=== PATIENT | male | born 1965 | race Caucasian/White ===

== ENCOUNTER 2016-05-20 02:05 | Emergency (ER) | payer MEDICAID ==
[~2016-05-20] VITALS: Ht 185.4 cm; Wt 68.0 kg
[~2016-05-20 02:05] MED LIST: ATIVAN1 MG PO; CLINDAMYCIN150 M1 PO; FOLATE1 MG PO; LACTINEX1 TAB.CHEW PO; VITAMIN B1100 MG/ML PO
[2016-05-20 02:25] VITALS: BP 135/71
--- NOTE | 2016-05-20 02:30 | NUR ---
PATIENT TO OF 1
--- NOTE | 2016-05-20 02:34 | NUR ---
PATIENT MOVED TO BED 7
--- NOTE | 2016-05-20 02:39 | NUR ---
PATIENT BEING EVALUATED ER MD DR. MAGALLANES
--- NOTE | 2016-05-20 02:46 | NUR ---
50Y/M PATIENT PRESENTS TO ED WITH REQUEST FOR MEDS REFILLS. DENIES N/V/D; SKIN IS PINK/WARM/DRY; AAOX4 WITH EVEN AND STEADY GAIT; LUNGS CLEAR BL; HR EVEN AND REGULAR; PT DENIES ANY FEVER, CP, SOB, OR COUGH AT THIS TIME; PATIENT STATES PAIN OF 0/10 AT THIS TIME; VSS; PATIENT POSITIONED FOR COMFORT; HOB ELEVATED; BEDRAILS UP X2; BED DOWN. ER MD MADE AWARE OF PT STATUS.
--- NOTE | 2016-05-20 02:55 | NUR ---
Patient discharged with v/s stable. Written and verbal after care instructions given and explained. Patient alert, oriented and verbalized understanding of instructions. Ambulatory with steady gait. All questions addressed prior to discharge. ID band removed. Patient advised to follow up with PMD. Rx of TYLENOL 325 MG given. Patient educated on indication of medication including possible reaction and side effects. Opportunity to ask questions provided and answered.
[2016-05-20 02:58] VITALS: BP 130/75
== END 2016-05-20 02:55 | disposition home or self-care (01) ==
LOC: MED 02:05
DX: Z76.0 Encounter for issue of repeat prescription (principal); R00.0 Tachycardia, unspecified; R03.0 Elevated blood-pressure reading, without diagnosis of hypertension

== ENCOUNTER 2016-05-30 17:50 | Emergency (ER) | payer MEDICAID ==
[~2016-05-30] VITALS: Ht 182.9 cm; Wt 68.0 kg
[~2016-05-30 17:50] MED LIST changes: -ATIVAN1 MG PO; +CLIN150C99 PO; -CLINDAMYCIN150 M1 PO; -FOLATE1 MG PO; +FOLI1TAB19 PO; +LAC PO; -LACTINEX1 TAB.CHEW PO; +LORA-476 PO; -VITAMIN B1100 MG/ML PO; +VITB1I PO
--- NOTE | 2016-05-30 17:50 | NUR ---
1746--Patient was BIBA at this time and taken to bed 02 via gurney per EMS.
--- NOTE | 2016-05-30 17:51 | NUR ---
1747--Dr. Khalil evaluating patient at bedside.
[2016-05-30 17:52] VITALS: BP 106/68
[2016-05-30] MEDS ORDERED: NACL 0.9% 1,000 ML IV SCH (17:52)
[2016-05-30] MEDS ORDERED: KETOROLAC 30 MG/ML VIAL IVP ONE (18:00)
--- NOTE | 2016-05-30 18:00 | NUR ---
LAB AT BEDSIDE.
--- NOTE | 2016-05-30 18:00 | NUR ---
PATIENT IS A50 YO MALE BIB EMS FROM FIELD FOR ABDOMINAL PAIN FOR ONE MONTH STATES HE HAD APPENDECTOMY, GALL BLADDER AND HERNIA SURGERY ALL AT THE SAME TIME.
[2016-05-30 18:08] LABS: BASOPHILS # (AUTO) 0.2 K/uL (0.00-0.22); BASOPHILS % (AUTO) 2.3 % (0.0-2.0); EOSINOPHILS # (AUTO) 0.2 K/uL (0-0.4); EOSINOPHILS % (AUTO) 2.2 % (0.0-4.0); HEMATOCRIT 40.6 % (36-52); HEMOGLOBIN 13.5 g/dL (12.0-18.0); LYMPHOCYTES % (AUTO) 41.3 % (20.5-51.1); MEAN CORPUSCULAR HEMOGLOBIN 28 pg (27-31); MEAN CORPUSCULAR HGB CONC 33 g/dL (33-37); MEAN CORPUSCULAR VOLUME 84 fL (80-94); MONOCYTES # (AUTO) 0.7 K/uL (0.8-1.0); MONOCYTES % (AUTO) 9.7 % (1.7-9.3); NEUTROPHILS # (AUTO) 3.3 K/uL (1.8-7.7); NEUTROPHILS % (AUTO) 44.5 % (42.2-75.2); PLATELET COUNT (AUTO) 296 K/uL (140-450); RED BLOOD CELL COUNT(AUTO) 4.85 MIL/uL (4.20-6.10); RED CELL DISTRIBUTION WIDTH 13.1 % (11.6-13.7); WHITE BLOOD COUNT (AUTO) 7.4 K/uL (4.8-10.8)
--- NOTE | 2016-05-30 18:18 | NUR ---
Patient taken to CT via annette mcallister.
--- NOTE | 2016-05-30 18:18 | NUR ---
Karyna adams in [facility] - 05/30/16 at 1831 by ALEXIS Patient taken to bed 02 via annette garcia tech.
[2016-05-30 18:22] LABS: ANION GAP 17.4 (8-16); CALCIUM 8.6 mg/dL (8.5-10.1); CARBON DIOXIDE 24.2 mmol/L (21-32); POTASSIUM 3.6 mmol/L (3.5-5.1)
[2016-05-30 18:27] LABS: ALBUMIN 3.9 g/dL (3.4-5.0); TOTAL BILIRUBIN 0.6 mg/dL (0.0-1.0)
--- NOTE | 2016-05-30 18:28 | NUR ---
Patient back from CT via [facility].
--- NOTE | 2016-05-30 18:29 | NUR ---
PT BACK FROM RADIOLOGY VIA [facility].
[2016-05-30 19:10] VITALS: BP 121/76
[2016-05-30 19:12] LABS: APPEARANCE,URINE CLEAR (CLEAR); BILIRUBIN,URINE NEGATIVE (NEGATIVE); BLOOD, URINE NEGATIVE (NEGATIVE); COLOR,URINE YELLOW (YELLOW); LEUKOCYTE ESTERASE ,URINE NEGATIVE (NEGATIVE); NITRITE, URINE NEGATIVE (NEGATIVE); PROTEIN,URINE TRACE (NEGATIVE); UGLUCOSE NEGATIVE (NEGATIVE); UROBILINOGEN,URINE 0.2 EU/dL (0.2 - 1)
[2016-05-30 19:16] LABS: BACTERIA,URINE RARE /HPF (None Seen); MUCUS,URINE 3+ /LPF (None Seen); RBC,URINE 0-3 /HPF (0-5); SQUAMOUS EPITHELIAL CELL,UR None Seen /LPF (0-3 (FEW)); URINE AMORPHOUS URATE 1+ /HPF (None Seen); WBC,URINE 0-3 /HPF (0-5)
[2016-05-30 19:21] LABS: AMPHETAMINE, URINE POS. ng/ml (NEG <=1000); BARBITURATE, URINE NEG. ng/ml (NEG <=200); BENZODIAZEPINE, URINE NEG. ng/mL (NEG <=200); CANNABINOID, URINE NEG. ng/mL (NEG <=50); COCAINE, URINE NEG. ng/mL (NEG <=300); OPIATE, URINE NEG. ng/mL (NEG <=2000); PHENCYCLIDINE SCREEN,URINE NEG. ng/mL (NEG <=25)
== END 2016-05-30 19:11 | disposition home or self-care (01) ==
LOC: MED 17:50
DX: K80.20 Calculus of gallbladder without cholecystitis without obstruction (principal); F15.10 Other stimulant abuse, uncomplicated; F17.210 Nicotine dependence, cigarettes, uncomplicated; Z71.6 Tobacco abuse counseling; Z90.49 Acquired absence of other specified parts of digestive tract; Z90.89 Acquired absence of other organs
CPT/HCPCS: 36415; 74176; 80053; 80305; 81001; 83690; 85025; 96361; 96374; 99285; J1885; J7030

== ENCOUNTER 2016-08-16 00:20 | Emergency (ER) | payer MEDICAID, OTHER ==
[~2016-08-16] VITALS: Ht 182.9 cm; Wt 68.0 kg
[~2016-08-16 00:20] MED LIST changes: +ATIVAN1 MG PO; -CLIN150C99 PO; +CLINDAMYCIN150 M1 PO; +FOLATE1 MG PO; -FOLI1TAB19 PO; -LAC PO; +LACTINEX1 TAB.CHEW PO; -LORA-476 PO; +VITAMIN B1100 MG/ML PO; -VITB1I PO
--- NOTE | 2016-08-16 00:22 | NUR ---
PT MARIO WAGGONERS. TAKEN TO BED 4
--- NOTE | 2016-08-16 00:25 | NUR ---
Dr. Ragsdale evaluating patient at bedside.
[2016-08-16 00:30] VITALS: BP 135/95
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
[2016-08-16] MEDS ORDERED: NACL 0.9% 2,500 ML IV ONE (00:31)
[2016-08-16] MEDS ORDERED: ACETAMINOPHEN EXTRA STRENGTH 500 MG TAB PO ONE (00:35)
--- NOTE | 2016-08-16 01:07 | NUR ---
X-Ray at bedside.
--- NOTE | 2016-08-16 01:17 | NUR ---
URINAL IN PLACE, PT TRYING TO URINATE
--- NOTE | 2016-08-16 01:29 | NUR ---
RESULT OF URINE DIPSTICK RELAYED TO DR. FOSTER
[2016-08-16] MEDS ORDERED: AZITHROMYCIN 500 MG in DEXTROSE 5% 250 ML IV ONE (02:25)
[2016-08-16] MEDS ORDERED: KETOROLAC 30 MG/ML VIAL IVP ONE (02:25)
[2016-08-16] MEDS ORDERED: AZITHROMYCIN 500 MG INJ VIAL IV ONE (02:42)
[2016-08-16] MEDS ORDERED: cefTRIAXone 1,000 MG VIAL ONE (02:43)
[2016-08-16 06:10] VITALS: BP 114/76
--- NOTE | 2016-08-16 06:10 | NUR ---
Patient discharged with v/s stable. Written and verbal after care instructions given and explained. Patient verbalized understanding. Ambulatory with steady gait. All questions addressed prior to discharge. Advised to follow up with PMD.
== END 2016-08-16 06:10 | disposition home or self-care (01) ==
LOC: MED 00:20
DX: J18.9 Pneumonia, unspecified organism (principal); Z90.49 Acquired absence of other specified parts of digestive tract; F12.90 Cannabis use, unspecified, uncomplicated; F19.90 Other psychoactive substance use, unspecified, uncomplicated
CPT/HCPCS: 36415; 71010; 80053; 81001; 83605; 83690; 85025; 85610; 93005; 96361; 96365; 96367; 96375; 99285; J0456; J0696; J1885; J7030; J7060; Q0092

== ENCOUNTER 2016-08-26 13:38 | Emergency (ER) | payer OTHER ==
[~2016-08-26] VITALS: Ht 177.8 cm; Wt 68.0 kg
[~2016-08-26 13:38] MED LIST changes: -ATIVAN1 MG PO; +CLIN150C99 PO; -CLINDAMYCIN150 M1 PO; -FOLATE1 MG PO; +FOLI1TAB19 PO; +LAC PO; -LACTINEX1 TAB.CHEW PO; +LORA-476 PO; -VITAMIN B1100 MG/ML PO; +VITB1I PO
[2016-08-26] MEDS ORDERED: NACL 0.9% 1,000 ML IV ONE (13:45)
--- NOTE | 2016-08-26 13:51 | NUR ---
Pt taken to CT on EMS [place].
--- NOTE | 2016-08-26 14:01 | NUR ---
Pt back from CT and waiting in hallway for ER bed.
[2016-08-26 14:31] VITALS: BP 122/78
--- NOTE | 2016-08-26 14:38 | NUR ---
PT PLACED IN BED 5 BY EMS.
[2016-08-26 14:42] LABS: ANION GAP 12.4 (8-16); CALCIUM 8.3 mg/dL (8.5-10.1); CARBON DIOXIDE 26.2 mmol/L (21-32); CHLORIDE 104 mmol/L (98-107); CREATININE 0.8 mg/dL (0.6-1.3); GFR ARICAN-AMERICAN 131 mL/min (>90); GFR NON ARICAN-AMERICAN 108 mL/min (>90); GLUCOSE 116 mg/dL (74-106); POTASSIUM 3.6 mmol/L (3.5-5.1); SODIUM SERUM 139 mmol/L (136-145); UREA NITROGEN, BLOOD 17 mg/dL (7-18)
[2016-08-26 14:47] LABS: BASOPHILS # (AUTO) 0.2 K/uL (0.00-0.22); EOSINOPHILS # (AUTO) 0.3 K/uL (0-0.4); EOSINOPHILS % (AUTO) 5.1 % (0.0-4.0); HEMATOCRIT 39.8 % (36-52); HEMOGLOBIN 13.1 g/dL (12.0-18.0); LYMPHOCYTES # (AUTO) 2.3 K/uL (2.0-11.5); LYMPHOCYTES % (AUTO) 39.8 % (20.5-51.1); MEAN CORPUSCULAR HEMOGLOBIN 28 pg (27-31); MEAN CORPUSCULAR HGB CONC 33 g/dL (33-37); MEAN CORPUSCULAR VOLUME 84 fL (80-94); MONOCYTES # (AUTO) 0.6 K/uL (0.8-1.0); MONOCYTES % (AUTO) 10.5 % (1.7-9.3); NEUTROPHILS # (AUTO) 2.5 K/uL (1.8-7.7); PLATELET COUNT (AUTO) 297 K/uL (140-450); RED BLOOD CELL COUNT(AUTO) 4.74 MIL/uL (4.20-6.10); RED CELL DISTRIBUTION WIDTH 12.9 % (11.6-13.7); WHITE BLOOD COUNT (AUTO) 5.9 K/uL (4.8-10.8)
[2016-08-26 14:57] LABS: ALANINE AMINOTRANSFERASE 77 U/L (12-78); ALBUMIN 3.1 g/dL (3.4-5.0); ALKALINE PHOSPHATASE 110 U/L (46-116); ASPARTATE AMINOTRANSFERASE 50 U/L (15-37); TOTAL BILIRUBIN 0.2 mg/dL (0.0-1.0); TOTAL PROTEIN, SERUM 8.2 g/dL (6.4-8.2)
[2016-08-26 14:59] LABS: ACETAMINOPHEN < 0.5 ug/ml (10-30); ALCOHOL, BLOOD < 3 mg/dL (<3); SALICYLATE < 2.8 mg/dL (2.8-20.0)
--- NOTE | 2016-08-26 15:20 | NUR ---
PATIENT PRESENTS TO ED WITH AMS , SOMNOLENT . DENIES N/V/D; SKIN IS PINK/WARM/DRY; ORIENTED TO NAME PLACE TIME LUNGS CLEAR BL; HR EVEN AND REGULAR; PT DENIES ANY FEVER, CP, SOB, OR COUGH AT THIS TIME; PATIENT STATES PAIN OF 0/10 AT THIS TIME; VSS; PATIENT POSITIONED FOR COMFORT; HOB ELEVATED; BEDRAILS UP X2; BED DOWN. ER MD MADE AWARE OF PT STATUS.
--- NOTE | 2016-08-26 16:11 | NUR ---
PT SITTING UP EATING TUNA SANDWICH AND APPLE JUICE----DENIES CHESTER, NO EMESIS
[2016-08-26 16:26] VITALS: BP 125/82
== END 2016-08-26 16:27 | disposition home or self-care (01) ==
LOC: MED 13:38
DX: R41.82 Altered mental status, unspecified (principal); E86.0 Dehydration
CPT/HCPCS: 36415; 70450; 80053; 85025; 93005; 96360; 99285; G0480; G0482; J7030

== ENCOUNTER 2016-08-29 12:38 | Emergency (ER) | payer OTHER ==
[~2016-08-29] VITALS: Ht 188 cm; Wt 63.0 kg
--- NOTE | 2016-08-29 12:38 | NUR ---
Patient was BIBA and taken to bed 06 via gurney per EMS.
[2016-08-29 12:46] VITALS: BP 138/92
--- NOTE | 2016-08-29 12:46 | NUR ---
50/M MARIO FOUND SLEEPING ON THE GROUND [facility] DENTIST OFFICE.PER EMS PT C/O HAVE HEADACHE X 2 DAYS; DENIES N/V/D.BS FIELD 171.PATIENT SEEN HERE YESTERDAY.WITH WEAKNESS. PER PATIENT NOT TAKING MEDS. SKIN IS PINK/WARM/DRY; AAOX4 WITH EVEN AND STEADY GAIT; LUNGS CLEAR BL; HR EVEN AND REGULAR; PT DENIES ANY FEVER, CP, SOB, OR COUGH AT THIS TIME; PATIENT STATES PAIN OF 0/10 AT THIS TIME; VSS; PATIENT POSITIONED FOR COMFORT; HOB ELEVATED; BEDRAILS UP X2; BED DOWN. ER MD MADE AWARE OF PT STATUS.
--- NOTE | 2016-08-29 12:47 | NUR ---
Dr. Khalil evaluating patient at bedside.
[2016-08-29] MEDS ORDERED: NACL 0.9% 1,000 ML IV ONE (12:55)
[2016-08-29] MEDS ORDERED: MULTIVITAMIN 1 TAB PO ONE (12:55)
[2016-08-29] MEDS ORDERED: FOLIC ACID 1 MG TAB PO ONE (12:55)
[2016-08-29] MEDS ORDERED: THIAMINE 100 MG TAB PO ONE (12:55)
[2016-08-29 13:18] LABS: BASOPHILS # (AUTO) 0.2 K/uL (0.00-0.22); BASOPHILS % (AUTO) 3.4 % (0.0-2.0); EOSINOPHILS # (AUTO) 0.1 K/uL (0-0.4); EOSINOPHILS % (AUTO) 1.8 % (0.0-4.0); HEMATOCRIT 43.3 % (36-52); LYMPHOCYTES # (AUTO) 2.5 K/uL (2.0-11.5); LYMPHOCYTES % (AUTO) 43.4 % (20.5-51.1); MEAN CORPUSCULAR HEMOGLOBIN 27 pg (27-31); MEAN CORPUSCULAR HGB CONC 32 g/dL (33-37); MEAN CORPUSCULAR VOLUME 84 fL (80-94); MONOCYTES # (AUTO) 0.2 K/uL (0.8-1.0); MONOCYTES % (AUTO) 3.8 % (1.7-9.3); NEUTROPHILS # (AUTO) 2.8 K/uL (1.8-7.7); NEUTROPHILS % (AUTO) 47.6 % (42.2-75.2); PLATELET COUNT (AUTO) 311 K/uL (140-450); RED BLOOD CELL COUNT(AUTO) 5.14 MIL/uL (4.20-6.10); RED CELL DISTRIBUTION WIDTH 13.2 % (11.6-13.7); WHITE BLOOD COUNT (AUTO) 5.8 K/uL (4.8-10.8)
[2016-08-29 13:30] LABS: ANION GAP 11.9 (8-16); CALCIUM 9.1 mg/dL (8.5-10.1); CARBON DIOXIDE 29.8 mmol/L (21-32); CREATININE 0.8 mg/dL (0.6-1.3); POTASSIUM 3.7 mmol/L (3.5-5.1)
--- NOTE | 2016-08-29 13:30 | NUR ---
PT'S AAO X4 Patient appears to be resting comfortably in bed. Vital Signs within normal limits. Respirations even and unlabored.WILL CONTINUE TO MONITOR .
[2016-08-29 13:36] LABS: ALBUMIN 3.3 g/dL (3.4-5.0); MAGNESIUM 1.9 mg/dL (1.8-2.4); PHOSPHORUS 3.7 mg/dL (2.5-4.9); TOTAL BILIRUBIN 0.2 mg/dL (0.0-1.0)
[2016-08-29 14:10] LABS: THYROID STIMULATING HORMONE 0.72 uIU/mL (0.34-3.76)
[2016-08-29 14:21] LABS: TOTAL PROTEIN, SERUM 8.8 g/dL (6.4-8.2)
[2016-08-29 14:32] VITALS: BP 122/80
--- NOTE | 2016-08-29 14:32 | NUR ---
Karyna adams in ED - 08/29/16 at 1437 by [facility] Patient discharged with v/s stable. Written and verbal after care instructions given and explained. Patient verbalized understanding. Ambulatory with steady gait. All questions addressed prior to discharge. Advised to follow up with PMD.
--- NOTE | 2016-08-29 14:32 | NUR ---
Patient given written and verbal discharge instructions and verbalizes understanding. Given copies of tests performed during visit. Patient is awake, alert and oriented. Ambulatory with steady gait. Refuses offer of half-way placement. Given list of available shelters in surrounding areas.
[2016-08-29 14:45] LABS: APPEARANCE,URINE CLEAR (CLEAR); BILIRUBIN,URINE NEGATIVE (NEGATIVE); BLOOD, URINE NEGATIVE (NEGATIVE); COLOR,URINE YELLOW (YELLOW); LEUKOCYTE ESTERASE ,URINE NEGATIVE (NEGATIVE); NITRITE, URINE NEGATIVE (NEGATIVE); PROTEIN,URINE NEGATIVE (NEGATIVE); UGLUCOSE NEGATIVE (NEGATIVE); UROBILINOGEN,URINE 0.2 EU/dL (0.2 - 1)
[2016-08-29 14:58] LABS: AMPHETAMINE, URINE POS. ng/ml (NEG <=1000); BARBITURATE, URINE NEG. ng/ml (NEG <=200); BENZODIAZEPINE, URINE NEG. ng/mL (NEG <=200); CANNABINOID, URINE POS. ng/mL (NEG <=50); COCAINE, URINE NEG. ng/mL (NEG <=300); OPIATE, URINE NEG. ng/mL (NEG <=2000); PHENCYCLIDINE SCREEN,URINE NEG. ng/mL (NEG <=25)
== END 2016-08-29 14:32 | disposition home or self-care (01) ==
LOC: MED 12:38
DX: R53.1 Weakness (principal); R51 Headache; F20.9 Schizophrenia, unspecified; F31.9 Bipolar disorder, unspecified
CPT/HCPCS: 36415; 70450; 80053; 80305; 81003; 82948; 83735; 84100; 84443; 85025; 93005; 96360; 99285; J7030

== ENCOUNTER 2016-09-18 04:35 | Emergency (ER) | payer OTHER ==
[~2016-09-18] VITALS: Ht 190.5 cm; Wt 68.0 kg
--- NOTE | 2016-09-18 04:36 | NUR ---
MARIO ALS TO ER BED 5
[2016-09-18 04:42] VITALS: BP 120/70
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
[2016-09-18] MEDS ORDERED: LORazepam 2 MG/ML VIAL IM ONE (05:40)
[2016-09-18 06:08] VITALS: BP 127/73
--- NOTE | 2016-09-18 06:09 | NUR ---
Patient discharged with v/s stable. Written and verbal after care instructions given and explained. Patient alert, oriented and verbalized understanding of instructions. Ambulatory with steady gait. All questions addressed prior to discharge. ID band removed. Patient advised to follow up with PMD. NO Rx WERE given. Patient educated on indication of medication including possible reaction and side effects. Opportunity to ask questions provided and answered.
== END 2016-09-18 06:08 | disposition home or self-care (01) ==
LOC: MED 04:35
DX: R53.1 Weakness (principal); R51 Headache
CPT/HCPCS: 96372; 99283; J2060

== ENCOUNTER 2016-09-26 02:00 | Emergency (ER) | payer OTHER ==
[~2016-09-26] VITALS: Ht 185.4 cm; Wt 63.5 kg
[2016-09-26 02:10] VITALS: BP 136/103
--- NOTE | 2016-09-26 02:15 | NUR ---
TO ER BED 6
--- NOTE | 2016-09-26 02:20 | NUR ---
PATIENT PRESENTS TO ED WITH C/O FOOT PAIN . PT DENIES N/V/D; SKIN IS PINK/WARM/DRY; AAOX4 WITH EVEN AND STEADY GAIT; LUNGS CLEAR BL; HR EVEN AND REGULAR; PT DENIES ANY FEVER, CP, SOB, OR COUGH AT THIS TIME; PATIENT STATES PAIN OF 0/10 AT THIS TIME; VSS; PATIENT POSITIONED FOR COMFORT; HOB ELEVATED; BEDRAILS UP X2; BED DOWN. ER MD MADE AWARE OF PT STATUS.
--- NOTE | 2016-09-26 03:44 | NUR ---
Patient given written and verbal discharge instructions and verbalizes understanding. Patient is awake, alert and oriented. Ambulatory with steady gait. Refuses offer of fpc placement. Given list of available shelters in surrounding areas. Pt signed Homeless waiver copy.
[2016-09-26 03:45] VITALS: BP 121/80
== END 2016-09-26 03:45 | disposition home or self-care (01) ==
LOC: MED 02:00
DX: L84 Corns and callosities (principal); R03.0 Elevated blood-pressure reading, without diagnosis of hypertension; F19.90 Other psychoactive substance use, unspecified, uncomplicated
CPT/HCPCS: 99283

== ENCOUNTER 2016-10-13 14:52 | Emergency (ER) | payer OTHER ==
[~2016-10-13] VITALS: Ht 182.9 cm; Wt 64.0 kg
[2016-10-13 15:00] VITALS: BP 110/69
--- NOTE | 2016-10-13 15:25 | NUR ---
Patient ambulated to bed 4. RN evaluating patient at bedside.
--- NOTE | 2016-10-13 15:26 | NUR ---
50M BIB SELF C/O BL FEET PAIN X 6 MONTHS FROM " WALKING TOO MUCH" . PT STATES " HEARING VOICES, TALKING TO SELF"; PT STATES NO SUICIDAL IDEATION OR IDEAS OF HURTING SELF OR OTHERS AT THIS TIME. HX: HEP C, HTN, TB (1994). DENIES N/V/D; SKIN IS PINK/WARM/DRY; AAOX4 WITH EVEN AND STEADY GAIT; LUNGS CLEAR BL; HR EVEN AND REGULAR; PT DENIES ANY FEVER, CP, SOB, OR COUGH AT THIS TIME; PATIENT STATES PAIN OF 6/10 AT THIS TIME; VSS; PATIENT POSITIONED FOR COMFORT; HOB ELEVATED; BEDRAILS UP X2; BED DOWN. ER MD MADE AWARE OF PT STATUS.
--- NOTE | 2016-10-13 15:50 | NUR ---
ER MD DR CARO EVALUATING PT AT BEDSIDE.
[2016-10-13] MEDS ORDERED: MULTIVITAMIN-12 10 ML, THIAMINE 100 MG, MAGNESIUM SULFATE 50% 2,000 MG, FOLIC ACID 5 MG... IV ONE ×5 (15:57)
--- NOTE | 2016-10-13 16:16 | NUR ---
CALLED PHARMACY FOR BANANA BAG
[2016-10-13 16:22] LABS: HEMATOCRIT 43.6 % (36-52); HEMOGLOBIN 14.4 g/dL (12.0-18.0); MEAN CORPUSCULAR HEMOGLOBIN 27 pg (27-31); MEAN CORPUSCULAR HGB CONC 33 g/dL (33-37); MEAN CORPUSCULAR VOLUME 83 fL (80-94); PLATELET COUNT (AUTO) 257 K/uL (140-450); RED BLOOD CELL COUNT(AUTO) 5.25 MIL/uL (4.20-6.10); RED CELL DISTRIBUTION WIDTH 12.7 % (11.6-13.7); WHITE BLOOD COUNT (AUTO) 10.3 K/uL (4.8-10.8)
[2016-10-13 16:51] LABS: BAND % (MANUAL) 2 % (0-8); LYMPHOCYTES % (MANUAL) 44 % (20-46); MONOCYTES % (MANUAL) 8 % (5-12); NEUTROPHILS % (MANUAL) 46 (43-65); PLATELET ESTIMATE ADEQUATE
[2016-10-13 16:55] LABS: ANION GAP 12.1 (8-16); CALCIUM 9.3 mg/dL (8.5-10.1); CARBON DIOXIDE 26.6 mmol/L (21-32); CHLORIDE 102 mmol/L (98-107); CREATININE 1.1 mg/dL (0.7-1.3); GFR ARICAN-AMERICAN 90 mL/min (>90); GFR NON ARICAN-AMERICAN 75 mL/min (>90); GLUCOSE 82 mg/dL (74-106); POTASSIUM 4.7 mmol/L (3.5-5.1); SODIUM SERUM 136 mmol/L (136-145); UREA NITROGEN, BLOOD 24 mg/dL (7-18)
[2016-10-13 17:02] LABS: ALANINE AMINOTRANSFERASE 113 U/L (16-63); ALBUMIN 4.1 g/dL (3.4-5.0); ALCOHOL, BLOOD < 3 mg/dL (<3); ALKALINE PHOSPHATASE 137 U/L (46-116); ASPARTATE AMINOTRANSFERASE 68 U/L (15-37); TOTAL BILIRUBIN 0.7 mg/dL (0.0-1.0); TOTAL PROTEIN, SERUM 9.2 g/dL (6.4-8.2)
--- NOTE | 2016-10-13 17:13 | NUR ---
Karyna adams in ED - 10/13/16 at 1714 by MED1 ROSEANN CARO EVALUATING PT AT BEDSIDE.
--- NOTE | 2016-10-13 17:13 | NUR ---
ER MD DR CARO REEVALUATING PT AT BEDSIDE.
[2016-10-13 18:55] LABS: AMPHETAMINE, URINE POS. ng/ml (NEG <=1000); BARBITURATE, URINE NEG. ng/ml (NEG <=200); BENZODIAZEPINE, URINE NEG. ng/mL (NEG <=200); CANNABINOID, URINE NEG. ng/mL (NEG <=50); COCAINE, URINE NEG. ng/mL (NEG <=300); OPIATE, URINE NEG. ng/mL (NEG <=2000); PHENCYCLIDINE SCREEN,URINE NEG. ng/mL (NEG <=25)
--- NOTE | 2016-10-13 19:10 | NUR ---
GOT REPORT FROM STEFANIE SOTELO. PT. RESTING IN BED, NO S/SX OF DISTRESS.
--- NOTE | 2016-10-13 19:10 | NUR ---
Pt report given to STEFANIE PRUETT. Transfer of care at this time.
--- NOTE | 2016-10-13 19:40 | NUR ---
Patient discharged with v/s stable. Written and verbal after care instructions given and explained. Patient alert, oriented and verbalized understanding of instructions. Ambulatory with steady gait. All questions addressed prior to discharge. ID band removed. Patient advised to follow up with PMD. Rx of NORCO 5/325 MG given. Patient educated on indication of medication including possible reaction and side effects. Opportunity to ask questions provided and answered.
[2016-10-13 19:41] VITALS: BP 108/81
== END 2016-10-13 19:40 | disposition home or self-care (01) ==
LOC: MED 14:52
DX: M72.2 Plantar fascial fibromatosis (principal); F15.10 Other stimulant abuse, uncomplicated; I10 Essential (primary) hypertension
CPT/HCPCS: 36415; 80053; 80305; 85025; 96365; 96366; 99285; A9153; G0482; J3411; J3475; J3490; J7030

== ENCOUNTER 2016-10-25 01:15 | Emergency (ER) | payer OTHER ==
[~2016-10-25] VITALS: Ht 182.9 cm; Wt 68.0 kg
[2016-10-25 01:25] VITALS: BP 122/86
[2016-10-25 06:43] VITALS: BP 122/72
== END 2016-10-25 06:48 | disposition home or self-care (01) ==
LOC: MED 01:15
DX: R42 Dizziness and giddiness (principal); F19.90 Other psychoactive substance use, unspecified, uncomplicated; I10 Essential (primary) hypertension
CPT/HCPCS: 99283

== ENCOUNTER 2016-11-03 23:50 | Emergency (ER) | payer SELFPAY ==
--- NOTE | 2016-11-04 00:15 | NUR ---
PATIENT LEFT WITHOUT BEING SEEN BY DR. Hill. NO FURTHER CARE PROVIDED FOR PATIENT.
== END 2016-11-04 00:15 | disposition left against medical advice (07) ==
LOC: MED 23:50
DX: M79.673 Pain in unspecified foot (principal); Z53.21 Procedure and treatment not carried out due to patient leaving prior to being seen by health care provider

== ENCOUNTER 2016-11-04 16:17 | Inpatient (IN) | payer OTHER ==
[~2016-11-04] VITALS: Ht 182.9 cm; Wt 64.0 kg
[2016-11-04 16:33] VITALS: BP 114/73
[2016-11-04 17:37] LABS: BASOPHILS # (AUTO) 0.4 K/uL (0.00-0.22); BASOPHILS % (AUTO) 4.8 % (0.0-2.0); HEMATOCRIT 43.3 % (36-52); LYMPHOCYTES # (AUTO) 3.1 K/uL (2.0-11.5); MEAN CORPUSCULAR HEMOGLOBIN 27 pg (27-31); MEAN CORPUSCULAR HGB CONC 32 g/dL (33-37); MEAN CORPUSCULAR VOLUME 83 fL (80-94); MONOCYTES # (AUTO) 0.5 K/uL (0.8-1.0); NEUTROPHILS # (AUTO) 5.2 K/uL (1.8-7.7); PLATELET COUNT (AUTO) 297 K/uL (140-450); RED BLOOD CELL COUNT(AUTO) 5.22 MIL/uL (4.20-6.10); RED CELL DISTRIBUTION WIDTH 13.2 % (11.6-13.7); WHITE BLOOD COUNT (AUTO) 9.2 K/uL (4.8-10.8)
[2016-11-04 17:47] LABS: APPEARANCE,URINE CLEAR (CLEAR); BILIRUBIN,URINE 1+ (NEGATIVE); BLOOD, URINE 2+ (NEGATIVE); COLOR,URINE YELLOW (YELLOW); LEUKOCYTE ESTERASE ,URINE NEGATIVE (NEGATIVE); NITRITE, URINE NEGATIVE (NEGATIVE); UGLUCOSE NEGATIVE (NEGATIVE)
[2016-11-04 17:58] LABS: CARBON DIOXIDE 21.1 mmol/L (21-32); CREATININE 1.7 mg/dL (0.7-1.3); POTASSIUM 4.1 mmol/L (3.5-5.1)
[2016-11-04 18:02] LABS: RBC,URINE >100 /HPF (0-5)
[2016-11-04 18:03] LABS: ALBUMIN 4.3 g/dL (3.4-5.0); TOTAL BILIRUBIN 0.8 mg/dL (0.0-1.0)
[2016-11-04 18:03] LABS: WBC,URINE 0-5 (RARE) /HPF (0-5)
[2016-11-04] MEDS ORDERED: NACL 0.9% 1,000 ML IV ONE (18:10)
[2016-11-04] MEDS ORDERED: ACETAMINOPHEN 325 MG TAB PO PRN (18:40)
[2016-11-04] MEDS ORDERED: MORPHINE SULFATE 2 MG/ML SYR IVP PRN (18:40)
[2016-11-04] MEDS ORDERED: MORPHINE SULFATE 4 MG/ML SYR IVP PRN (18:40)
[2016-11-04] MEDS ORDERED: ONDANSETRON 4 MG/2 ML VIAL IVP PRN (18:40)
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
[2016-11-04] MEDS: IPRATROPIUM 0.02% 0.5 MG/2.5 ML NEBU IH SCH (19:34)
[2016-11-04] MEDS: ALBUTEROL 0.083% 2.5 MG/3 ML NEBU IH SCH (19:35)
--- NOTE | 2016-11-04 19:38 | NUR ---
Respiratory Therapist at bedside for respiratory intervention.
--- NOTE | 2016-11-04 19:47 | NUR ---
Note bryan in EDM - 11/04/16 at 2010 by MEDLeslieJJ Patient noted to have existing wounds upon arrival to ER. Photos taken of wound and placed in chart. Wound covered with dressing. Physician informed.
--- NOTE | 2016-11-04 19:50 | NUR ---
Patient will be admitted to care of DR PIMENTEL . Admited to TELE 123B. Will go to room 123B. Belongings list completed. Report to SARAH WATTS .
[2016-11-04 20:00] VITALS: BP 126/83
--- NOTE | 2016-11-04 20:00 | NUR ---
ADMITTED THIS 50 YEAR OLD MALE FROM ER PER SANDOVAL WITH CC OF CHEST PAIN AND SYNCOPE, AMBULATED TO BED WITH STEADY GAIT, ASSESSMENT DONE, VITAL SIGNS STABLE, WITH NON-RADIATING CHEST PAIN 4/10, WILL MEDICATE PRN, ORIENTED TO ROOM AND CALL LIGHT, SAFETY MEASURES IN PLACE, CALL LIGHT WITHIN REACH.
[2016-11-04] MEDS: NACL 0.9% 1,000 ML IV SCH (21:05)
--- NOTE | 2016-11-04 21:10 | NUR ---
SANDWICH PROVIDED, TOLERATED WELL, MEDICATED PRN WITH MORPHINE IVP FOR CHEST PAIN, ALL NEEDS ATTENDED.
--- NOTE | 2016-11-04 22:30 | NUR ---
ROUNDED ON PT, PT MUMBLES AND TALKS WHILE EYES IS CLOSED, EASILY AROUSABLE, PT SAID THAT HE TENDS TO TALK WHILE SLEEPING AND SAID JUST TO WAKE HIM UP TO STOP IT, BED ALARM ON, MONITORED CLOSELY.
[2016-11-05] VITALS: BP 100/72
[2016-11-05] MEDS: IPRATROPIUM 0.02% 0.5 MG/2.5 ML NEBU IH SCH ×3 (01:21→12:52)
[2016-11-05] MEDS: ALBUTEROL 0.083% 2.5 MG/3 ML NEBU IH SCH ×3 (01:21→12:52)
[2016-11-05 01:58] LABS: CREATINE KINASE MB 16.4 ng/mL (0-3.6)
--- NOTE | 2016-11-05 02:10 | NUR ---
PT VOIDING FREELY USING URINAL, PUDDING AND JUICE PROVIDED PER REQUEST, MONITORED CLOSELY.
[2016-11-05 04:00] VITALS: BP 101/65
--- NOTE | 2016-11-05 04:00 | NUR ---
PT SLEEPING, NO SIGNS OF DISTRESS, VITAL SIGNS STABLE, MONITORED CLOSELY.
[2016-11-05] MEDS: NACL 0.9% 1,000 ML IV SCH ×2 (04:40→08:22)
[2016-11-05 06:07] LABS: HEMATOCRIT 37.6 % (36-52); HEMOGLOBIN 12.4 g/dL (12.0-18.0); MEAN CORPUSCULAR HEMOGLOBIN 28 pg (27-31); MEAN CORPUSCULAR HGB CONC 33 g/dL (33-37); MEAN CORPUSCULAR VOLUME 85 fL (80-94); PLATELET COUNT (AUTO) 226 K/uL (140-450); RED BLOOD CELL COUNT(AUTO) 4.45 MIL/uL (4.20-6.10); RED CELL DISTRIBUTION WIDTH 13.6 % (11.6-13.7); WHITE BLOOD COUNT (AUTO) 7.8 K/uL (4.8-10.8)
[2016-11-05 06:44] LABS: ALBUMIN 3.1 g/dL (3.4-5.0); CARBON DIOXIDE 23.7 mmol/L (21-32); CREATININE 0.9 mg/dL (0.7-1.3); POTASSIUM 3.7 mmol/L (3.5-5.1); TOTAL BILIRUBIN 0.7 mg/dL (0.0-1.0)
[2016-11-05 07:21] LABS: LYMPHOCYTES % (MANUAL) 50 % (20-46)
[2016-11-05 07:22] LABS: EOSINOPHILS % (MANUAL) 2 % (0-4); MONOCYTES % (MANUAL) 14 % (5-12)
--- NOTE | 2016-11-05 07:30 | NUR ---
RECEIVED PT AAOX4. NO SOB NOTED. NO C/O PAIN AT THIS TIME. IV TO RT AC PATENT AND INTACT. CHEST CLEAR. ABDOMEN SOFT, BOWEL SOUNDS PRESENT. NO EDEMA NOTED. INSTRUCTED PT TO CALL FOR ASSISTANCE, CALL LIGHT WITHIN REACH, PT VERBALIZED UNDERSTANDING.
--- NOTE | 2016-11-05 07:30 | NUR ---
PT SLEEPING, NO SIGNS OF DISTRESS REPORT GIVEN TO RN MANUELITO FOR CONTINUITY OF CARE.
[2016-11-05 08:00] VITALS: BP 108/66
--- NOTE | 2016-11-05 08:06 | NUR ---
PATIENT HAS BEEN SCREENED AND CATEGORIZED HIGH NUTRITION RISK. PATIENT WILL BE SEEN WITHIN 1-2 DAYS OF ADMISSION. 11/05/16-11/06/[address]
[2016-11-05] MEDS ORDERED: ASPIRIN 81 MG TAB.CHEW PO SCH (09:00)
[2016-11-05] MEDS ORDERED: ENOXAPARIN 40 MG/0.4 ML SYR SUBQ SCH (09:00)
[2016-11-05] MEDS ORDERED: HYDROcodone/APAP 5/325 MG 1 TAB TAB PO PRN (09:20)
[2016-11-05 09:50] LABS: CREATINE KINASE MB 12.7 ng/mL (0-3.6)
--- NOTE | 2016-11-05 11:45 | NUR ---
URINE SPECIMEN COLLECTED AND SENT TO LAB.
[2016-11-05 12:00] VITALS: BP 96/66
[2016-11-05 12:12] LABS: APPEARANCE,URINE CLEAR (CLEAR); BILIRUBIN,URINE NEGATIVE (NEGATIVE); BLOOD, URINE NEGATIVE (NEGATIVE); COLOR,URINE YELLOW (YELLOW); LEUKOCYTE ESTERASE ,URINE NEGATIVE (NEGATIVE); NITRITE, URINE NEGATIVE (NEGATIVE); UGLUCOSE NEGATIVE (NEGATIVE)
--- NOTE | 2016-11-05 12:52 | NUR ---
PT REFUSED BREATHING TX NO SIGNS OF DISTRESS NOTED AND IF HE NEEDS TX HE WILL CALL
--- NOTE | 2016-11-05 14:27 | NUR ---
CM NOTE FAXED INITIAL REVIEW TO [facility] [phone] SUSANNA [phone]
--- NOTE | 2016-11-05 15:17 | NUR ---
11/05/16 RD INITIAL ASSESSMENT COMPLETED PLEASE REFER TO NUTRITION ASSESSMENT UNDER CARE ACTIVITY FOR ESTIMATED NUTRITIONAL NEEDS. 1. CONTINUE CARDIAC DIET 2. CONSIDER HEALTH SHAKE X 1 DAILY 3. REFER TO CROP SPECIALIST NEEDED 4. RD TO FOLLOW UP WITHIN 3-5 DAYS; MODERATE RISK THOMAS DOWD RD
[2016-11-05 16:00] VITALS: BP 103/68
--- NOTE | 2016-11-05 17:30 | NUR ---
Elva PAYAN CAME TO SEE PT. DISCHARGE ORDER GIVEN.
--- NOTE | 2016-11-05 18:00 | NUR ---
PT CONSUMED 100% OF DINNER SERVED, FOOD TOLERATED WELL. DISCHARGE INSTRUCTIONS GIVEN TO PT WHICH VERBALIZED FULL UNDERSTANDING OF THE INSTRUCTIONS AND THE NEED TO FOLLOW UP WITH PCP WITHIN 7 DAYS. T-SHIRT, PANTS AND BUS PASS PROVIDED. ARM BANDS AND IV REMOVED, CANNULA TIP INTACT.
--- NOTE | 2016-11-05 18:25 | NUR ---
PT WHEELED OUT TO THE FRONT LOBBY IN STABLE CONDITION. AAOX4. NO SOB NOTED. NO COMPLAINTS MADE. PT STATED HE WILL GO TO HIS DAD'S HOUSE BY BUS.
== END 2016-11-05 18:25 | disposition home or self-care (01) | DRG 469 ==
LOC: MED 16:17 → MTU 18:44
PROVIDERS: ADMIT Hospitalist; ATTEND Hospitalist
DX: N17.9 Acute kidney failure, unspecified (principal); M62.82 Rhabdomyolysis; F33.9 Major depressive disorder, recurrent, unspecified; F20.9 Schizophrenia, unspecified; B17.10 Acute hepatitis C without hepatic coma; R07.9 Chest pain, unspecified; E86.0 Dehydration; B19.20 Unspecified viral hepatitis C without hepatic coma; F10.10 Alcohol abuse, uncomplicated; F17.210 Nicotine dependence, cigarettes, uncomplicated; F15.90 Other stimulant use, unspecified, uncomplicated; Z59.0 Homelessness
CPT/HCPCS: 36415; 71010; 80053; 81001; 81003; 82550; 82553; 84484; 85025; 87081; 93005; 94640; 96360; 99285; J1650; J2270; J7030; J7613; J7644

== ENCOUNTER 2016-11-08 01:40 | Emergency (ER) | payer OTHER ==
[~2016-11-08] VITALS: Ht 182.9 cm; Wt 72.6 kg
[2016-11-08 01:43] VITALS: BP 132/90
--- NOTE | 2016-11-08 02:44 | NUR ---
TO ER BED 4
--- NOTE | 2016-11-08 02:45 | NUR ---
PATIENT PRESENTS TO ED WITH C/O DOG BITE TO RT CALF . PT DENIES N/V/D; SKIN IS PINK/WARM/DRY; AAOX4 WITH EVEN AND STEADY GAIT; LUNGS CLEAR BL; HR EVEN AND REGULAR; PT DENIES ANY FEVER, CP, SOB, OR COUGH AT THIS TIME; PATIENT STATES PAIN OF 0/10 AT THIS TIME; VSS; PATIENT POSITIONED FOR COMFORT; HOB ELEVATED; BEDRAILS UP X2; BED DOWN. ER MD MADE AWARE OF PT STATUS.
[2016-11-08 03:20] VITALS: BP 132/90
== END 2016-11-08 03:20 | disposition home or self-care (01) ==
LOC: MED 01:40
DX: S81.851A Open bite, right lower leg, initial encounter (principal); R03.0 Elevated blood-pressure reading, without diagnosis of hypertension; W54.0XXA Bitten by dog, initial encounter; Y93.89 Activity, other specified; Y92.89 Other specified places as the place of occurrence of the external cause; Y99.8 Other external cause status
CPT/HCPCS: 90471; 90715; 99283

== ENCOUNTER 2016-11-28 04:23 | Emergency (ER) | payer OTHER ==
[~2016-11-28] VITALS: Ht 182.9 cm; Wt 68.0 kg
[2016-11-28 04:34] VITALS: BP 120/62
--- NOTE | 2016-11-28 04:39 | NUR ---
50Y M BIB SELF FOR FOLLOW UP VISIT S/P DOG BITE X 3 WEEKS AGO PER PT; PT DOESNT RECALL WHAT LEG HE GOT THE DOG BITE AT THE MOMENT. PT DENIES ANY N/V/D, CP, SOB AT THE MOMENT. PT BREATHING IS UNLABORED AND CLEAR BILAT. PT AMBULATED TO CHAIR WITH STEADY GAIT. ER MD DR BOUDREAUX MADE AWARE
--- NOTE | 2016-11-28 04:39 | NUR ---
PT TAKEN TO OF
--- NOTE | 2016-11-28 04:41 | NUR ---
Dr. Caceres evaluating patient at bedside.
[2016-11-28 04:48] VITALS: BP 117/69
== END 2016-11-28 04:47 | disposition home or self-care (01) ==
LOC: MED 04:23
DX: S81.851D Open bite, right lower leg, subsequent encounter (principal); W54.0XXD Bitten by dog, subsequent encounter
CPT/HCPCS: 99281

== ENCOUNTER 2016-12-19 01:54 | Emergency (ER) | payer OTHER ==
[~2016-12-19] VITALS: Ht 185.4 cm; Wt 62.1 kg
[~2016-12-19 01:54] MED LIST changes: +ATIVAN1 MG PO; -CLIN150C99 PO; +CLINDAMYCIN150 M1 PO; +FOLATE1 MG PO; -FOLI1TAB19 PO; -LAC PO; +LACTINEX1 TAB.CHEW PO; -LORA-476 PO; +VITAMIN B1100 MG/ML PO; -VITB1I PO
[2016-12-19 02:10] VITALS: BP 99/73
[2016-12-19 02:16] VITALS: BP 113/65
--- NOTE | 2016-12-19 02:26 | NUR ---
PATIENT PRESENTS TO ED WITH C/O VISUAL HALLUCINATIONS. PT ADMITS TO METHAMPHETAMINE USE AND ETOH USE. PT DENIES N/V/D; SKIN IS PINK/WARM/DRY; AAOX4 WITH EVEN AND STEADY GAIT; LUNGS CLEAR BL; HR EVEN AND REGULAR; PT DENIES ANY FEVER, CP, SOB, OR COUGH AT THIS TIME; PATIENT STATES PAIN OF 0/10 AT THIS TIME; VSS; PATIENT POSITIONED FOR COMFORT; HOB ELEVATED; BEDRAILS UP X2; BED DOWN. ER MD MADE AWARE OF PT STATUS.
[2016-12-19] MEDS ORDERED: ASPIRIN 81 MG TAB.CHEW PO ONE (03:00)
[2016-12-19] MEDS ORDERED: NACL 0.9% 1,000 ML IV ONE (03:00)
--- NOTE | 2016-12-19 03:55 | NUR ---
Patient appears to be resting comfortably in bed. Vital Signs within normal limits. Respirations even and unlabored.
== END 2016-12-19 04:30 | disposition home or self-care (01) ==
LOC: MED 01:54
DX: R07.89 Other chest pain (principal); R44.3 Hallucinations, unspecified; F17.210 Nicotine dependence, cigarettes, uncomplicated
CPT/HCPCS: 36415; 71010; 80053; 84484; 85025; 85379; 85610; 85730; 93005; 96360; 99285; J7030; Q0092

== ENCOUNTER 2017-01-26 23:45 | Emergency (ER) | payer OTHER ==
[~2017-01-26] VITALS: Ht 185.4 cm; Wt 68.9 kg
[2017-01-26 23:53] VITALS: BP 146/98
--- NOTE | 2017-01-27 01:23 | NUR ---
PT TAKEN TO BED 8
--- NOTE | 2017-01-27 01:30 | NUR ---
Patient being evaluated by at bedside.
--- NOTE | 2017-01-27 01:49 | NUR ---
51 Y/O M W/C/O L SHOULDER PAIN X 2 YRS ON AND OFF. MED HX TUBERCULOSIS, HEP C , SCHIZOPHRENIA. AAO X4, AMBULATORY WITH STAEDY GAIT. C/O LT. SHOULDER PAIN 07/24. NO TRAUMA NOR INJURY. VSS, ER MADE AWARE OF PT. STATUS.
[2017-01-27] MEDS ORDERED: IBUPROFEN 600 MG TAB PO ONE (02:40)
[2017-01-27 02:56] VITALS: BP 140/92
--- NOTE | 2017-01-27 02:57 | NUR ---
Patient discharged with v/s stable. Written and verbal after care instructions given and explained. Patient alert, oriented and verbalized understanding of instructions. Ambulatory with steady gait. All questions addressed prior to discharge. ID band removed. Patient advised to follow up with PMD. Rx of IBUPROFEN 600MG TID/PRN given. Patient educated on indication of medication including possible reaction and side effects. Opportunity to ask questions provided and answered.
--- NOTE | 2017-01-27 02:58 | NUR ---
HOMELESS PATIENT WAIVER FORM SIGN BY PT
== END 2017-01-27 02:57 | disposition home or self-care (01) ==
LOC: MED 23:45
DX: M25.511 Pain in right shoulder (principal)
CPT/HCPCS: 99283

== ENCOUNTER 2017-02-28 17:25 | Emergency (ER) | payer OTHER ==
[~2017-02-28] VITALS: Ht 182.9 cm; Wt 70.9 kg
[2017-02-28 17:33] VITALS: BP 150/98
--- NOTE | 2017-02-28 17:37 | NUR ---
PT AMBULATED TO ER BED 10. ERMD NOTIFIED OF PATIENT STATUS.
--- NOTE | 2017-02-28 17:39 | NUR ---
51/M PRESENT TO ER C/O POSSIBLE BUG BITE ON LEFT FOOT x 2 WEEKS. HX: HTN MEDS: NONE; DENIES N/V/D; SKIN IS PINK/WARM/DRY; AAOX4 WITH EVEN AND STEADY GAIT; LUNGS CLEAR BL; HR EVEN AND REGULAR; PT DENIES ANY FEVER, CP, SOB, OR COUGH AT THIS TIME; PATIENT STATES PAIN OF 4/10 AT THIS TIME; VSS; PATIENT POSITIONED FOR COMFORT; HOB ELEVATED; BEDRAILS UP X2; BED DOWN. ER MD MADE AWARE OF PT STATUS.
--- NOTE | 2017-02-28 17:43 | NUR ---
DR MAYFIELD EVALUATING AAO PT AT BEDSIDE
--- NOTE | 2017-02-28 17:57 | NUR ---
Patient discharged with v/s stable. Written and verbal after care instructions given and explained. Patient verbalized understanding. Ambulatory with steady gait. All questions addressed prior to discharge. Advised to follow up with PMD. Addendum: 02/28/17 at 1758 by SHEREE PT PROVIDED SNACK
[2017-02-28 17:58] VITALS: BP 150/98
== END 2017-02-28 17:57 | disposition home or self-care (01) ==
LOC: MED 17:25
DX: M79.671 Pain in right foot (principal); F15.90 Other stimulant use, unspecified, uncomplicated; Z72.89 Other problems related to lifestyle; I10 Essential (primary) hypertension
CPT/HCPCS: 99281

== ENCOUNTER 2017-03-10 02:13 | Emergency (ER) | payer OTHER ==
[~2017-03-10] VITALS: Ht 185.4 cm; Wt 68.0 kg
--- NOTE | 2017-03-10 02:15 | NUR ---
PATIENT AMBULATED TO ER OF1.
[2017-03-10 02:19] VITALS: BP 127/81
[2017-03-10 02:23] VITALS: BP 127/81
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
--- NOTE | 2017-03-10 02:35 | NUR ---
Patient discharged with v/s stable. Written and verbal after care instructions given and explained. Patient alert, oriented and verbalized understanding of instructions. Ambulatory with steady gait. All questions addressed prior to discharge. ID band removed. Patient advised to follow up with PMD. Rx of Seroquel given. Patient educated on indication of medication including possible reaction and side effects. Opportunity to ask questions provided and answered.
== END 2017-03-10 02:35 | disposition home or self-care (01) ==
LOC: MED 02:13
DX: Z76.0 Encounter for issue of repeat prescription (principal); G47.00 Insomnia, unspecified; I10 Essential (primary) hypertension; F17.210 Nicotine dependence, cigarettes, uncomplicated
CPT/HCPCS: 99283

== ENCOUNTER 2017-03-11 11:15 | Emergency (ER) | payer SELFPAY ==
--- NOTE | 2017-03-11 11:28 | NUR ---
PT REQUESTING RX SEROQUEL REPRINT---WAS SEEN 03/10/[address] MAGALLANES--- WILL ASK IF CAN REPRINT RX OR WANT TO RE-EVALUATE
--- NOTE | 2017-03-11 11:37 | NUR ---
PT WAS TOLD HE WILL NOT RECEIVE ANOTHER PRESCRIPTION FOR SEROQUEL---WAS INSTRUCTED TO SEE HIS THERAPIST TODAY--- PER I ASKED PT IF THERE IS ANY OTHER REASON HE WANTED TO BE SEEN BY ER PHYSICIAN? PT STATED," HE WANTED ANOTHER TOOTH BRUSH BECAUSE HE DID NOT WANT TO WALK WERE HE LEFT HIS"! PT PUT SOCKS AND SHOES BACK OUT AND AMBULATED OUT OF THE ER WITH STEADY GAIT. NOTIFIED
== END 2017-03-11 11:37 | disposition left against medical advice (07) ==
LOC: MED 11:15
DX: Z53.21 Procedure and treatment not carried out due to patient leaving prior to being seen by health care provider (principal)

== ENCOUNTER 2017-04-20 23:54 | Emergency (ER) | payer SELFPAY ==
[~2017-04-20] VITALS: Ht 185.4 cm; Wt 67.6 kg
[2017-04-21 00:10] VITALS: BP 128/80
--- NOTE | 2017-04-21 00:34 | NUR ---
AMBULATED TO ER CHAIR 4
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
[2017-04-21] MEDS ORDERED: IBUPROFEN 800 MG TAB PO ONE (01:00)
[2017-04-21 01:21] VITALS: BP 133/79
--- NOTE | 2017-04-21 01:21 | NUR ---
Patient discharged with v/s stable. Written and verbal after care instructions given and explained. Patient alert, oriented and verbalized understanding of instructions. Ambulatory with steady gait. All questions addressed prior to discharge. ID band removed. Patient advised to follow up with PMD. Rx of MOTRIN 800MG given. Patient educated on indication of medication including possible reaction and side effects. Opportunity to ask questions provided and answered.
== END 2017-04-21 01:22 | disposition home or self-care (01) ==
LOC: MED 23:54
DX: M25.512 Pain in left shoulder (principal); I10 Essential (primary) hypertension
CPT/HCPCS: 99283

== ENCOUNTER 2017-04-24 13:27 | Emergency (ER) | payer SELFPAY ==
[~2017-04-24] VITALS: Ht 182.9 cm; Wt 68.0 kg
[2017-04-24 13:35] VITALS: BP 138/89
--- NOTE | 2017-04-24 13:38 | NUR ---
pt biba taken to er bed 10
--- NOTE | 2017-04-24 13:49 | NUR ---
PT WAS B/B AMBULANCE BEHIND MD OFFICE FOR ALOC. PT WAS LETHARGIC, BUT REPONSE TO VERBAL COMMAND, VS WAS STABLE. DENIES CHESTER AND DIZZINESS. BREATHING EVEN, LUNG SOUND CLEAR, ABDOMEN ROUND AND SOFT, SKIN DIRTY BUT INTACT, WARM AND DRY. NO KO. NO FEVER AND CHILLS.
[2017-04-24] MEDS ORDERED: NACL 0.9% 1,000 ML IV ONE ×2 (14:05→15:55)
[2017-04-24 14:29] LABS: EOSINOPHILS # (AUTO) 0.1 K/uL (0-0.4); EOSINOPHILS % (AUTO) 2.3 % (0.0-4.0); LYMPHOCYTES # (AUTO) 0.8 K/uL (2.0-11.5); MONOCYTES # (AUTO) 0.2 K/uL (0.8-1.0); NEUTROPHILS # (AUTO) 4.3 K/uL (1.8-7.7)
[2017-04-24 14:35] LABS: ANION GAP 13.3 (8-16); CARBON DIOXIDE 24.4 mmol/L (21-32); CHLORIDE 108 mmol/L (98-107); CREATININE 0.8 mg/dL (0.7-1.3); GFR ARICAN-AMERICAN 130 mL/min (>90); GLUCOSE 98 mg/dL (74-106); POTASSIUM 3.7 mmol/L (3.5-5.1); SODIUM SERUM 142 mmol/L (136-145); UREA NITROGEN, BLOOD 8 mg/dL (7-18)
[2017-04-24 14:41] LABS: ALBUMIN 3.5 g/dL (3.4-5.0); ASPARTATE AMINOTRANSFERASE 43 U/L (15-37); BASOPHILS # (AUTO) 0.2 K/uL (0.00-0.22); BASOPHILS % (AUTO) 3.9 % (0.0-2.0); HEMATOCRIT 44.7 % (36-52); HEMOGLOBIN 14.7 g/dL (12.0-18.0); LYMPHOCYTES % (AUTO) 13.7 % (20.5-51.1); MEAN CORPUSCULAR HEMOGLOBIN 28 pg (27-31); MEAN CORPUSCULAR HGB CONC 33 g/dL (33-37); MEAN CORPUSCULAR VOLUME 84 fL (80-94); MONOCYTES % (AUTO) 3.8 % (1.7-9.3); NEUTROPHILS % (AUTO) 76.3 % (42.2-75.2); PLATELET COUNT (AUTO) 290 K/uL (140-450); RED BLOOD CELL COUNT(AUTO) 5.32 MIL/uL (4.20-6.10); RED CELL DISTRIBUTION WIDTH 12.7 % (11.6-13.7); TOTAL BILIRUBIN 0.4 mg/dL (0.0-1.0); WHITE BLOOD COUNT (AUTO) 5.6 K/uL (4.8-10.8)
[2017-04-24 14:42] LABS: ACETAMINOPHEN < 0.5 ug/ml (10-30); SALICYLATE < 2.8 mg/dL (2.8-20.0)
--- NOTE | 2017-04-24 15:07 | NUR ---
CALLED PT UP, GAVE URINAL, PT URINATED, URINE SAMPLE COLLECTED AND SENT TO LAB.
[2017-04-24 15:18] LABS: APPEARANCE,URINE CLEAR (CLEAR); BILIRUBIN,URINE NEGATIVE (NEGATIVE); BLOOD, URINE NEGATIVE (NEGATIVE); COLOR,URINE YELLOW (YELLOW); LEUKOCYTE ESTERASE ,URINE NEGATIVE (NEGATIVE); NITRITE, URINE NEGATIVE (NEGATIVE); PH,URINE 5.5 (5.0-9.0); UGLUCOSE NEGATIVE (NEGATIVE)
[2017-04-24 15:26] LABS: BARBITURATE, URINE NEG. ng/ml (NEG <=200); BENZODIAZEPINE, URINE NEG. ng/mL (NEG <=200); CANNABINOID, URINE POS. ng/mL (NEG <=50); COCAINE, URINE NEG. ng/mL (NEG <=300); PHENCYCLIDINE SCREEN,URINE NEG. ng/mL (NEG <=25)
[2017-04-24 15:35] LABS: OPIATE, URINE NEG. ng/mL (NEG <=2000)
--- NOTE | 2017-04-24 17:06 | NUR ---
All tests done, reviewed by Dr. Lynch, pt was d/c'd home. dc'd SL, called pt up, pt reluctant to leave. watchguard was called. Pt got up. Pt refused sign d/c paper. Pt walked out ED in steady gait with security tech escorted.
[2017-04-24 17:09] VITALS: BP 124/75
== END 2017-04-24 17:06 | disposition home or self-care (01) ==
LOC: MED 13:27
DX: E86.0 Dehydration (principal); F19.90 Other psychoactive substance use, unspecified, uncomplicated; I10 Essential (primary) hypertension
CPT/HCPCS: 36415; 71045; 80053; 80305; 81003; 82550; 84484; 85025; 93005; 96360; 96361; 99285; G0480; G0482; J7030; Q0092

== ENCOUNTER 2017-05-22 02:32 | Emergency (ER) | payer MEDICAID ==
[~2017-05-22] VITALS: Ht 185.4 cm; Wt 71.2 kg
[2017-05-22 02:37] VITALS: BP 146/91
--- NOTE | 2017-05-22 02:45 | NUR ---
PT.AMBULATED TO ER BED 12
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
--- NOTE | 2017-05-22 02:59 | NUR ---
Patient being evaluated by physician at bedside.
[2017-05-22] MEDS ORDERED: IBUPROFEN 800 MG TAB PO ONE (03:00)
[2017-05-22 03:55] VITALS: BP 140/88
--- NOTE | 2017-05-22 03:55 | NUR ---
Patient discharged with v/s stable. Written and verbal after care instructions given and explained. Patient alert, oriented and verbalized understanding of instructions. Ambulatory with steady gait. All questions addressed prior to discharge. ID band removed. Patient advised to follow up with PMD. Rx of MOTRIN 800MG AND ORAJEL given. Patient educated on indication of medication including possible reaction and side effects. Opportunity to ask questions provided and answered.
== END 2017-05-22 03:55 | disposition home or self-care (01) ==
LOC: MED 02:32
DX: S00.512A Abrasion of oral cavity, initial encounter (principal); M25.512 Pain in left shoulder; G89.29 Other chronic pain; R03.0 Elevated blood-pressure reading, without diagnosis of hypertension; I10 Essential (primary) hypertension; X58.XXXA Exposure to other specified factors, initial encounter; Y93.89 Activity, other specified; Y92.89 Other specified places as the place of occurrence of the external cause; Y99.8 Other external cause status
CPT/HCPCS: 99283

== ENCOUNTER 2017-06-09 05:05 | Emergency (ER) | payer SELFPAY ==
[~2017-06-09] VITALS: Ht 182.9 cm; Wt 72.6 kg
--- NOTE | 2017-06-09 05:08 | NUR ---
PT MARIO WAGGONERS. TAKEN TO BED 4
--- NOTE | 2017-06-09 05:10 | NUR ---
PATIENT PRESENTS TO ED WITH FOOT AND NECK PAIN. PT STATES THAT A BUG BIT HIS FOOT. DENIES N/V/D; SKIN IS PINK/WARM/DRY; AAOX4 WITH EVEN AND STEADY GAIT; LUNGS CLEAR BL; HR EVEN AND REGULAR; PT DENIES ANY FEVER, CP, SOB, OR COUGH AT THIS TIME; PATIENT STATES PAIN OF 6/10 AT THIS TIME; VSS; PATIENT POSITIONED FOR COMFORT; HOB ELEVATED; BEDRAILS UP X2; BED DOWN. ER MD MADE AWARE OF PT STATUS.
[2017-06-09 05:12] VITALS: BP 144/98
[2017-06-09] MEDS ORDERED: KETOROLAC 60 MG/2 ML VIAL IM ONE (05:15)
[2017-06-09 06:00] VITALS: BP 139/83
== END 2017-06-09 06:00 | disposition home or self-care (01) ==
LOC: MED 05:05
DX: M54.2 Cervicalgia (principal); M79.671 Pain in right foot; M79.1 Myalgia; F19.90 Other psychoactive substance use, unspecified, uncomplicated; I10 Essential (primary) hypertension
CPT/HCPCS: 96372; 99283; J1885

== ENCOUNTER 2017-06-22 00:11 | Emergency (ER) | payer SELFPAY ==
[~2017-06-22] VITALS: Ht 182.9 cm; Wt 73.3 kg
[2017-06-22 00:29] VITALS: BP 133/78
--- NOTE | 2017-06-22 00:33 | NUR ---
Karyna adams in [facility] - 06/22/17 at 0033 by FLOWER PT TAKEN TO CHAIR [place]
--- NOTE | 2017-06-22 00:33 | NUR ---
PT AMB TO ER CHAIR E
--- NOTE | 2017-06-22 00:35 | NUR ---
51/M CAME IN W C/O 06/24 BILATERAL FOOT PAIN. DENIES TRAUMA/INJURY, +PMSC TO BLE. PMH: HTN, BIPOLAR, SCHIZOPHRENIA.
--- NOTE | 2017-06-22 00:43 | NUR ---
Dr. Caceres evaluating patient.
[2017-06-22] MEDS ORDERED: IBUPROFEN 800 MG TAB PO ONE (00:45)
[2017-06-22 01:21] VITALS: BP 128/76
== END 2017-06-22 01:21 | disposition home or self-care (01) ==
LOC: MED 00:11
DX: M79.672 Pain in left foot (principal); M79.671 Pain in right foot; I10 Essential (primary) hypertension
CPT/HCPCS: 99283

== ENCOUNTER 2017-06-29 04:00 | Emergency (ER) | payer SELFPAY ==
[~2017-06-29] VITALS: Ht 182.9 cm; Wt 72.6 kg
[2017-06-29 04:04] VITALS: BP 143/86
[2017-06-29] MEDS: KETOROLAC 60 MG/2 ML VIAL IM ONE (05:15)
[2017-06-29 06:45] VITALS: BP 132/75
== END 2017-06-29 06:45 | disposition home or self-care (01) ==
LOC: MED 04:00
DX: M54.2 Cervicalgia (principal); M25.512 Pain in left shoulder; I10 Essential (primary) hypertension; Z90.49 Acquired absence of other specified parts of digestive tract; F17.200 Nicotine dependence, unspecified, uncomplicated
CPT/HCPCS: 99283; J1885

== ENCOUNTER 2017-08-07 00:59 | Emergency (ER) | payer MEDICAID ==
[~2017-08-07] VITALS: Ht 182.9 cm; Wt 72.6 kg
[2017-08-07 01:07] VITALS: BP 115/73
[2017-08-07 01:28] VITALS: BP 120/70
== END 2017-08-07 01:28 | disposition home or self-care (01) ==
LOC: MED 00:59
DX: J02.9 Acute pharyngitis, unspecified (principal); I10 Essential (primary) hypertension
CPT/HCPCS: 99283

== ENCOUNTER 2018-03-10 22:49 | Emergency (ER) | payer MEDICAID, OTHER ==
[~2018-03-10] VITALS: Ht 170.2 cm; Wt 74.8 kg
[2018-03-10 22:49] VITALS: BP 139/85
[2018-03-10 23:17] LABS: BASOPHILS # (AUTO) 0.1 K/uL (0.00-0.22); BASOPHILS % (AUTO) 1.2 % (0.0-2.0); EOSINOPHILS # (AUTO) 0.1 K/uL (0-0.4); EOSINOPHILS % (AUTO) 1.8 % (0.0-4.0); HEMOGLOBIN 13.1 g/dL (12.0-18.0); LYMPHOCYTES # (AUTO) 2.7 K/uL (2.0-11.5); LYMPHOCYTES % (AUTO) 33.6 % (20.5-51.1); MEAN CORPUSCULAR HEMOGLOBIN 28 pg (27-31); MEAN CORPUSCULAR HGB CONC 33 g/dL (33-37); MEAN CORPUSCULAR VOLUME 84.5 fL (80-94); MONOCYTES # (AUTO) 0.7 K/uL (0.8-1.0); MONOCYTES % (AUTO) 8.2 % (1.7-9.3); NEUTROPHILS # (AUTO) 4.4 K/uL (1.8-7.7); NEUTROPHILS % (AUTO) 55.2 % (42.2-75.2); PLATELET COUNT (AUTO) 281 K/uL (140-450); RED BLOOD CELL COUNT(AUTO) 4.73 MIL/uL (4.20-6.10); RED CELL DISTRIBUTION WIDTH 13.8 % (11.6-13.7)
[2018-03-10 23:27] LABS: ANION GAP 12.2 (8-16); CARBON DIOXIDE 26.3 mmol/L (21-32); CHLORIDE 100 mmol/L (98-107); CREATININE 0.8 mg/dL (0.7-1.3); GFR ARICAN-AMERICAN 130 mL/min (>90); GLUCOSE 90 mg/dL (74-106); POTASSIUM 3.5 mmol/L (3.5-5.1); SODIUM SERUM 135 mmol/L (136-145); UREA NITROGEN, BLOOD 15 mg/dL (7-18)
[2018-03-10 23:33] LABS: ACETAMINOPHEN < 0.5 ug/ml (10-30); ALBUMIN 3.2 g/dL (3.4-5.0); ASPARTATE AMINOTRANSFERASE 98 U/L (15-37); SALICYLATE < 2.8 mg/dL (2.8-20.0); TOTAL BILIRUBIN 0.4 mg/dL (0.0-1.0)
[2018-03-11 00:29] LABS: BARBITURATE, URINE NEG. ng/ml (NEG <=200); BENZODIAZEPINE, URINE NEG. ng/mL (NEG <=200); CANNABINOID, URINE NEG. ng/mL (NEG <=50); COCAINE, URINE NEG. ng/mL (NEG <=300); OPIATE, URINE NEG. ng/mL (NEG <=2000); PHENCYCLIDINE SCREEN,URINE NEG. ng/mL (NEG <=25)
[2018-03-11 00:47] VITALS: BP 136/90
== END 2018-03-11 00:47 | disposition home or self-care (01) ==
LOC: MED 22:49
DX: F15.10 Other stimulant abuse, uncomplicated (principal); I10 Essential (primary) hypertension; F20.9 Schizophrenia, unspecified; F31.9 Bipolar disorder, unspecified; Z59.0 Homelessness
CPT/HCPCS: 36415; 51701; 80053; 80305; 85025; 93005; 99284; G0480; G0482

== ENCOUNTER 2018-04-22 15:22 | Emergency (ER) | payer OTHER ==
[~2018-04-22] VITALS: Ht 182.9 cm; Wt 72.6 kg
[2018-04-22 15:35] VITALS: BP 118/86
--- NOTE | 2018-04-22 15:36 | NUR ---
PT AMBULATED TO BED 3
--- NOTE | 2018-04-22 15:42 | NUR ---
52/M BIB SELF C/O L FOOT KARYNA X 2 WEEKS, -SWELLING, DENIES TX/INJURY. PT REPORTED HAS HX OF HTN. MED : NONE. DENIES N/V/D; SKIN IS PINK/WARM/DRY; AAOX4 WITH EVEN AND STEADY GAIT; LUNGS CLEAR BL; HR EVEN AND REGULAR; PT DENIES ANY FEVER, CP, SOB, OR COUGH AT THIS TIME; PATIENT STATES PAIN OF 1/10 AT THIS TIME, PATIENT POSITIONED FOR COMFORT; HOB ELEVATED; BEDRAILS UP X2; BED DOWN. ER MD MADE AWARE OF PT STATUS. PT STATED HE LIVES WITH HIS FRIEND AT HIS FRIEND HOME.
[2018-04-22] MEDS ORDERED: KETOROLAC 60 MG/2 ML VIAL IM ONE (15:55)
[2018-04-22 16:29] VITALS: BP 107/72
--- NOTE | 2018-04-22 16:29 | NUR ---
Patient discharged with v/s stable. Written and verbal after care instructions given and explained. Patient alert, oriented and verbalized understanding of instructions. Ambulatory with steady gait. All questions addressed prior to discharge. ID band removed. Patient advised to follow up with PMD. Rx of ACETAMINOPHEN 500MG AND CURAD MEDIPLAST 40% PAD given. Patient educated on indication of medication including possible reaction and side effects. Opportunity to ask questions provided and answered.
== END 2018-04-22 16:29 | disposition home or self-care (01) ==
LOC: MED 15:22
DX: L84 Corns and callosities (principal); I10 Essential (primary) hypertension
CPT/HCPCS: 96372; 99283; J1885

== ENCOUNTER 2018-04-25 15:57 | Emergency (ER) | payer OTHER ==
[~2018-04-25] VITALS: Ht 185.4 cm; Wt 72.6 kg
[2018-04-25 16:05] VITALS: BP 126/72
--- NOTE | 2018-04-25 16:11 | NUR ---
52/ M BIB EMS, C/O OF LEFT FOOT PAIN. PAIN IS 4/10 CONSTANT PRESSURE/ SHARP, AGGRAVATED BY AMBULATION. WAS SEEN HERE SEVERAL TIMES FOR SAME PROBLEM. NEVER GOT HIS MEDS FILLED. LEFT FOOT IS EDEMATOUS, RED, WARM TO TOUCH, CAP REFILL <4 SECS, +PEDAL PULSES. TENDER TO TOUCH, HAS WHAT APPEARS TO BE A BLISTER ON 2ND TOE, DRAINAGE CLEAR, CALLUS ON BALL OF THE FOOT. PATIENT REPORTS PICKING AT WOUND. AWAKE AND ALERT, CLEAR SPEECH, UNABLE TO AMBULATE. BREATHING EVEN AND UNLABORED, DENIES ABDOMINAL DISCOMFORT, N/V/D, FEVERS, SOB, OR CP. PATIENT IS HOMELESS, SAFETY PRECAUTIONS IN PLACE, AWAITING MD EVALUATION, WILL CONTINUE TO MONITOR.
[2018-04-25] MEDS ORDERED: KETOROLAC 60 MG/2 ML VIAL IM ONE (16:30)
[2018-04-25] MEDS ORDERED: SULFAMETH/TRIMETH DS 800/160MG 1 TAB PO ONE (16:30)
[2018-04-25] MEDS ORDERED: CLINDAMYCIN 150 MG CAP PO ONE (16:30)
[2018-04-25 16:59] VITALS: BP 130/81
--- NOTE | 2018-04-25 16:59 | NUR ---
Patient given written and verbal discharge instructions and verbalizes understanding. Given copies of tests performed during visit. Patient is awake, alert and oriented. Ambulatory with steady gait. Refuses offer of penitentiary placement. Given list of available shelters in surrounding areas. GAVE FOOD & CLOTHES, SHOES AT THIS TIME. Patient advised to follow up with PMD. Rx of BACTRIM&MOTRIN given. Patient educated on indication of medication including possible reaction and side effects. Opportunity to ask questions provided and answered.
--- NOTE | 2018-04-25 16:59 | NUR ---
Note shellieone in EDM - 04/25/[address] [facility] Patient discharged with v/s stable. Written and verbal after care instructions given and explained. Patient alert, oriented and verbalized understanding of instructions. Ambulatory with steady gait. All questions addressed prior to discharge. ID band removed. Patient advised to follow up with PMD. Rx of BACTRIM&MOTRIN given. Patient educated on indication of medication including possible reaction and side effects. Opportunity to ask questions provided and answered.
== END 2018-04-25 16:59 | disposition home or self-care (01) ==
LOC: MED 15:57
DX: L03.116 Cellulitis of left lower limb (principal); I10 Essential (primary) hypertension
CPT/HCPCS: 96372; 99283; J1885

== ENCOUNTER 2018-05-09 22:45 | Emergency (ER) | payer OTHER ==
[~2018-05-09] VITALS: Ht 185.4 cm; Wt 74.8 kg
[2018-05-09 22:48] VITALS: BP 157/96
--- NOTE | 2018-05-09 22:50 | NUR ---
PT TAKEN TO BED 8
--- NOTE | 2018-05-09 23:00 | NUR ---
52/M PRESENTS TO ED, C/O L FOOT PAIN. PT STATED THAT HE HAD A CALLUS THAT DEVELOPED INTO A WOUND. 3CM X 5CM SUPERFICIAL ULCER NOTED ON PLANTAR ASPECT OF L FOOT. PT AOX4, GCS 15, RR EVEN AND UNLABORED.
--- NOTE | 2018-05-09 23:01 | NUR ---
PT IS HOMELESS. PT STATED THAT HE STAYS IN THE LOCAL ARE, REFUSED TRANSPORT OR OTHER NEEDS AT THIS TIME.
[2018-05-09] MEDS ORDERED: BACITRACIN OINT 500 UNITS/GM PKT TP ONE (23:15)
[2018-05-09 23:50] VITALS: BP 144/85
--- NOTE | 2018-05-09 23:50 | NUR ---
Patient discharged with v/s stable. Written and verbal after care instructions given and explained. Patient alert, oriented and verbalized understanding of instructions. Ambulatory with steady gait. All questions addressed prior to discharge. ID band removed. Patient advised to follow up with PMD. Rx of Bactracin given. Patient educated on indication of medication including possible reaction and side effects. Opportunity to ask questions provided and answered. Refuses offer of jail placement. Given list of available shelters in surrounding areas.
== END 2018-05-09 23:50 | disposition home or self-care (01) ==
LOC: MED 22:45
DX: L97.429 Non-pressure chronic ulcer of left heel and midfoot with unspecified severity (principal); I10 Essential (primary) hypertension; Z59.0 Homelessness
CPT/HCPCS: 99283

== ENCOUNTER 2018-05-10 21:48 | Emergency (ER) | payer OTHER ==
[~2018-05-10] VITALS: Ht 185.4 cm; Wt 72.6 kg
[2018-05-10 22:29] VITALS: BP 146/96
--- NOTE | 2018-05-10 23:18 | NUR ---
PT AMBULATED TO BED 6
--- NOTE | 2018-05-10 23:21 | NUR ---
Dr. Ragsdale evaluating patient at bedside.
--- NOTE | 2018-05-10 23:27 | NUR ---
PT BIB SELF FOR L FOOT PAIN. PT REPORTS NON RATIADING SHARP PAIN AT 8/10 ON BOTTOM OF L FOOT AND TOES. PT HAS WOUND ON BOTTOM OF L FOOT NEAR TOES. NO DRAINAGE PRESENT, MEASURES [id number], WOUND BED HAS ESCHAR PRESENT, PERIWOUND HAS ERYTHEMA PRESENT, NO EDEMA PRESENT AROUND WOUND. VSS. ER MD TO SEE PT. MEDHX: DENIES RX: DENIES
--- NOTE | 2018-05-11 00:43 | NUR ---
X-Ray at bedside.
--- NOTE | 2018-05-11 01:51 | NUR ---
PT RESTING IN BED WITH EYES CLOSED. PT REPORTS PAIN AT 6/10 AT THIS TIME. VSS. WILL CONTINUE TO MONITOR.
--- NOTE | 2018-05-11 02:07 | NUR ---
PT SOAKING FEET IN WARM WATER IN PREPARATION FOR WOUND CARE.
[2018-05-11] MEDS ORDERED: BACITRACIN OINT 500 UNITS/GM PKT TP ONE ×2 (02:18→02:50)
--- NOTE | 2018-05-11 02:24 | NUR ---
PT PROVIDED FOOD. PT STILL SOAKING FEET, COMPLAINING OF NECK PAIN AT 5/10 AT THIS TIME WHEN HE TURNS HIS NECK. VSS. WILL CONTINUE TO MONITOR.
--- NOTE | 2018-05-11 02:40 | NUR ---
PT FEET WRAPPED WITH ROLLER GAUZE AFTER BACITRACIN APPLIED. OPTIFOAM DRESSING PLACED UNDER L FOOT FOR ADDITIONAL PADDING, +CSM
[2018-05-11 02:47] VITALS: BP 142/90
--- NOTE | 2018-05-11 02:47 | NUR ---
Patient discharged with v/s stable. Written and verbal after care instructions given and explained. Patient alert, oriented and verbalized understanding of instructions. Ambulatory with steady gait. All questions addressed prior to discharge. ID band removed. Patient advised to follow up with PMD. Rx of KEFLEX given. Patient educated on indication of medication including possible reaction and side effects. Opportunity to ask questions provided and answered. PT GIVEN HOMELESS RESOURCE PACKET AND FOOD UPON DISCHARGE. PT DENIED BUS PASS STATEING THAT HE USES HIS BIKE. PT WEARING WEATHER APPROPRIATE CLOTHING. PT GIVEN RX CARDS TO ASSIST IN GETTING PRESCRIPTION.
== END 2018-05-11 02:47 | disposition home or self-care (01) ==
LOC: MED 21:48
DX: L97.529 Non-pressure chronic ulcer of other part of left foot with unspecified severity (principal); I10 Essential (primary) hypertension
CPT/HCPCS: 73630; 99283; Q0092

== ENCOUNTER 2018-05-16 00:13 | Emergency (ER) | payer OTHER ==
[~2018-05-16] VITALS: Ht 182.9 cm; Wt 72.6 kg
[2018-05-16 00:17] VITALS: BP 124/78
--- NOTE | 2018-05-16 00:20 | NUR ---
PT AMBULATED TO BED 11
--- NOTE | 2018-05-16 01:00 | NUR ---
PT BIB SELF STATED HE "NEEDS FOLLOW UP" FOR ONGOING L FOOT PAIN, UNABLE TO VERBALIZE PAIN SCLAE. PT WAS SEEN LAST WEEK FOR ULCER FROM A CALLUS ON PLANTAR ASPECT OF L FOOT. CMS INTACT, CALLUS IS PEELING OFF. NO SIGNS OF ERYTHEMA OR EDEMA. HOMELESS PACKET GIVEN, WAIVER SIGNED AND MEAL PROVIDED TO PATIENT.
[2018-05-16 01:37] VITALS: BP 124/78
== END 2018-05-16 01:38 | disposition home or self-care (01) ==
LOC: MED 00:13
DX: L84 Corns and callosities (principal); I10 Essential (primary) hypertension
CPT/HCPCS: 99281

== ENCOUNTER 2018-05-17 02:06 | Emergency (ER) | payer OTHER ==
[~2018-05-17] VITALS: Ht 185.4 cm; Wt 68.0 kg
[2018-05-17 02:06] VITALS: BP 130/97
--- NOTE | 2018-05-17 02:06 | NUR ---
PT BEDSIDE TRIAGED IN [facility]
--- NOTE | 2018-05-17 02:24 | NUR ---
PATIENT PRESENTS TO ED WITH RE-CHECK WOUND. PT STATES HE WANTS HIS RIGHT FOOT TO HAVE AN X-RAY AND LEFT FOOT TO BE WRAPPED. DENIES N/V/D; SKIN IS PINK/WARM/DRY; AAOX4 WITH EVEN AND STEADY GAIT; LUNGS CLEAR BL; HR EVEN AND REGULAR; PT DENIES ANY FEVER, CP, SOB, OR COUGH AT THIS TIME; PATIENT STATES PAIN OF 0/10 AT THIS TIME; VSS. ER MD MADE AWARE OF PT STATUS. PMH: HTN, TB, HEP-C RX: DENIES
[2018-05-17 02:36] VITALS: BP 129/90
== END 2018-05-17 02:36 | disposition home or self-care (01) ==
LOC: MED 02:06
DX: L84 Corns and callosities (principal); I10 Essential (primary) hypertension
CPT/HCPCS: 99281

== ENCOUNTER 2018-05-30 17:31 | Emergency (ER) | payer OTHER ==
[~2018-05-30] VITALS: Ht 185.4 cm; Wt 68.0 kg
--- NOTE | 2018-05-30 17:44 | NUR ---
PT AMBULATES TO BED 2
[2018-05-30 17:45] VITALS: BP 157/89
--- NOTE | 2018-05-30 17:55 | NUR ---
PT IS A 52 Y/O MALE WHO PRESENTS TO THE ED C/O BILATERAL FOOT PAIN. PT STATES THAT IT HURTS WHEN HE WALKS. PT IS CURRENTLY TAKING MOTRIN FOR PAIN. NOTED CALLOUS ON BOTTOM OF R FOOT. PT REPORTS 3/10 ACHING PAIN, NO OBVIOUS TRAUMA/DEFORMITY. PT DENIES CP, SOB, N/V/D. PT AWAKE AND ALERT, RR EVEN/UNLABORED. PT REPOSITIONED FOR COMFORT, BED IN LOWEST POSITION. ER MD DR. MAGALLANES NOTIFIED. WILL CONTINUE TO MONITOR.
--- NOTE | 2018-05-30 18:00 | NUR ---
Patient being evaluated by physician at bedside.
[2018-05-30 18:25] VITALS: BP 148/82
--- NOTE | 2018-05-30 18:25 | NUR ---
Patient given homeless resource packet, given food and water, patient wearing appropriate clothing at this time, also given hand check grader and wipes. Patient discharged with v/s stable. Written and verbal after care instructions given and explained. Patient verbalized understanding. Ambulatory with steady gait. All questions addressed prior to discharge. Advised to follow up with PMD.
== END 2018-05-30 18:25 | disposition home or self-care (01) ==
LOC: MED 17:31
DX: L84 Corns and callosities (principal); I10 Essential (primary) hypertension; F20.9 Schizophrenia, unspecified
CPT/HCPCS: 99283

== ENCOUNTER 2018-05-31 14:02 | Emergency (ER) | payer SELFPAY ==
--- NOTE | 2018-05-31 14:15 | NUR ---
patient called to be triaged no answer
== END 2018-05-31 14:22 | disposition left against medical advice (07) ==
LOC: MED 14:02
DX: Z53.21 Procedure and treatment not carried out due to patient leaving prior to being seen by health care provider (principal)

== ENCOUNTER 2018-06-14 03:22 | Emergency (ER) | payer OTHER ==
[~2018-06-14] VITALS: Ht 185.4 cm; Wt 72.6 kg
[2018-06-14 03:30] VITALS: BP 133/90
--- NOTE | 2018-06-14 03:30 | NUR ---
PT BIB SELF C/O BL FOOT PAIN. PT STATES 3/10 BL FOOT PAIN X3 WEEKS, DENIES FALL OR TRAUMA. DENIES N/V/D. PEDIAL PULSES WNL BL. SKIN WARM DRY AND INTACT. NON-PITTING EDEMA, NO REDNESS OR DEFORMITY NOTED. PT IN BED; BED IN LOWER LOCKED POSITION. ER AWARE. WILL CONTINUE TO MONITOR.
--- NOTE | 2018-06-14 03:30 | NUR ---
TO BED # 03 AMBULATORY , REPORT GIVEN TO MARJ WATTS
[2018-06-14] MEDS ORDERED: ACETAMINOPHEN EXTRA STRENGTH 500 MG TAB PO ONE (03:35)
--- NOTE | 2018-06-14 03:37 | NUR ---
Patient discharged by Dr. Weems, with v/s stable. Patient states he feels better and is okay to go home now. Written and verbal after care instructions given and explained. Patient alert, oriented and verbalized understanding of instructions. Ambulatory with steady gait. All questions addressed prior to discharge. ID band removed. Patient advised to follow up with PMD. Rx of Tylenol given. Patient educated on indication of medication including possible reaction and side effects. Opportunity to ask questions provided and answered.
[2018-06-14 04:10] VITALS: BP 132/89
== END 2018-06-14 03:37 | disposition home or self-care (01) ==
LOC: MED 03:22
DX: M79.672 Pain in left foot (principal); M79.671 Pain in right foot; I10 Essential (primary) hypertension
CPT/HCPCS: 99282

== ENCOUNTER 2018-07-14 10:21 | Emergency (ER) | payer OTHER ==
[~2018-07-14] VITALS: Ht 182.9 cm; Wt 72.6 kg
[2018-07-14 10:28] VITALS: BP 141/78
--- NOTE | 2018-07-14 10:31 | NUR ---
PT TO BED 8 WITH STEADY GAIT
--- NOTE | 2018-07-14 10:35 | NUR ---
PATIENT PRESENTS TO ED WITH C/O SCABS ON ABD/RT KNEE, PENILE AREA AND BUTTOX X 1 WEEK. PAIN 4/10. PT ADMITS TO METHAMPHETAMINE USE ON REGULAR BASIS. PT STATES HE IS GOING HOME TO HIS FAMILY. PT DENIES N/V/D; AAOX4 WITH EVEN AND STEADY GAIT; LUNGS CLEAR BL; PATIENT POSITIONED FOR COMFORT; HOB ELEVATED; BEDRAILS UP X2; BED DOWN. PENDING ER MD EVALUATION.
--- NOTE | 2018-07-14 11:07 | NUR ---
Patient discharged with v/s stable. Written and verbal after care instructions given and explained. Patient alert, oriented and verbalized understanding of instructions. Ambulatory with steady gait. All questions addressed prior to discharge. ID band removed. Patient advised to follow up with PMD. Rx of CEPHALEXIN given. Patient educated on indication of medication including possible reaction and side effects. Opportunity to ask questions provided and answered.
== END 2018-07-14 11:07 | disposition home or self-care (01) ==
LOC: MED 10:21
DX: L98.9 Disorder of the skin and subcutaneous tissue, unspecified (principal); N48.22 Cellulitis of corpus cavernosum and penis; R10.30 Lower abdominal pain, unspecified; I10 Essential (primary) hypertension; F17.200 Nicotine dependence, unspecified, uncomplicated; Z90.49 Acquired absence of other specified parts of digestive tract; Z59.0 Homelessness
CPT/HCPCS: 99283

== ENCOUNTER 2018-07-18 02:50 | Emergency (ER) | payer OTHER ==
[~2018-07-18] VITALS: Ht 190.5 cm; Wt 72.6 kg
[2018-07-18 02:55] VITALS: BP 135/90
--- NOTE | 2018-07-18 03:00 | NUR ---
PT TO ED WITH C/O BUG BITE TO L BUTTOCKS. REDNESS NOTED TO L BUTTOCKS. NO DRAINGE NOTED. PT UNAWARE OF WHAT BIT HIM. PT PLACED INTO BED, PENDING MD DENNIS.
[2018-07-18] MEDS ORDERED: KETOROLAC 60 MG/2 ML VIAL IM ONE (03:30)
[2018-07-18] MEDS ORDERED: CLINDAMYCIN 600 MG/4 ML VIAL IM ONE (03:30)
--- NOTE | 2018-07-18 04:09 | NUR ---
Patient discharged with v/s stable. Written and verbal after care instructions given and explained. Patient alert, oriented and verbalized understanding of instructions. Ambulatory with steady gait. All questions addressed prior to discharge. ID band removed. Patient advised to follow up with PMD. Rx of BACTRIM, MOTRIN given. Patient educated on indication of medication including possible reaction and side effects. Opportunity to ask questions provided and answered.
[2018-07-18 04:11] VITALS: BP 139/86
== END 2018-07-18 04:09 | disposition home or self-care (01) ==
LOC: MED 02:50
DX: S30.860A Insect bite (nonvenomous) of lower back and pelvis, initial encounter (principal); L08.9 Local infection of the skin and subcutaneous tissue, unspecified; I10 Essential (primary) hypertension; W57.XXXA Bitten or stung by nonvenomous insect and other nonvenomous arthropods, initial encounter; Y93.89 Activity, other specified; Y92.89 Other specified places as the place of occurrence of the external cause; Y99.8 Other external cause status
CPT/HCPCS: 96372; 99283; J1885; J3490

== ENCOUNTER 2018-08-01 03:13 | Emergency (ER) | payer OTHER ==
[~2018-08-01] VITALS: Ht 185.4 cm; Wt 72.6 kg
[2018-08-01 03:22] VITALS: BP 125/75
--- NOTE | 2018-08-01 03:24 | NUR ---
TO LOBBY A/W BED, AMBULATORY
[2018-08-01] MEDS ORDERED: fentaNYL 0.05 MG/ML VIAL IVP ONE (06:45)
--- NOTE | 2018-08-01 06:50 | NUR ---
BLOOD DRAWN AND SENT TO LAB
[2018-08-01 07:14] LABS: BASOPHILS # (AUTO) 0.1 K/uL (0.00-0.22); BASOPHILS % (AUTO) 0.8 % (0.0-2.0); EOSINOPHILS # (AUTO) 0.3 K/uL (0-0.4); EOSINOPHILS % (AUTO) 4.6 % (0.0-4.0); HEMATOCRIT 44.1 % (36-52); HEMOGLOBIN 14.6 g/dL (12.0-18.0); LYMPHOCYTES # (AUTO) 2.7 K/uL (2.0-11.5); LYMPHOCYTES % (AUTO) 40.6 % (20.5-51.1); MEAN CORPUSCULAR HEMOGLOBIN 28 pg (27-31); MEAN CORPUSCULAR HGB CONC 33 g/dL (33-37); MEAN CORPUSCULAR VOLUME 83.9 fL (80-94); MONOCYTES # (AUTO) 0.7 K/uL (0.8-1.0); MONOCYTES % (AUTO) 10.7 % (1.7-9.3); NEUTROPHILS # (AUTO) 2.9 K/uL (1.8-7.7); NEUTROPHILS % (AUTO) 43.3 % (42.2-75.2); PLATELET COUNT (AUTO) 229 K/uL (140-450); RED BLOOD CELL COUNT(AUTO) 5.26 MIL/uL (4.20-6.10); RED CELL DISTRIBUTION WIDTH 13.9 % (11.6-13.7); WHITE BLOOD COUNT (AUTO) 6.8 K/uL (4.8-10.8)
--- NOTE | 2018-08-01 07:15 | NUR ---
REPORT OBTAINED FROM ROTARY DRIER FEEDER NURSE, PT IS RESTING IN BED, AAOX4, NO S/S OF DISTRESS, VSS, STILL C/O NECK PAIN 12/24. TRIED TO INSERTED IV LINE, COULD NOT SUCCESSFUL. DR. RUEDA AND CHARGE NURSE MADE AWARE.
[2018-08-01 07:27] LABS: ANION GAP 12.2 (8-16); CARBON DIOXIDE 27.8 mmol/L (21-32); CREATININE 0.8 mg/dL (0.7-1.3)
[2018-08-01] MEDS ORDERED: IBUPROFEN 800 MG TAB PO ONE (09:05)
[2018-08-01 09:26] VITALS: BP 125/75
--- NOTE | 2018-08-01 09:26 | NUR ---
Patient discharged with v/s stable. Written and verbal after care instructions given and explained. Rx of MOTRIN given. Patient educated on indication of medication including possible reaction and side effects. Opportunity to ask questions provided and answered.ID band removed. Patient advised to follow up with PMD.
== END 2018-08-01 09:26 | disposition home or self-care (01) ==
LOC: MED 03:13
DX: M43.6 Torticollis (principal); I10 Essential (primary) hypertension
CPT/HCPCS: 36415; 80048; 85025; 99283

== ENCOUNTER 2018-08-29 01:10 | Emergency (ER) | payer OTHER ==
[~2018-08-29] VITALS: Ht 182.9 cm; Wt 67.1 kg
[2018-08-29 01:21] VITALS: BP 131/86
--- NOTE | 2018-08-29 01:23 | NUR ---
PT SENT TO LOBBY TO WAIT FOR AVAILABLE BED.
--- NOTE | 2018-08-29 02:21 | NUR ---
DR. NGUYEN BEDSIDE EVALUATING PT
--- NOTE | 2018-08-29 02:22 | NUR ---
52/M PRESENTS TO ED, C/O POSTERIOR NECK PAIN FROM "SLEEPING IN THE COLD WITH NO PILLOW", X2 DAYS. DENIES TRAUMA/INJURY. NO ABNORMALITY, BRUISING OR SWELLING ON SITE NOTED. AOX4, SKIN NORMAL WARM AND DRY, RR EVEN AND UNLABORED. HX HTN
[2018-08-29] MEDS ORDERED: IBUPROFEN 600 MG TAB PO ONE (02:30)
[2018-08-29 03:09] VITALS: BP 138/91
== END 2018-08-29 03:09 | disposition home or self-care (01) ==
LOC: MED 01:10
DX: M54.2 Cervicalgia (principal); J00 Acute nasopharyngitis [common cold]; I10 Essential (primary) hypertension
CPT/HCPCS: 99282

== ENCOUNTER 2018-09-24 09:11 | Emergency (ER) | payer OTHER ==
[~2018-09-24] VITALS: Ht 185.4 cm; Wt 68.0 kg
[2018-09-24 09:15] VITALS: BP 125/79
--- NOTE | 2018-09-24 09:16 | NUR ---
Patient ambulated to bed 4. RN evaluating patient at bedside.
--- NOTE | 2018-09-24 09:22 | NUR ---
C/O RT FOOT PAIN X 2 WEEKS, + CMS, DENIES RECENT INJURY. PT ADMITS TO SUBSTANCE ABUSE. PAIN 2/. PT A/OX 4, NORMAL LUNG SOUNDS, VSS. PT PLACED IN BED AND ER MD TO EVALUATE PT. MED HX: HEP C MEDS: Wellbutrin,Seroquel, Zoloft
[2018-09-24 11:30] VITALS: BP 121/75
== END 2018-09-24 11:25 | disposition home or self-care (01) ==
LOC: MED 09:11
DX: L84 Corns and callosities (principal); F20.9 Schizophrenia, unspecified; Z86.59 Personal history of other mental and behavioral disorders; Z86.19 Personal history of other infectious and parasitic diseases
CPT/HCPCS: 99283

== ENCOUNTER 2018-10-21 13:55 | Emergency (ER) | payer OTHER ==
[~2018-10-21] VITALS: Ht 185.4 cm; Wt 72.6 kg
[2018-10-21 13:59] VITALS: BP 132/99
--- NOTE | 2018-10-21 14:08 | NUR ---
PT AMB TO BED2.
--- NOTE | 2018-10-21 14:08 | NUR ---
BIB SELF. AAO X4 C/O RIGHT FOOT PAIN X 1 MONTH. PT DENIES TRAUMA/INJURY TO SITE. CALLOUSED NOTED TO RIGHT FOOT PLANTAR, NO REDNESS, NO SWELLING NOTED. PT AMBULATED WITH STEADY GAIT. HOB UP. BED SIDE RAILS UP X1. ON LOW BED POSITION, LOCKED. ER TO EVALUATE PT.
--- NOTE | 2018-10-21 14:48 | NUR ---
DR MEIER AT BEDSIDE
[2018-10-21 15:09] VITALS: BP 128/86
--- NOTE | 2018-10-21 15:09 | NUR ---
Patient discharged with v/s stable. Written and verbal after care instructions given and explained. Patient alert, oriented and verbalized understanding of instructions. Ambulatory with steady gait. All questions addressed prior to discharge. ID band removed. Patient advised to follow up with PMD. Rx of MOTRIN given. Patient educated on indication of medication including possible reaction and side effects. Opportunity to ask questions provided and answered. PT SIGNED HOMELESS WAIVER, AND GIVEN HYGIENE PACKET, SOCKS, MEAL, AND RESOURCE PACKET
== END 2018-10-21 15:09 | disposition home or self-care (01) ==
LOC: MERGE 13:55 → MED 13:55
DX: L84 Corns and callosities (principal); M54.2 Cervicalgia; G89.29 Other chronic pain; M54.5 Low back pain; F17.210 Nicotine dependence, cigarettes, uncomplicated; Z90.89 Acquired absence of other organs; Z98.890 Other specified postprocedural states
CPT/HCPCS: 99283

== ENCOUNTER 2018-10-24 02:07 | Emergency (ER) | payer OTHER ==
[~2018-10-24] VITALS: Ht 182.9 cm; Wt 72.6 kg
[2018-10-24 02:07] VITALS: BP 142/90
--- NOTE | 2018-10-24 02:07 | NUR ---
PT BIBA TAKEN TO BED #9
--- NOTE | 2018-10-24 02:10 | NUR ---
PATIENT PRESENTS TO ED WITH NO CC.PT STATES "I JUST WANT FOOD AND A PLACE TO SLEEP." DENIES N/V/D; SKIN IS PINK/WARM/DRY; AAOX4; LUNGS CLEAR BILATERALLY; HR EVEN AND REGULAR;PT DENIES ANY FEVER, CP, SOB, OR COUGH AT THIS TIME; PATIENT STATES PAIN OF 3/10 TO NECK; VSS; PATIENT POSITIONED FOR COMFORT; HOB LOWERED PER PT REQUEST; BEDRAILS UP X1; BED IN LOWEST POSITION. ER MD MADE AWARE OF PT STATUS.
--- NOTE | 2018-10-24 02:15 | NUR ---
FOOD AND DRINK PROVIDED TO PT.
--- NOTE | 2018-10-24 03:21 | NUR ---
PT ASLEEP. VISIBLE CHEST RISE AND FALL NOTED. WILL CONTINUE TO MONITOR.
[2018-10-24 04:25] VITALS: BP 139/86
--- NOTE | 2018-10-24 04:25 | NUR ---
PT ASLEEP. VISIBLE CHEST RISE AND FALL NOTED. VSS. WILL CONTINUE TO MONITOR.
--- NOTE | 2018-10-24 06:08 | NUR ---
PT PROVIDED WITH HOMELESS RESOURCES AND BUS PASS. ALL NEEDS MET AT THIS TIME.
== END 2018-10-24 06:10 | disposition home or self-care (01) ==
LOC: MED 02:07
DX: F41.9 Anxiety disorder, unspecified (principal); F43.9 Reaction to severe stress, unspecified; F12.10 Cannabis abuse, uncomplicated; Z59.0 Homelessness
CPT/HCPCS: 99283

== ENCOUNTER 2018-12-02 23:04 | Emergency (ER) | payer OTHER ==
[~2018-12-02] VITALS: Ht 185.4 cm; Wt 64.9 kg
[2018-12-02 23:09] VITALS: BP 113/74
[2018-12-03 02:00] VITALS: BP 130/83
== END 2018-12-03 02:00 | disposition home or self-care (01) ==
LOC: MED 23:04
DX: R10.84 Generalized abdominal pain (principal); R11.2 Nausea with vomiting, unspecified; R19.7 Diarrhea, unspecified; Z59.0 Homelessness
CPT/HCPCS: 99283

== ENCOUNTER 2018-12-03 16:21 | Emergency (ER) | payer OTHER ==
[~2018-12-03] VITALS: Ht 182.9 cm; Wt 63.5 kg
[2018-12-03 16:57] VITALS: BP 119/86
--- NOTE | 2018-12-03 17:05 | NUR ---
WAIT IN LOBBY
[2018-12-03 20:42] VITALS: BP 106/65
--- NOTE | 2018-12-03 23:30 | NUR ---
PT CALLED, NO ANSWER LWBS
--- NOTE | 2018-12-03 23:35 | NUR ---
PATIENT LEFT WITHOUT BEING SEEN BY DR. FOSTER. NO FURTHER CARE PROVIDED FOR PATIENT.
--- NOTE | 2018-12-04 00:15 | NUR ---
Karyna adams in [facility] - 12/04/18 at 0107 by [email or web address] PATIENT LEFT WITHOUT BEING SEEN BY DR. FOSTER. NO FURTHER CARE PROVIDED FOR PATIENT.
== END 2018-12-03 23:35 | disposition left against medical advice (07) ==
LOC: MED 16:21
DX: M79.671 Pain in right foot (principal); M79.672 Pain in left foot; R06.02 Shortness of breath; Z59.0 Homelessness; Z53.21 Procedure and treatment not carried out due to patient leaving prior to being seen by health care provider

== ENCOUNTER 2019-02-07 14:38 | Emergency (ER) | payer OTHER ==
[~2019-02-07] VITALS: Ht 185.4 cm; Wt 72.6 kg
[2019-02-07 14:47] VITALS: BP 113/87
--- NOTE | 2019-02-07 15:08 | NUR ---
53 Y/O M C/O PAIN IN BOTH FEET 06/24. PATIENT HAS CALUSES ON BOTH FEET. PATIENT HAS TRIED TO REMOVE THE CALUSES, WHICH HAVE CAUSED AN OPEN SORE AND PAIN.
[2019-02-07] MEDS ORDERED: NEOMYCIN/POLYMYXIN/BACITRACIN 0.9 GM/1 PKT TP ONE (15:15)
[2019-02-07 16:13] VITALS: BP 113/87
--- NOTE | 2019-02-07 16:13 | NUR ---
Patient discharged with v/s stable. Written and verbal after care instructions given and explained. Patient alert, oriented and verbalized understanding of instructions. Ambulatory with steady gait. All questions addressed prior to discharge. ID band removed. Patient advised to follow up with PMD. Rx of NEOSPORIN, MOTRIN given. Patient educated on indication of medication including possible reaction and side effects. Opportunity to ask questions provided and answered.
== END 2019-02-07 16:13 | disposition home or self-care (01) ==
LOC: MED 14:38
DX: M79.672 Pain in left foot (principal); M79.671 Pain in right foot; X58.XXXA Exposure to other specified factors, initial encounter; Y93.89 Activity, other specified; Y92.89 Other specified places as the place of occurrence of the external cause; Y99.8 Other external cause status
CPT/HCPCS: 99282

== ENCOUNTER 2019-03-21 15:59 | Emergency (ER) | payer OTHER ==
--- NOTE | 2019-03-21 16:43 | NUR ---
PT REQUESTED JUICES AND LEFT
== END 2019-03-21 16:46 | disposition left against medical advice (07) ==
LOC: MED 15:59
DX: M79.673 Pain in unspecified foot (principal); Z53.21 Procedure and treatment not carried out due to patient leaving prior to being seen by health care provider

== ENCOUNTER 2019-03-25 16:27 | Emergency (ER) | payer OTHER ==
[~2019-03-25] VITALS: Ht 182.9 cm; Wt 81.6 kg
--- NOTE | 2019-03-25 16:46 | NUR ---
TRIAGE COMPLETE. VSS. RETURNED TO LOBBY TO WAIT FOR BED IN ED.
--- NOTE | 2019-03-25 17:47 | NUR ---
53/M C/O RHINORRHEA AND NASAL CONGESTION X 1 WK. STATES DIFF BREATHING THROUGH NOSE 2/2 CONGESTION. HX- DENIES
--- NOTE | 2019-03-25 19:00 | NUR ---
REPORT TO THEE WATTS, TRANSFER OF CARE AT THIS TIME.
--- NOTE | 2019-03-25 20:10 | NUR ---
FLU SWAB OBTAINED. HANDED TO BUHR MILL OPERATOR.
--- NOTE | 2019-03-26 01:51 | NUR ---
PT AMBULATED TO BED 5.
--- NOTE | 2019-03-26 01:53 | NUR ---
PT C/O NASAL CONGESTION AND BILATERAL SORE FEET X 2 WEEKS. PT STATES HE IS HAVING A DIFFICULTY TIME AMBULATING.
--- NOTE | 2019-03-26 01:54 | NUR ---
DR MAGALLANES AT BEDSIDE EXAMINING PT.
--- NOTE | 2019-03-26 02:27 | NUR ---
PT RESTING WITH EYES CLOSED, VISIBLE RISE AND FALL OF THE CHEST. RR EVEN AND UNLABORED. BED LOCKED AND IN LOW POSITION. X 1 SIDE RAIL RAISED. WILL CONTINUE TO MONITOR.
--- NOTE | 2019-03-26 04:01 | NUR ---
VISIBLE RISE AND FALL OF THE CHEST. PT AROUSABLE TO NAME. X1 SIDE RAIL RAISED. VSS. WILL CONTINUE TO MONITOR.
--- NOTE | 2019-03-26 05:05 | NUR ---
Patient discharged with v/s stable. Written and verbal after care instructions given and explained. Patient alert, oriented and verbalized understanding of instructions. Ambulatory with steady gait. All questions addressed prior to discharge. ID band removed. Patient advised to follow up with PMD. Rx of FLONASE AND MOTRIN given. Patient educated on indication of medication including possible reaction and side effects. Opportunity to ask questions provided and answered.
== END 2019-03-26 05:05 | disposition home or self-care (01) ==
LOC: MED 16:27
DX: J30.2 Other seasonal allergic rhinitis (principal); M79.671 Pain in right foot; M79.672 Pain in left foot
CPT/HCPCS: 87804; 99283

== ENCOUNTER 2019-04-26 02:08 | Emergency (ER) | payer OTHER ==
[~2019-04-26] VITALS: Ht 185.4 cm; Wt 70.3 kg
[2019-04-26 02:20] VITALS: BP 146/99
--- NOTE | 2019-04-26 02:25 | NUR ---
PT BROUGHT TO ROOM 8
--- NOTE | 2019-04-26 02:30 | NUR ---
PT C/O TOE PAIN; CMS INTACT; TOE CONTRACTED; HAS SCAB WHITE AND GREEN IN COLOR. DENIES NUMBNESS/TINGLING OF THE FOOT AND TOES. PAIN IS 5/10 IN THE TOE AND WORSENED WHEN THE SHOE IS ON. VSS. DENIES MED HX.
[2019-04-26] MEDS ORDERED: KETOROLAC 60 MG/2 ML VIAL IM ONE (02:31)
--- NOTE | 2019-04-26 02:32 | NUR ---
DR LACKEY IN ROOM WITH PT
[2019-04-26] MEDS: KETOROLAC 60 MG/2 ML VIAL IM ONE (02:57)
--- NOTE | 2019-04-26 03:08 | NUR ---
Patient discharged with v/s stable. Written and verbal after care instructions given and explained. Patient alert, oriented and verbalized understanding of instructions. Ambulatory with steady gait. All questions addressed prior to discharge. ID band removed. Patient advised to follow up with PMD. Rx of Keflex, Motrin given. Patient educated on indication of medication including possible reaction and side effects. Opportunity to ask questions provided and answered. Patient discharged to street, discharged with homeless packet, declined retirement, provided with food, clothes, and bus pass.
[2019-04-26 03:12] VITALS: BP 146/99
== END 2019-04-26 03:05 | disposition home or self-care (01) ==
LOC: MED 02:08
DX: L03.031 Cellulitis of right toe (principal); F17.210 Nicotine dependence, cigarettes, uncomplicated; Z90.49 Acquired absence of other specified parts of digestive tract; Z98.890 Other specified postprocedural states
CPT/HCPCS: 96372; 99283; J1885

== ENCOUNTER 2019-05-02 18:53 | Emergency (ER) | payer OTHER ==
[~2019-05-02] VITALS: Ht 185.4 cm; Wt 70.3 kg
[2019-05-02 19:18] VITALS: BP 153/105
[2019-05-02 20:34] VITALS: BP 153/105
--- NOTE | 2019-05-02 20:34 | NUR ---
PT CALLED FROM LOBBY, NO RESPONSE, LWBS
--- NOTE | 2019-05-02 20:34 | NUR ---
PATIENT LEFT WITHOUT BEING SEEN BY DR. GERMAN. NO FURTHER CARE PROVIDED FOR PATIENT.
== END 2019-05-02 20:34 | disposition left against medical advice (07) ==
LOC: MED 18:53
DX: M79.671 Pain in right foot (principal); Z53.21 Procedure and treatment not carried out due to patient leaving prior to being seen by health care provider

== ENCOUNTER 2019-06-11 00:39 | Emergency (ER) | payer OTHER ==
[~2019-06-11] VITALS: Ht 185.4 cm; Wt 72.6 kg
[2019-06-11 00:58] VITALS: BP 137/96
[2019-06-11] MEDS ORDERED: ACETAMINOPHEN 325 MG TAB PO ONE (01:10)
[2019-06-11] MEDS ORDERED: IBUPROFEN 400 MG TAB PO ONE (01:10)
[2019-06-11 01:15] VITALS: BP 137/96
== END 2019-06-11 01:15 | disposition home or self-care (01) ==
LOC: MED 00:39
DX: L84 Corns and callosities (principal); R03.0 Elevated blood-pressure reading, without diagnosis of hypertension; Z90.89 Acquired absence of other organs
CPT/HCPCS: 99283

== ENCOUNTER 2019-06-12 05:27 | Emergency (ER) | payer OTHER ==
[~2019-06-12] VITALS: Ht 185.4 cm; Wt 72.6 kg
[2019-06-12 05:27] VITALS: BP 138/98
--- NOTE | 2019-06-12 05:27 | NUR ---
PT TAKEN TO CHAIR B.
--- NOTE | 2019-06-12 05:35 | NUR ---
PT ASSESSED BY DR. GERMAN. NO NURSING CARE PROVIDED FOR PT.
== END 2019-06-12 05:39 | disposition home or self-care (01) ==
LOC: MED 05:27
DX: M21.611 Bunion of right foot (principal)
CPT/HCPCS: 81002; 99281; 99282

== ENCOUNTER 2019-06-18 03:30 | Emergency (ER) | payer OTHER ==
[~2019-06-18] VITALS: Ht 185.4 cm; Wt 72.6 kg
--- NOTE | 2019-06-18 03:35 | NUR ---
AMBULATORY WITH STEADY GAIT TO CHAIR B
[2019-06-18 03:39] VITALS: BP 158/97
--- NOTE | 2019-06-18 03:42 | NUR ---
53 Y/O MALE C/O RIGHT NECK PAIN THAT IS NON-RADIATING WITH PAIN 4/10 FROM SLEEPING WRONG. PT DENIES ANY TRAUMA. PT DENIES ANY CP/SOB. AIRWAY PATENT, NO SWALLOWING ISSUES, NO DIFFICULTY BREATHING. + NAUSUEA. DENIES V/D; SKIN IS PINK/WARM/DRY; AAOX4 WITH EVEN AND STEADY GAIT; PT DENIES ANY FEVER, OR COUGH AT THIS TIME; VSS; PT SITTING IN CHAIR; MEDICAL HX: TB/HEP A/DM NKA
--- NOTE | 2019-06-18 03:45 | NUR ---
EXAMINING PT IN CHAIR
[2019-06-18] MEDS ORDERED: KETOROLAC 60 MG/2 ML VIAL IM ONE (03:50)
[2019-06-18 04:13] VITALS: BP 158/97
--- NOTE | 2019-06-18 04:13 | NUR ---
Patient discharged with v/s stable. Written and verbal after care instructions given and explained. Patient alert, oriented and verbalized understanding of instructions. Ambulatory with steady gait. All questions addressed prior to discharge. ID band removed. Patient advised to follow up with PMD. Rx of MOTRIN given. Patient educated on indication of medication including possible reaction and side effects. Opportunity to ask questions provided and answered.PROVIDED PT WITH HOMELESS RESOURCE PACKET/WEATHER APPROPRIATE CLOTHING/MEAL PACKET .
== END 2019-06-18 04:13 | disposition home or self-care (01) ==
LOC: MED 03:40
DX: M54.2 Cervicalgia (principal); F17.210 Nicotine dependence, cigarettes, uncomplicated
CPT/HCPCS: 96372; 99283; J1885

== ENCOUNTER 2019-07-11 20:07 | Inpatient (IN) | payer OTHER ==
[~2019-07-11] VITALS: Ht 185.4 cm; Wt 72.6 kg
[2019-07-11 20:17] VITALS: BP 122/83
--- NOTE | 2019-07-11 20:25 | NUR ---
PT TAKEN TO BED 1 VIA WHEELCHAIR
--- NOTE | 2019-07-11 20:32 | NUR ---
PT PLACED ON PULSE OX AND 3 LEAD ECG.
--- NOTE | 2019-07-11 20:35 | NUR ---
AT [facility] EXAMINING PT Addendum: 07/11/19 at 2054 by [email or web address] * AT [facility] EXAMINING PT
--- NOTE | 2019-07-11 20:40 | NUR ---
53 Y/O MALE C/O LEFT BIG TOE FOOT PAIN 12/24. PT STATES HE HIT HIS TOE MULTIPLE TIMES AND WAS REALLY HARD TO WALK ABOUT AN HOUR AGO. DENIES N/V/D; SKIN IS PINK/WARM/DRY; AAOX4; GAIT UNSTEADY DUE TO LEFT BIG TOE PAIN ; HR 126; RR EVEN AND UNLABORED; PT DENIES ANY FEVER, CP, SOB, OR COUGH AT THIS TIME; PATIENT POSITIONED FOR COMFORT; HOB ELEVATED; BEDRAILS UP X1; BED DOWN AMD LOCKED. ER MD MADE AWARE OF PT STATUS. MEDICAL HX: APPENDECTOMY NKA
--- NOTE | 2019-07-11 21:17 | NUR ---
EKG PERFORMED AT BEDSIDE
--- NOTE | 2019-07-11 21:19 | NUR ---
EMT AT BEDSIDE DOING EKG
[2019-07-11 21:24] LABS: ACETAMINOPHEN < 0.5 ug/ml (10-30); SALICYLATE < 2.8 mg/dL (2.8-20.0)
[2019-07-11] MEDS ORDERED: NACL 0.9% 1,000 ML IV ONE (21:25)
[2019-07-11 21:26] LABS: ALBUMIN 5.3 g/dL (3.4-5.0); CARBON DIOXIDE 17.7 mmol/L (21-32); POTASSIUM 5.7 mmol/L (3.5-5.1); TOTAL BILIRUBIN 0.8 mg/dL (0.0-1.0)
[2019-07-11 21:27] LABS: PROTHROMBIN TIME 10.8 secs (10.8-13.4)
[2019-07-11 21:29] LABS: CREATININE 4.4 mg/dL (0.6-1.3)
[2019-07-11] MEDS ORDERED: INSULIN REGULAR, HUMAN 100 UNIT/ML VIAL IVP ONE (21:35)
[2019-07-11] MEDS ORDERED: SODIUM ZIRCONIUM CYCLOSILICATE 10 GM POWD.PACK PO ONE (21:35)
[2019-07-11] MEDS ORDERED: DEXTROSE 50% 50 ML SYR IVP ONE (21:35)
[2019-07-11] MEDS ORDERED: CALCIUM GLUCONATE 10% 1000 MG/10 ML VIAL IVP ONE (21:35)
[2019-07-11 21:50] LABS: BASOPHILS # (AUTO) 0.1 K/uL (0.00-0.22); BASOPHILS % (AUTO) 1.5 % (0.0-2.0); HEMATOCRIT 53.3 % (36-52); HEMOGLOBIN 17.4 g/dL (12.0-18.0); LYMPHOCYTES # (AUTO) 1.7 K/uL (2.0-11.5); MEAN CORPUSCULAR HEMOGLOBIN 28 pg (27-31); MEAN CORPUSCULAR HGB CONC 33 g/dL (33-37); MEAN CORPUSCULAR VOLUME 86.5 fL (80-94); MONOCYTES # (AUTO) 0.5 K/uL (0.8-1.0); MONOCYTES % (AUTO) 5.5 % (1.7-9.3); NEUTROPHILS # (AUTO) 7.5 K/uL (1.8-7.7); PLATELET COUNT (AUTO) 326 K/uL (140-450); RED BLOOD CELL COUNT(AUTO) 6.16 MIL/uL (4.20-6.10); RED CELL DISTRIBUTION WIDTH 14.4 % (11.6-13.7); WHITE BLOOD COUNT (AUTO) 9.9 K/uL (4.8-10.8)
[2019-07-11 21:51] LABS: APPEARANCE,URINE CLEAR (CLEAR); BILIRUBIN,URINE 2+ (NEGATIVE); BLOOD, URINE NEGATIVE (NEGATIVE); LEUKOCYTE ESTERASE ,URINE NEGATIVE (NEGATIVE); NITRITE, URINE NEGATIVE (NEGATIVE); UGLUCOSE NEGATIVE (NEGATIVE)
[2019-07-11 21:53] LABS: COLOR,URINE AMBER (YELLOW)
[2019-07-11] MEDS ORDERED: CLINDAMYCIN 900 MG in DEXTROSE 5% 100 ML IV ONE (22:15)
[2019-07-11] MEDS ORDERED: CLINDAMYCIN 900 MG/6 ML VIAL IV ONE (22:27)
--- NOTE | 2019-07-11 23:00 | NUR ---
PT RESTING IN BED, BED LOW AND LOCKED, 2 SIDERAILS UP, GAVE PT WATER PER REQUEST. WILL CONTINUE TO MONITOR.
[2019-07-12] MEDS ORDERED: LORazepam 1 MG TAB PO PRN (00:25)
[2019-07-12] MEDS ORDERED: PROMETHAZINE 25 MG/ML VIAL IVP PRN (00:25)
[2019-07-12] MEDS ORDERED: ACETAMINOPHEN 325 MG TAB PO PRN (00:25)
[2019-07-12] MEDS ORDERED: ZOLPIDEM 5 MG TAB PO PRN (00:25)
[2019-07-12] MEDS: NACL 0.9% 1,000 ML IV SCH ×2 (00:44→09:00)
--- NOTE | 2019-07-12 00:56 | NUR ---
PT ASLEEP IN BED IN POSITION OF COMFORT, BED LOW AND LOCKED, VSS. 2 SIDERAILS UP, WILL CONTINUE TO MONITOR.
--- NOTE | 2019-07-12 01:30 | NUR ---
PT AWAKE AND RESTING IN BED, VSS, BED LOW AND LOCKED, 2 SIDERAILS UP, WILL CONTINUE TO MONITOR.
[2019-07-12 01:37] LABS: BENZODIAZEPINE, URINE NEGATIVE ng/mL (NEG <=200); CANNABINOID, URINE POSITIVE ng/mL (NEG <=50); COCAINE, URINE NEGATIVE ng/mL (NEG <=300)
[2019-07-12 01:38] LABS: BARBITURATE, URINE NEGATIVE ng/ml (NEG <=200); OPIATE, URINE NEGATIVE ng/mL (NEG <=2000); PHENCYCLIDINE SCREEN,URINE NEGATIVE ng/mL (NEG <=25)
--- NOTE | 2019-07-12 03:46 | NUR ---
PT MOVED TO BED 4 VIA SANDOVAL, AWAKE, RESTING, CALM, COOPERATIVE, VSS, BED LOW AND LOCKED, 2 SIDERAILS UP, WILL CONTINUE TO MONITOR.
--- NOTE | 2019-07-12 05:22 | NUR ---
PT ASLEEP IN BED IN POSITION OF COMFORT, VSS, BED LOW AND LOCKED, 2 SIDERAILS UP, WILL CONTINUE TO MONITOR .
[2019-07-12 07:09] LABS: BASOPHILS # (AUTO) 0.1 K/uL (0.00-0.22); BASOPHILS % (AUTO) 0.5 % (0.0-2.0); HEMATOCRIT 44.1 % (36-52); HEMOGLOBIN 14.2 g/dL (12.0-18.0); LYMPHOCYTES # (AUTO) 3.6 K/uL (2.0-11.5); LYMPHOCYTES % (AUTO) 24.4 % (20.5-51.1); MEAN CORPUSCULAR HEMOGLOBIN 28 pg (27-31); MEAN CORPUSCULAR HGB CONC 32 g/dL (33-37); MEAN CORPUSCULAR VOLUME 86.8 fL (80-94); MONOCYTES # (AUTO) 1.3 K/uL (0.8-1.0); MONOCYTES % (AUTO) 8.9 % (1.7-9.3); NEUTROPHILS # (AUTO) 9.7 K/uL (1.8-7.7); NEUTROPHILS % (AUTO) 66.2 % (42.2-75.2); PLATELET COUNT (AUTO) 257 K/uL (140-450); RED BLOOD CELL COUNT(AUTO) 5.08 MIL/uL (4.20-6.10); RED CELL DISTRIBUTION WIDTH 14.4 % (11.6-13.7); WHITE BLOOD COUNT (AUTO) 14.6 K/uL (4.8-10.8)
--- NOTE | 2019-07-12 07:25 | NUR ---
Patient will be admitted to care of DR. RAI. Admited to TELE. Will go to room 105B . Belongings list completed. Report GIVEN TO STEFANIE ISBELL , WHO ASSUMED CARE OF PT AT THIS TIME.
--- NOTE | 2019-07-12 07:25 | NUR ---
PT CAME TO UNIT [facility]IA [facility] ACCOMPANIED BY ER NURSE [place]. PT AMBULATED FROM [place] TO BED. PT WAS SLIGHTLY LIMPING ON HIS LEFT LEG WHEN WALKING. SKIN INTACT. PT IS RESPONSIVE AND COOPERATIVE. NOTED WITH BILATERAL TOES DEFORMITIES. PT SAYS HIS LEFT TOE HURTS WHEN TOUCHED WITH A PAIN SCALE OF 5/10. PT IS HOMELESS. ADMISSION ASSESSMENT DONE. SAFETY MEASURERS IN PLACE. CALL LIGHT IN REACH.
[2019-07-12 08:00] VITALS: BP 119/74
--- NOTE | 2019-07-12 09:00 | NUR ---
PT IS SITTING IN BED. PT HAD BREAKFAST. NO DISTRESS NOTED. PT SAYS HIS TOE HURTS WHEN TOUCHED. SAFETY MEASURES IN PLACE. WILL CONTINUE TO MONITOR. CALL LIGHT IN REACH.
--- NOTE | 2019-07-12 09:52 | NUR ---
PATIENT HAS BEEN SCREENED AND CATEGORIZED LOW NUTRITION RISK. PATIENT WILL BE SEEN WITHIN 7 DAYS OF ADMISSION. 07/18/[address]
[2019-07-12 10:49] LABS: ANION GAP 22.9 (8-16); CARBON DIOXIDE 13.2 mmol/L (21-32); CREATININE 2.6 mg/dL (0.6-1.3); POTASSIUM 4.1 mmol/L (3.5-5.1)
[2019-07-12 12:00] VITALS: BP 98/65
--- NOTE | 2019-07-12 12:00 | NUR ---
PT IS SITTING IN BED. PT IS HAVING LUNCH AT THIS TIME. NO DISTRESS NOTED. SAFETY MEASURES IN PLACE. WILL CONTINUE TO MONITOR. CALL LIGHT IN REACH.
[2019-07-12] MEDS: SODIUM BICARBONATE 8.4% 100 MEQ in NACL 0.45% 1,000 ML IV SCH (13:20)
--- NOTE | 2019-07-12 14:06 | NUR ---
Spool Cleaner Hand Note: SW attempted to complete assessment with patient at bedside but patient refused.
--- NOTE | 2019-07-12 14:20 | NUR ---
PT IS SLEEPING IN BED. RESPONSIVE TO VERBAL STIMULI. NO DISTRESS NOTED. SAFETY MEASURES IN PLACE. WILL CONTINUE TO MONITOR. CALL LIGHT IN REACH.
[2019-07-12 16:00] VITALS: BP 108/60
--- NOTE | 2019-07-12 17:07 | NUR ---
PT WAS ORDERED POST OP SHOES. PT REFUSED TO WEAR IT. PT SAYS HIS TOE NAIL IS FALLING OFF AND WANTS THE SHOE REMOVED. WILL CONTINUE TO MONITOR. CALL LIGHT IN REACH.
--- NOTE | 2019-07-12 19:20 | NUR ---
SHIFT REPORT GIVEN TO PROPERTY ANALYST NURSE FOR CONTINUATION OF CARE. PT IS IN STABLE CONDITION. CALL LIGHT IN REACH.
--- NOTE | 2019-07-12 19:21 | NUR ---
RECEIVED FROM STEFANIE ISBELL AM SHIFT FOR CONTINUITY OF CARE. TELE MONITORING. PT IS HOMELESS. PT AWAKE, ALERT O X 4. AMBULATORY W/ LIMPING GAIT LEFT FOOT DUE TO LEFT TOE FRACTURE AND DISLOCATION (OLD ONE). PT REFUSED TO WEAR BOOT, INFORMED HIM RISKS AND BENEFITS. SKIN INTACT. PT IS RESPONSIVE AND COOPERATIVE. NOTED WITH BILATERAL TOES DEFORMITIES. PT STATES HIS LEFT TOE HURTS WHEN TOUCHED WITH A PAIN SCALE OF 5/10. SAFETY MEASURERS IN PLACE. CALL LIGHT IN REACH.
[2019-07-12 20:00] VITALS: BP 121/73
--- NOTE | 2019-07-12 22:00 | NUR ---
PT WENT TO BATHROOM, AMBULATORY WITH LEFT FOOT LIMPING BUT STEADY GAIT. STANDBY ASSIST. VOIDED ONE TIME.
[2019-07-13] VITALS: BP 101/64
[2019-07-13] MEDS ORDERED: SODIUM BICARBONATE 8.4% 50 MEQ/50 ML VIAL ONE (00:15)
[2019-07-13] MEDS: SODIUM BICARBONATE 8.4% 100 MEQ in NACL 0.45% 1,000 ML IV SCH (00:25)
--- NOTE | 2019-07-13 01:19 | NUR ---
CHECKED ON PATIENT SLEEPING NO COMPLAINTS FOR NOW
--- NOTE | 2019-07-13 02:12 | NUR ---
CHECKED PATIENT, SLEEPING. TALKED TO ME FOR A WHILE AND WENT BACK TO SLEEP
--- NOTE | 2019-07-13 03:50 | NUR ---
PT SLEEPING EASILY AWAKENED, HE SAID HE IS WORRIED ABOUT HIS KIDNEYS. HEALTH EDUCATION GIVEN
[2019-07-13 04:00] VITALS: BP 122/95
--- NOTE | 2019-07-13 06:52 | NUR ---
PT AWAKE NOW, SSTILL ON BED. NO SIGNS OF RESPIRATORY DISTRESS, WILL ENDORSE TO NEXT SHIFT. PT STABLE AT THIS TIME.
--- NOTE | 2019-07-13 07:20 | NUR ---
RECEIVED FROM BUSHING AND BROACH OPERATOR NURSE KAREN, FOR CONTINUITY OF CARE. TELE MONITORING. PT IS HOMELESS. PT IS AWAKE AND IN BED, AAOX4. AMBULATORY W/ LIMPING GAIT LEFT FOOT DUE TO LEFT TOE FRACTURE AND CHRONIC DISLOCATION. PT REFUSED TO WEAR BOOT, INFORMED HIM RISKS AND BENEFITS. SKIN INTACT. PT IS RESPONSIVE AND COOPERATIVE. NOTED WITH BILATERAL TOES DEFORMITIES. PT STATES HIS LEFT TOE HURTS WHEN TOUCHED BUT REFUSES MEDICATION FOR NOW. IV ON THE LEFT AC 20G WITH SODIUM BICARBONATE RUNNING AT 100ML/HR. PT. IS ON ROOM AIR WITH O2 STAT OF 97%. NO SIGNS OF DISTRESS. FALL PRECAUTIONS IN PLACE. PLAN OF CARE REVIEWED. CALL LIGHT IN REACH. WILL CONTINUE TO MONITOR.
[2019-07-13 07:50] LABS: BASOPHILS # (AUTO) 0.1 K/uL (0.00-0.22); BASOPHILS % (AUTO) 1.2 % (0.0-2.0); EOSINOPHILS # (AUTO) 0.1 K/uL (0-0.4); EOSINOPHILS % (AUTO) 1.6 % (0.0-4.0); HEMATOCRIT 42.9 % (36-52); LYMPHOCYTES # (AUTO) 2.4 K/uL (2.0-11.5); LYMPHOCYTES % (AUTO) 37.1 % (20.5-51.1); MEAN CORPUSCULAR HEMOGLOBIN 28 pg (27-31); MEAN CORPUSCULAR HGB CONC 33 g/dL (33-37); MEAN CORPUSCULAR VOLUME 86.9 fL (80-94); MONOCYTES # (AUTO) 0.6 K/uL (0.8-1.0); MONOCYTES % (AUTO) 9.4 % (1.7-9.3); NEUTROPHILS # (AUTO) 3.2 K/uL (1.8-7.7); NEUTROPHILS % (AUTO) 50.7 % (42.2-75.2); PLATELET COUNT (AUTO) 218 K/uL (140-450); RED BLOOD CELL COUNT(AUTO) 4.93 MIL/uL (4.20-6.10); RED CELL DISTRIBUTION WIDTH 14.2 % (11.6-13.7); WHITE BLOOD COUNT (AUTO) 6.4 K/uL (4.8-10.8)
[2019-07-13 08:00] VITALS: BP 124/68
[2019-07-13 08:15] LABS: ALBUMIN 3.2 g/dL (3.4-5.0); CARBON DIOXIDE 24.3 mmol/L (21-32); CREATININE 0.9 mg/dL (0.6-1.3); PHOSPHORUS 2.1 mg/dL (2.5-4.9); POTASSIUM 4.3 mmol/L (3.5-5.1); TOTAL BILIRUBIN 1.1 mg/dL (0.0-1.0)
--- NOTE | 2019-07-13 10:00 | NUR ---
PT. IS ASLEEP AND IN BED. NO SIGNS OF DISTRESS NOTED. WILL CONTINUE TO MONITOR.
--- NOTE | 2019-07-13 11:30 | NUR ---
DR. PEREZ IS BY THE BEDSIDE. NEW ORDERS FOR DISCHARGE GIVEN TO PT. WILL FOLLOW THROUGH.
[2019-07-13 12:00] VITALS: BP 122/75
[2019-07-13 12:04] LABS: CREATINE KINASE MB 12.1 ng/mL (0-3.6)
[2019-07-13] MEDS ORDERED: ACET-2619 PO (12:06)
--- NOTE | 2019-07-13 12:30 | NUR ---
INFORMED PT. ABOUT DISCHARGE. PT. DISAGREES WITH THE DISCHARGE AND CLAIMS HE WON'T BE ABLE TO WALK D/T HIS FRACTURED TOE. WILL CONSULT SOCIAL SERVICE AND CHARGE NURSE.
--- NOTE | 2019-07-13 13:20 | NUR ---
SPOKE TO SOCIAL SERVICE. HOMELESS RESOURCES SUGGESTED TO PT. PT. RECEIVES THEM. PT. AGREES TO BE DISCHARGED. WILL CONTINUE TO MONITOR.
[2019-07-13 13:42] VITALS: BP 122/75
--- NOTE | 2019-07-13 14:45 | NUR ---
DISCHARGED PT. WITH BUS PASS AND LUNCH PACK. NO SIGNS OF DISTRESS NOTED. DISCHARGE INSTRUCTIONS AND PAPERWORKS SIGNED AND GIVEN. ARMBANDS AND IV SITE REMOVED.
--- NOTE | 2019-07-14 16:16 | NUR ---
PCP Appointment: SPIKE contacted Dr. Erica Cruz's office and spoke to Cherrie to schedule hospital follow up. Cherrie stated she would contact patient and notify patient of appointment for 08/10/2019 @ 1600. No further needs identified.
== END 2019-07-13 14:59 | disposition home or self-care (01) | DRG 342 ==
LOC: MED 20:07 → MTU 23:34
PROVIDERS: ADMIT Internal Medicine Pulmonary Disease; ATTEND Internal Medicine Pulmonary Disease
DX: S92.422A Displaced fracture of distal phalanx of left great toe, initial encounter for closed fracture (principal); N17.9 Acute kidney failure, unspecified; E87.2 Acidosis; E87.5 Hyperkalemia; N18.9 Chronic kidney disease, unspecified; F15.10 Other stimulant abuse, uncomplicated; E11.9 Type 2 diabetes mellitus without complications; F17.210 Nicotine dependence, cigarettes, uncomplicated; F12.90 Cannabis use, unspecified, uncomplicated; X58.XXXA Exposure to other specified factors, initial encounter; B19.20 Unspecified viral hepatitis C without hepatic coma; M20.5X2 Other deformities of toe(s) (acquired), left foot; M20.5X1 Other deformities of toe(s) (acquired), right foot; Z87.442 Personal history of urinary calculi; Z82.49 Family history of ischemic heart disease and other diseases of the circulatory system; Z90.49 Acquired absence of other specified parts of digestive tract; Z59.0 Homelessness; Y93.89 Activity, other specified; Y92.89 Other specified places as the place of occurrence of the external cause; Y99.8 Other external cause status
CPT/HCPCS: 36415; 36600; 71045; 73660; 80048; 80053; 80305; 81003; 82550; 82553; 82803; 83036; 83605; 83735; 83880; 84100; 84484; 85025; 85610; 85730; 86803; 87040; 87081; 93005; 93976; 96361; 96365; 96375; 99285; G0480; G0482; J0610; J1815; J3490; J7030; Q0092

== ENCOUNTER 2019-07-22 02:57 | Emergency (ER) | payer OTHER ==
[~2019-07-22] VITALS: Ht 185.4 cm; Wt 68.5 kg
[~2019-07-22 02:57] MED LIST changes: +ACET-2619 PO; -ATIVAN1 MG PO; -CLINDAMYCIN150 M1 PO; -FOLATE1 MG PO; -LACTINEX1 TAB.CHEW PO; -VITAMIN B1100 MG/ML PO
[2019-07-22 03:01] VITALS: BP 122/84
--- NOTE | 2019-07-22 03:02 | NUR ---
PT TAKEN TO BED 4
--- NOTE | 2019-07-22 03:09 | NUR ---
Karyna adams in [facility] - 07/22/19 at [address] Rodriguez examining patient.
--- NOTE | 2019-07-22 03:14 | NUR ---
Dr. Rodriguez examining patient.
--- NOTE | 2019-07-22 03:14 | NUR ---
53 Y/O MALE PRESENTS TO ER WITH C/O RIGHT FOOT PAIN X A FEW WEEKS 09/23. APPEARS TO BE A CALLUS BETWEEN THE THIRD, AND FOURTH TOE. PT STATES HE BELIEVES THE CALLUS IS LEAKING FLUID. NO LEAKAGE OF FLUID NOTED. PER ERMD, PT HAS BEEN SEEN BEFORE AND HAD A F/U WITH PODIATRY. UNSURE IF PT WAS A NO SHOW TO APPT. . C/O SOB, COUGH, FEVER, AND NAUSEA. R/R EQUAL AND UNLABORED, NO COUGH NOTED, VSS. SIDE RAIL X1, BED IN LOW POSITION, WILL CONTINUE TO MONITOR. NKDA PMH: TUBERCULOSIS; HEP A
--- NOTE | 2019-07-22 03:35 | NUR ---
Patient given written and verbal discharge instructions and verbalizes understanding. Given copies of tests performed during visit. Patient is awake, alert and oriented. Ambulatory with steady gait. Refuses offer of retirement placement. PT GIVEN SANDWICH, AND CLOTHING APPROPRIATE FOR WEATHER. Given list of available shelters in surrounding areas.
[2019-07-22 03:41] VITALS: BP 122/84
== END 2019-07-22 03:35 | disposition home or self-care (01) ==
LOC: MED 02:57
DX: L84 Corns and callosities (principal); G89.29 Other chronic pain; Z79.899 Other long term (current) drug therapy
CPT/HCPCS: 99281

== ENCOUNTER 2019-08-06 09:20 | Emergency (ER) | payer OTHER ==
[~2019-08-06] VITALS: Ht 182.9 cm; Wt 72.6 kg
--- NOTE | 2019-08-06 09:22 | NUR ---
AMBULATED TO ER BED 7
[2019-08-06 09:28] VITALS: BP 136/105
--- NOTE | 2019-08-06 09:30 | NUR ---
dr cruz at bedside evalauting pt.
--- NOTE | 2019-08-06 09:32 | NUR ---
c/o "stinging" pain to right foot x 1 wk---denies injury ambulatory with steady gait . Pt awake, alert, afibrile , no limitation of rom in rt foot .no open wound noted . hx--htn, hep c, schizophrenia, bipolar, depression rx--wellbutrin, zoloft, seroquel
--- NOTE | 2019-08-06 09:36 | NUR ---
emt harshil at bedside applying orthor shoes and a samantha wrap.
--- NOTE | 2019-08-06 09:37 | NUR ---
Applied samantha wrap and mens medium ortho shoe to patients left foot. PMSC's assessed and within normal limits, patient tolerated samantha wrap well.
[2019-08-06 09:41] VITALS: BP 136/90
== END 2019-08-06 09:41 | disposition home or self-care (01) ==
LOC: MED 09:20
DX: M79.672 Pain in left foot (principal); M79.671 Pain in right foot
CPT/HCPCS: 99282

== ENCOUNTER 2019-08-10 23:42 | Emergency (ER) | payer OTHER ==
[~2019-08-10] VITALS: Ht 185.4 cm; Wt 72.6 kg
[2019-08-10 23:48] VITALS: BP 155/93
--- NOTE | 2019-08-10 23:48 | NUR ---
53/M presents ambulatory to ED for L foot wound recheck. Pt with multiple visits to ED for similar complaint. L foot, +CMS. Pt awake and alert, skin normal color warm and dry, rr even and unlabored.
--- NOTE | 2019-08-11 00:10 | NUR ---
PT L FOOT WRAPPED WITH ROLLER BANDAGE
--- NOTE | 2019-08-11 00:15 | NUR ---
ADVISED MD OF PT'S BLOOD PRESSURE UPON DISCHARGE, NO FURTHER ORDERS GIVEN.
--- NOTE | 2019-08-11 00:15 | NUR ---
PT GIVEN GAUZE WRAP TO TAKE HOME FOR CONTINUED DRESSING CHANGES
[2019-08-11 00:19] VITALS: BP 147/103
--- NOTE | 2019-08-11 00:19 | NUR ---
Patient discharged with v/s stable. Written and verbal after care instructions given and explained. Patient verbalized understanding. Ambulatory with steady gait. All questions addressed prior to discharge. Advised to follow up with PMD IN 3 DAYS.
== END 2019-08-11 00:19 | disposition home or self-care (01) ==
LOC: MED 23:43
DX: G89.29 Other chronic pain (principal); M79.675 Pain in left toe(s); F17.210 Nicotine dependence, cigarettes, uncomplicated; Z48.00 Encounter for change or removal of nonsurgical wound dressing
CPT/HCPCS: 99281

== ENCOUNTER 2019-08-21 04:06 | Emergency (ER) | payer OTHER ==
[~2019-08-21] VITALS: Ht 185.4 cm; Wt 69.9 kg
[2019-08-21 04:16] VITALS: BP 130/93
--- NOTE | 2019-08-21 04:18 | NUR ---
PT AMBULATED TO BED #11
--- NOTE | 2019-08-21 04:20 | NUR ---
PT 53 Y/O MALE PRESENTS TO ED WITH C/O R FOOT PAIN 5/10 X 2 MONTHS. PT STATES, "IT FEEL LIKE IT'S THROBBING ALL THE TIME." SKIN IN FOOT IS INTACT. PT NOTED WITH POOR FOOT HYEGINE. PT DENIES N/V/D. AFEBRILE. DENIES COUGH OR SOB. AAOX4, VSS; PATIENT POSITIONED FOR COMFORT; HOB ELEVATED. BED LOCKED AND IN LOWEST POSTION. MEDHX: HTN, HX OF FL, DEPRESSION, SCHIZOPHRENIA. ALLERGIES: NKA
[2019-08-21] MEDS ORDERED: KETOROLAC 60 MG/2 ML VIAL IM ONE (04:45)
--- NOTE | 2019-08-21 04:50 | NUR ---
PT GIVEN TORADOL 60MG IM FOR C/O 5/10 R FOOT PAIN. FOOT SKIN IS INTACT. NO SWELLING, OR REDNESS NOTED.
--- NOTE | 2019-08-21 05:00 | NUR ---
PT FEET WERE CLEANED AND LEFT DRY. WRAPED AND BANDAGED FOR COMFORT MEASURES. CMS INTACT. CAP REFILL <3. PT DENIES NUMBNESS AND TINGLING. PT ALSO GIVEN SOCKS.
[2019-08-21 05:30] VITALS: BP 130/93
== END 2019-08-21 05:30 | disposition home or self-care (01) ==
LOC: MED 04:06
DX: M79.671 Pain in right foot (principal); F17.210 Nicotine dependence, cigarettes, uncomplicated; Z79.899 Other long term (current) drug therapy
CPT/HCPCS: 96372; 99283; J1885

== ENCOUNTER 2019-08-28 04:29 | Emergency (ER) | payer OTHER ==
[~2019-08-28] VITALS: Ht 182.9 cm; Wt 68.0 kg
[2019-08-28 04:32] VITALS: BP 155/111
--- NOTE | 2019-08-28 04:38 | NUR ---
PT AMBULATED TO BED 06 WITH STEADY GAIT.
--- NOTE | 2019-08-28 04:42 | NUR ---
53 YO M BIB SELF FOR C/C OF 10/10 RIGHT FOOT PAIN. PT PRESENTS WITH AN ABCESS ON THE BOTTOM OF HIS RIGHT FOOT ABOUT THE SIZE OF A GRAPE. PT DENIES TAKING ANY MEDICATION TO TREAT THE PAIN. PT STATES "I JUST WANT MY FOOT WRAPPED." PT DENIES N/V/D, COUGH, FEVER, AND SOB. BED LOCKED AND IN LOWEST POSITION. SIDE RAILS X1. NKA NO MED HX NO RX
[2019-08-28 04:54] VITALS: BP 155/111
== END 2019-08-28 04:54 | disposition home or self-care (01) ==
LOC: MED 04:29
DX: L84 Corns and callosities (principal); R03.0 Elevated blood-pressure reading, without diagnosis of hypertension; I11.0 Hypertensive heart disease with heart failure; Z79.899 Other long term (current) drug therapy
CPT/HCPCS: 99282

== ENCOUNTER 2019-09-27 21:45 | Emergency (ER) | payer OTHER ==
[~2019-09-27] VITALS: Ht 185.4 cm; Wt 65.8 kg
[2019-09-27 21:54] VITALS: BP 138/96
--- NOTE | 2019-09-27 21:56 | NUR ---
PT TO [facility]
[2019-09-27 22:20] VITALS: BP 138/96
== END 2019-09-27 22:21 | disposition home or self-care (01) ==
LOC: MED 21:45
DX: L84 Corns and callosities (principal); I10 Essential (primary) hypertension; I51.89 Other ill-defined heart diseases; Z79.899 Other long term (current) drug therapy
CPT/HCPCS: 99283

== ENCOUNTER 2019-10-28 11:42 | Emergency (ER) | payer OTHER ==
[~2019-10-28] VITALS: Ht 185.4 cm; Wt 68.2 kg
--- NOTE | 2019-10-28 12:09 | NUR ---
PATIENT AMBULATED TO BED 4.
[2019-10-28 12:16] VITALS: BP 147/68
[2019-10-28 12:20] VITALS: BP 147/68
--- NOTE | 2019-10-28 12:20 | NUR ---
A homeless male c/o rt foot pain intermittent for years. No edema, erythema, or deformity noticed on the rt foot. PT DENIES ANY FEVER, CP, SOB, OR COUGH AT THIS TIME; PATIENT STATES PAIN OF 5/10 AT THIS TIME; VSS; PATIENT POSITIONED FOR COMFORT; HOB ELEVATED; BEDRAILS UP X2; BED DOWN. ER MD MADE AWARE OF PT STATUS.
--- NOTE | 2019-10-28 12:22 | NUR ---
Dr. Isaacs is evaluating pt at bedside.
[2019-10-28] MEDS ORDERED: IBUPROFEN 600 MG TAB PO ONE (12:25)
--- NOTE | 2019-10-28 13:39 | NUR ---
PT LEFT WITHOUT DISCHARGE PAPERWORK PT LEFT WITHOUT DISCHARGE VITALS PT LEFT WITHOUT HOMELESS WAIVER AND PACKET
--- NOTE | 2019-10-28 13:44 | NUR ---
PT RETURNED FOR MOTRIN PRESCRIPTION
== END 2019-10-28 13:44 | disposition home or self-care (01) ==
LOC: MED 11:42
DX: G89.29 Other chronic pain (principal); M79.671 Pain in right foot; I51.89 Other ill-defined heart diseases; I10 Essential (primary) hypertension; Z79.899 Other long term (current) drug therapy
CPT/HCPCS: 99282

== ENCOUNTER 2019-10-30 07:17 | Inpatient (IN) | payer OTHER, SELFPAY ==
[~2019-10-30] VITALS: Ht 185.4 cm; Wt 77.1 kg
[2019-10-30 04:00] VITALS: BP 101/52
[2019-10-30 07:26] VITALS: BP 97/60
--- NOTE | 2019-10-30 07:35 | NUR ---
53 Y/O M C/C UPPER ABDOMINAL PAIN, BURNING SENSATION, NON RADIATING, 3/10 PAIN X 3 DAYS. PER PT FURTHER COMPLAINTS OF DEHYDRATION,VOMITING,DIARREAH X 3 DAYS. PT PRESENTS CALM,COOPERATIVE,DIAPHORETIC,TACHYPNIC,TACHYCARDIC. BP WNL. A/OX4,AMBULATORY. PT DENIES DRUG/ALCOHOL USE. PER PT NKA,NO HX,NO RX. PLACED FULL FOWLERS, OXYGEN 2L NC. SIDE RAIL X1.
--- NOTE | 2019-10-30 07:39 | NUR ---
Dr. Weems is evaluating the patient at bedside.
[2019-10-30] MEDS ORDERED: NACL 0.9% 1,000 ML IV ONE ×3 (07:40→10:20)
--- NOTE | 2019-10-30 08:47 | NUR ---
VIVIANAD NOTIFIED OF PT CURRENT HEART RATE
[2019-10-30] MEDS ORDERED: LORazepam 2 MG/ML VIAL IVP ONE (08:50)
--- NOTE | 2019-10-30 08:57 | NUR ---
PT RESTING IN BED, SIDE RAIL X2.
--- NOTE | 2019-10-30 09:13 | NUR ---
PT TAKEN TO CT VIA SANDOVAL
--- NOTE | 2019-10-30 09:20 | NUR ---
Patient returned from CT scan.
--- NOTE | 2019-10-30 09:38 | NUR ---
LAB AT BEDSIDE
[2019-10-30 09:51] LABS: BASOPHILS # (AUTO) 0.1 K/uL (0.00-0.22); BASOPHILS % (AUTO) 0.5 % (0.0-2.0); HEMATOCRIT 43.9 % (36-52); HEMOGLOBIN 14.5 g/dL (12.0-18.0); LYMPHOCYTES # (AUTO) 2.4 K/uL (2.0-11.5); LYMPHOCYTES % (AUTO) 18.2 % (20.5-51.1); MEAN CORPUSCULAR HEMOGLOBIN 28 pg (27-31); MEAN CORPUSCULAR HGB CONC 33 g/dL (33-37); MEAN CORPUSCULAR VOLUME 86.2 fL (80-94); MONOCYTES # (AUTO) 0.8 K/uL (0.8-1.0); MONOCYTES % (AUTO) 6.2 % (1.7-9.3); NEUTROPHILS % (AUTO) 75.1 % (42.2-75.2); PLATELET COUNT (AUTO) 205 K/uL (140-450); RED CELL DISTRIBUTION WIDTH 13.5 % (11.6-13.7); WHITE BLOOD COUNT (AUTO) 13.4 K/uL (4.8-10.8)
[2019-10-30 10:09] LABS: ALBUMIN 3.7 g/dL (3.4-5.0); ANION GAP 22.5 (8-16); CARBON DIOXIDE 16.6 mmol/L (21-32); CREATININE 2.4 mg/dL (0.6-1.3); POTASSIUM 4.1 mmol/L (3.5-5.1); TOTAL BILIRUBIN 0.9 mg/dL (0.0-1.0)
[2019-10-30] MEDS ORDERED: ONDANSETRON 4 MG/2 ML VIAL IVP PRN (10:45)
[2019-10-30] MEDS ORDERED: ACETAMINOPHEN 325 MG TAB PO PRN (10:45)
[2019-10-30] MEDS ORDERED: HYDROcodone/APAP 5/325 MG 1 TAB TAB PO PRN ×2 (10:45)
[2019-10-30] MEDS ORDERED: LORazepam 2 MG/ML VIAL IM/IVP PRN (11:25)
--- NOTE | 2019-10-30 14:16 | NUR ---
Patient provided with lunch tray. Patient eating unassisted.
[2019-10-30] MEDS: NACL 0.9% 1,000 ML IV SCH ×2 (14:41→16:38)
[2019-10-30 15:45] LABS: APPEARANCE,URINE CLEAR (CLEAR); BILIRUBIN,URINE NEGATIVE (NEGATIVE); BLOOD, URINE NEGATIVE (NEGATIVE); COLOR,URINE YELLOW (YELLOW); LEUKOCYTE ESTERASE ,URINE NEGATIVE (NEGATIVE); NITRITE, URINE NEGATIVE (NEGATIVE); PH,URINE 5.5 (5.0-9.0); UGLUCOSE NEGATIVE (NEGATIVE)
[2019-10-30 15:50] VITALS: BP 99/62
--- NOTE | 2019-10-30 15:50 | NUR ---
PATIENT ARRIVED TO UNIT VIA GURNEY FROM ED. PATIENT AWAKE, ALERT AND ORIENTED X4. RESP EVEN AND UNLABORED ON ROOM AIR. PATIENT IS HOMELESS AND HAS NO PERSONAL BELONGINGS EXCEPT SHIRT, PANTS AND SHOES. IV ACCESS TO RIGHT AC 18 IS INTACT AND PATENT WITH NS 125ML/HR. PATIENT DENIES OF ANY PAIN AT THIS TIME. ADMITTING CC OF ABDOMINAL PAIN X3 DAYS AND DX OF RAY. VITALS WNL. NO OTHER NOTED DISTRESS. SKIN IS WARM TO TOUCH AND INTACT. PATIENT AMBULATING WITH SLOW STEADY GAIT, URINAL GIVEN AND WAS INSTRUCTED TO USE CALL LIGHT FOR ASSIST. PATIENT VERBALIZED UNDERSTANDING. PATIENT WAS COOPERATIVE WITH ADMISSION PROCESS. MRSA AND COVID SWAB COLLECTED. PLAN OF CARE DISCUSSED WITH PATIENT. PATIENT VERBALIZED UNDERSTANDING. SAFETY MEASURE IN PLACE. DROPLET PRECAUTION OBSERVED. CALL LIGHT WITHIN REACH. WILL CONTINUE TO MONITOR.
--- NOTE | 2019-10-30 15:57 | NUR ---
Patient will be admitted to care of [facility]. Admited to TELEMETRY. Will go to room 116. Belongings list completed. Report to THEE WATTS.
--- NOTE | 2019-10-30 18:05 | NUR ---
PATIENT WAS ASSISTED BY NEEDLE MAKER TO CHANGE LINEN. PATIENT WAS SEEN AMBULATING WITH STEADY GAIT. RESP EVEN AND UNLABORED ON ROOM AIR. CALL LIGHT WITHIN REACH WILL CONTINUE TO MONITOR.
--- NOTE | 2019-10-30 19:20 | NUR ---
ENDORSED PATIENT TO NIGHT NURSE. PATIENT IN STABLE CONDITION.
--- NOTE | 2019-10-30 19:34 | NUR ---
RECEIVED REPORT FROM AM NURSE. PATIENT IS IN STABLE CONDITION, RESTING IN BED. IV SITE IS PATENT AND INTACT. SKIN IS WARM AND DRY TO TOUCH. PATIENT IS ABLE TO MAKE NEEDS KNOWN. PATIENT IS A/OX4. ORIENTED PATIENT TO NURSE. ALL STAFF TO OBSERVE ISOLATION PRECAUTION. SAFETY PRECAUTIONS IN PLACE. CALL LIGHT WITHIN REACH. WILL CONTINUE TO MONITOR.
[2019-10-30 20:00] VITALS: BP 91/63
--- NOTE | 2019-10-30 21:15 | NUR ---
CHECKED ON PATIENT. PATIENT IS SLEEPING IN BED. VISIBLE CHEST RISE NOTED. WILL CONTINUE TO MONITOR.
--- NOTE | 2019-10-30 23:14 | NUR ---
PATENTED CALLED AND SAID THAT HE IS BLEEDING. THE IV STOPPER HAS BEEN PULLED OUT. NURSE ASSESSED AND PATIENT IS IN STABLE CONDITION. FLUSHED AND REATTACHED IV. COVERED IV SITE WITH GAUZE. EDUCATION PROVIDED.
[2019-10-31] VITALS: BP 95/50
--- NOTE | 2019-10-31 00:46 | NUR ---
CHECKED ON PATIENT IS AWAKE AND TALKING ABOUT HIS UPCOMING OPERATIONS. PATIENT DOES NOT HAVE UP COMING OPERATIONS. PATIENT HAS A HISTORY OF SCHIZOPHRENIA AND NOT HEARING ANY VOICES UPON ASSESSMENT. PATIENT IS IN STABLE CONDITION. WILL CONTINUE TO MONITOR.
--- NOTE | 2019-10-31 02:41 | NUR ---
PATIENT IS SLEEPING. VISIBLE CHEST RISE NOTED. WILL CONTINUE TO MONITOR.
[2019-10-31] MEDS: NACL 0.9% 1,000 ML IV SCH ×2 (02:45→10:45)
[2019-10-31 04:00] VITALS: BP 101/52
--- NOTE | 2019-10-31 05:03 | NUR ---
CHECKED ON PATIENT AND FOUND THAT PATIENT WAS DC FROM IV FLUIDS. NURSE FOUND THE LINE IN THE BED AND THE BED WAS WET. IV LINE WAS REATTACHED AND EDUCATION GIVEN. PATIENT VERBALIZED UNDERSTANDING AND AGREED TO INFUSING IV FLUIDS.
--- NOTE | 2019-10-31 05:08 | NUR ---
LIBRARY SERVICES DEAN REPORTED THAT PATIENT IS GOING BETWEEN SINUS AND JUNCTIONAL. ASSESSMENT MADE, PATIENT IS IN STABLE CONDITION. HR IS 57. WILL CONTINUE TO MONITOR.
--- NOTE | 2019-10-31 07:10 | NUR ---
RECEIVED PT FROM ANIMAL CARE GIVER NURSEPRETTY, PT IS AWAKE AND LYING ON THE BED WITH IV LINE ON THE RT AC G. 18, NON-PATENT AND AC IS SWOLLEN, IV LINE REMOVED, ON ROOM AIR, PT DENIES PAIN AND NO SIGN OF DISTRESS NOTED, WILL CONTINUE TO MONITOR PT.
[2019-10-31 07:17] LABS: BASOPHILS % (AUTO) 0.7 % (0.0-2.0); EOSINOPHILS # (AUTO) 0.1 K/uL (0-0.4); EOSINOPHILS % (AUTO) 1.1 % (0.0-4.0); HEMATOCRIT 38.5 % (36-52); HEMOGLOBIN 12.7 g/dL (12.0-18.0); LYMPHOCYTES # (AUTO) 2.4 K/uL (2.0-11.5); LYMPHOCYTES % (AUTO) 36.1 % (20.5-51.1); MEAN CORPUSCULAR HEMOGLOBIN 29 pg (27-31); MEAN CORPUSCULAR HGB CONC 33 g/dL (33-37); MEAN CORPUSCULAR VOLUME 86.9 fL (80-94); MONOCYTES # (AUTO) 0.5 K/uL (0.8-1.0); MONOCYTES % (AUTO) 8.1 % (1.7-9.3); NEUTROPHILS # (AUTO) 3.6 K/uL (1.8-7.7); PLATELET COUNT (AUTO) 164 K/uL (140-450); RED BLOOD CELL COUNT(AUTO) 4.43 MIL/uL (4.20-6.10); RED CELL DISTRIBUTION WIDTH 13.6 % (11.6-13.7); WHITE BLOOD COUNT (AUTO) 6.7 K/uL (4.8-10.8)
[2019-10-31 07:45] LABS: ANION GAP 14.5 (8-16); CARBON DIOXIDE 22.3 mmol/L (21-32); CREATININE 0.9 mg/dL (0.6-1.3); POTASSIUM 3.8 mmol/L (3.5-5.1)
[2019-10-31 08:00] VITALS: BP 92/59
[2019-10-31] MEDS ORDERED: ASPIRIN 81 MG TAB.CHEW PO SCH (09:00)
--- NOTE | 2019-10-31 10:28 | NUR ---
PT WAS GIVEN THE SCHEDULED AM MEDICATION NOW, WILL MONITOR PT.
[2019-10-31 12:00] VITALS: BP 101/63
--- NOTE | 2019-10-31 12:21 | NUR ---
PT VERBALIZED NOW THAT HE WANTS TO LEAVE AGAINST MEDICAL ADVICE, INSTRUCTED THAT COVID RESULT IS STILL PENDING, BUT STILL PERSISTENT TO LEAVE AMA, WILL NOTIFY .
--- NOTE | 2019-10-31 13:20 | NUR ---
DISCHARGED PT WHO IS A HOMELESS, DISCHARGED TEACHINGS AND INSTRUCTIONS GIVEN TO PT WELL HOME ISOLATION INFORMATION, PT VERBALIZED UNDERSTANDING, IV LINE AND HEART MONITOR REMOVED AND PT IS STABLE AT THIS TIME.
[2019-11-02 15:12] LABS: HEPATITIS B SURFACE ANTIBODY Non Reactive (.)
== END 2019-10-31 13:20 | disposition home or self-care (01) ==
LOC: MED 07:17 → MTU 10:47
PROVIDERS: ADMIT Internal Medicine; ATTEND Internal Medicine
DX: K80.20 Calculus of gallbladder without cholecystitis without obstruction (principal); R65.10 Systemic inflammatory response syndrome (SIRS) of non-infectious origin without acute organ dysfunction; N17.9 Acute kidney failure, unspecified; E86.0 Dehydration; F31.9 Bipolar disorder, unspecified; F20.9 Schizophrenia, unspecified; Z60.2 Problems related to living alone; R00.0 Tachycardia, unspecified; Z20.828 Contact with and (suspected) exposure to other viral communicable diseases; I25.2 Old myocardial infarction
CPT/HCPCS: 36415; 71045; 80053; 81003; 83690; 85025; 86704; 86706; 86708; 86709; 86803; 87081; 87340; 93005; 96361; 96374; 99291; J2060; J7030; Q0092; U0003-CS

== ENCOUNTER 2019-12-01 00:25 | Emergency (ER) | payer OTHER, SELFPAY ==
[~2019-12-01] VITALS: Ht 185.4 cm; Wt 68.0 kg
[2019-12-01 00:40] VITALS: BP 112/84
--- NOTE | 2019-12-01 00:46 | NUR ---
PT TAKEN TO BED 6
--- NOTE | 2019-12-01 00:48 | NUR ---
53 YO MALE BIB SELF FOR C/O R FOOT PAIN X 3 WEEKS. PT STATES PAIN IS DULL/ACHINESS. DENIES FEVER CHILLS @ THIS TIME. PT AAOX 4, PT STATES HE IS HOMELESS DENIES N/V/D. PT AMBULATING @ BEDSIDE. SKIN INTACT; CALLOUS NOTED TO R UPPER PORTION OF FOOT. SANDOVAL LOCKED IN LOWEST POSITION. WILL UPDATE ERMD. HX: DENIES AX: DENIES RX: DENIES
--- NOTE | 2019-12-01 01:11 | NUR ---
Dr. Sousa examining patient.
[2019-12-01] MEDS ORDERED: IBUPROFEN 400 MG TAB PO ONE (01:15)
[2019-12-01 02:21] VITALS: BP 112/84
--- NOTE | 2019-12-01 02:21 | NUR ---
Patient given written and verbal discharge instructions and verbalizes understanding. Given copies of tests performed during visit. Patient is awake, alert and oriented. Ambulatory with steady gait. Given list of available shelters in surrounding areas.
== END 2019-12-01 02:21 | disposition home or self-care (01) ==
LOC: MED 00:25
DX: M20.41 Other hammer toe(s) (acquired), right foot (principal); I25.2 Old myocardial infarction; I10 Essential (primary) hypertension
CPT/HCPCS: 99282

== ENCOUNTER 2019-12-11 04:13 | Emergency (ER) | payer OTHER, SELFPAY ==
[~2019-12-11] VITALS: Ht 185.4 cm; Wt 68.5 kg
[2019-12-11 04:23] VITALS: BP 150/103
--- NOTE | 2019-12-11 04:23 | NUR ---
PT AMBULATED TO ER BED 11 W/ STEADY GAIT.
--- NOTE | 2019-12-11 04:33 | NUR ---
53 Y/O MALE PRESENTED TO ED C/O RT FOOT PAIN . PT STATES IT FEELS LIKE HE HAS A NEEDLE STUCK IN HIS RT FOOT. OBSERVED CALLUS ON RT FOOT PADDING. NO REDNESS OR SWELLING NOTED. PT RESTING IN BED, LOCKED AND IN LOWEST POSITION, HOB ELEVATED, SIDE RAIL X 1. NO ACUTE DISTRESS NOTED AT THIS TIME. PMH: DENIES NKA
--- NOTE | 2019-12-11 04:34 | NUR ---
YAMILETH NGUYEN AT BEDSIDE FOR MEDICAL EVALUATION.
[2019-12-11 04:59] VITALS: BP 150/103
--- NOTE | 2019-12-11 04:59 | NUR ---
Patient discharged with v/s stable. Written and verbal after care instructions given and explained. Patient verbalized understanding. Ambulatory with steady gait. All questions addressed prior to discharge. Advised to follow up with PMD. Pt provided w/ homeless package, sandwich and socks.
== END 2019-12-11 04:59 | disposition home or self-care (01) ==
LOC: MED 04:13
DX: L84 Corns and callosities (principal); I10 Essential (primary) hypertension; I25.2 Old myocardial infarction
CPT/HCPCS: 99281

== ENCOUNTER 2020-01-05 01:04 | Emergency (ER) | payer OTHER, SELFPAY ==
[~2020-01-05] VITALS: Ht 175.3 cm; Wt 72.6 kg
[2020-01-05 01:16] VITALS: BP 144/85
[2020-01-05] MEDS ORDERED: KETOROLAC 60 MG/2 ML VIAL IM ONE (01:25)
[2020-01-05 02:19] VITALS: BP 144/85
== END 2020-01-05 02:19 | disposition home or self-care (01) ==
LOC: MED 01:04
DX: S13.4XXA Sprain of ligaments of cervical spine, initial encounter (principal); F17.210 Nicotine dependence, cigarettes, uncomplicated; I10 Essential (primary) hypertension; I51.89 Other ill-defined heart diseases; Z90.49 Acquired absence of other specified parts of digestive tract; Z98.890 Other specified postprocedural states; X58.XXXA Exposure to other specified factors, initial encounter; Y93.89 Activity, other specified; Y92.89 Other specified places as the place of occurrence of the external cause; Y99.8 Other external cause status
CPT/HCPCS: 96372; 99283; J1885

== ENCOUNTER 2020-02-02 03:50 | Emergency (ER) | payer OTHER, SELFPAY ==
[~2020-02-02] VITALS: Ht 182.9 cm; Wt 71.2 kg
[2020-02-02 04:08] VITALS: BP 135/98
--- NOTE | 2020-02-02 04:11 | NUR ---
PT TAKEN TO [facility] WITH STEADY GAIT.
[2020-02-02 06:22] VITALS: BP 118/84
== END 2020-02-02 06:04 | disposition home or self-care (01) ==
LOC: MED 03:50
DX: L84 Corns and callosities (principal); I10 Essential (primary) hypertension; I51.89 Other ill-defined heart diseases
CPT/HCPCS: 99281

== ENCOUNTER 2020-02-09 04:40 | Emergency (ER) | payer OTHER, SELFPAY ==
[~2020-02-09] VITALS: Ht 190.5 cm; Wt 81.6 kg
[2020-02-09 04:47] VITALS: BP 128/73
--- NOTE | 2020-02-09 04:51 | NUR ---
PT TAKEN TO BED 7
--- NOTE | 2020-02-09 04:57 | NUR ---
Dr. Danielson examining patient.
[2020-02-09] MEDS ORDERED: NACL 0.9% 1,000 ML IV ONE (05:00)
[2020-02-09] MEDS ORDERED: KETOROLAC 30 MG/ML VIAL IVP ONE (05:00)
--- NOTE | 2020-02-09 05:23 | NUR ---
Pt recieved with c/o midline upper ABD pain, ABD soft mild tenderness noted to upper ABD midline, positive bowel sounds x4 quadrants. Pt AAOx4, sts "I really sleepy right now". Pt medicated per ED MD order. Will continue to observe.
[2020-02-09 05:34] LABS: LYMPHOCYTES # (AUTO) 1.8 K/uL (2.0-11.5); MONOCYTES # (AUTO) 0.5 K/uL (0.8-1.0); WHITE BLOOD COUNT (AUTO) 5.1 K/uL (4.8-10.8)
[2020-02-09 05:44] LABS: BASOPHILS # (AUTO) 0.1 K/uL (0.00-0.22); BASOPHILS % (AUTO) 1.3 % (0.0-2.0); EOSINOPHILS # (AUTO) 0.2 K/uL (0-0.4); EOSINOPHILS % (AUTO) 3.2 % (0.0-4.0); HEMATOCRIT 43.8 % (36-52); HEMOGLOBIN 14.7 g/dL (12.0-18.0); LYMPHOCYTES % (AUTO) 35.5 % (20.5-51.1); MEAN CORPUSCULAR HEMOGLOBIN 29 pg (27-31); MEAN CORPUSCULAR HGB CONC 34 g/dL (33-37); MEAN CORPUSCULAR VOLUME 86.1 fL (80-94); MONOCYTES % (AUTO) 9.5 % (1.7-9.3); NEUTROPHILS # (AUTO) 2.6 K/uL (1.8-7.7); NEUTROPHILS % (AUTO) 50.5 % (42.2-75.2); PLATELET COUNT (AUTO) 244 K/uL (140-450); RED BLOOD CELL COUNT(AUTO) 5.09 MIL/uL (4.20-6.10); RED CELL DISTRIBUTION WIDTH 13.1 % (11.6-13.7)
[2020-02-09 05:52] LABS: ALBUMIN 3.8 g/dL (3.4-5.0); ANION GAP 15.5 (8-16); CARBON DIOXIDE 25.4 mmol/L (21-32); CREATININE 0.7 mg/dL (0.6-1.3); POTASSIUM 3.9 mmol/L (3.5-5.1); TOTAL BILIRUBIN 0.4 mg/dL (0.0-1.0)
--- NOTE | 2020-02-09 05:57 | NUR ---
Pt resting with no acute distres noted at this time.
[2020-02-09 06:35] VITALS: BP 122/66
--- NOTE | 2020-02-09 06:36 | NUR ---
ACI given to pt with verbal understanding, IV lock D/C'd with cath intact and bleeding controlled. Pt ambulated off unit with steady gait and all belongings.
--- NOTE | 2020-02-14 05:53 | NUR ---
late entry---- s/w primary nurse, end times as follow; NS end time : 619
== END 2020-02-09 06:36 | disposition home or self-care (01) ==
LOC: MED 04:40
DX: K59.00 Constipation, unspecified (principal); I10 Essential (primary) hypertension; I51.89 Other ill-defined heart diseases
CPT/HCPCS: 36415; 74018; 80053; 83690; 85025; 96361; 96374; 99284; J1885; J7030

== ENCOUNTER 2020-02-09 11:06 | Emergency (ER) | payer OTHER, SELFPAY ==
[~2020-02-09] VITALS: Ht 182.9 cm; Wt 72.6 kg
[2020-02-09 11:27] VITALS: BP 143/94
--- NOTE | 2020-02-09 11:36 | NUR ---
54 YO M BIBA C/O SEVERE ABDOMINAL PAIN 30 MINS PRIOR TO ARRIVAL. PAIN 4/10, SHARP, NON-RADIATING. PT ALSO REPORTED NAUSEA AND 2 EPISODES OF VOMITING. DENIES HEMOPTYSIS. PER [facility], GIVEN 4MG ZOFRAN ON THE WAY TO ED. IN ED, VSS. NO ACTIVE VOMITING NOTED. ABDOMEN FLAT, TENDER ON EPIGASTRIC AREA. PT RESTING IN BED, 2 SIDERAILS UP. ERMD MADE AWARE OF PT STATUS. PMH: HTN, ID [id number] NKA
[2020-02-09 14:01] VITALS: BP 134/89
== END 2020-02-09 14:02 | disposition home or self-care (01) ==
LOC: MED 11:06
DX: K59.00 Constipation, unspecified (principal); I51.89 Other ill-defined heart diseases; I10 Essential (primary) hypertension
CPT/HCPCS: 99282

== ENCOUNTER 2020-02-20 19:24 | Emergency (ER) | payer OTHER ==
[~2020-02-20] VITALS: Ht 182.9 cm; Wt 74.8 kg
[2020-02-20 19:32] VITALS: BP 136/71
[2020-02-20 19:33] VITALS: BP 136/71
[2020-02-20] MEDS ORDERED: ACETAMINOPHEN 325 MG TAB PO ONE (20:00)
--- NOTE | 2020-02-20 20:33 | NUR ---
PATIENT BIB [employer]. PATIENT EXAMINED BY . PATIENT MEDICALLY CLEARED AND RELEASED IN CUSTODY IN STABLE CONDITION. ORIGINAL PRE-BOOK FORM GIVEN TO OFFICER MALCOLM, # [phone].
== END 2020-02-20 20:33 ==
LOC: MED 19:24
DX: M79.671 Pain in right foot (principal); M20.41 Other hammer toe(s) (acquired), right foot; L84 Corns and callosities; I10 Essential (primary) hypertension; I25.2 Old myocardial infarction
CPT/HCPCS: 99283

== ENCOUNTER 2020-03-17 18:57 | Emergency (ER) | payer OTHER ==
[~2020-03-17] VITALS: Ht 175.3 cm; Wt 72.1 kg
[2020-03-17 19:17] VITALS: BP 132/81
--- NOTE | 2020-03-17 19:21 | NUR ---
PATIENT AMBUALTED TO LOBBY WITH STEADY GAIT.
--- NOTE | 2020-03-17 20:38 | NUR ---
bettina at chair a with pt.
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
--- NOTE | 2020-03-17 20:45 | NUR ---
emt at bedside
--- NOTE | 2020-03-17 20:52 | NUR ---
PATIENT TAKEN TO XRAY VIA W/C.
--- NOTE | 2020-03-17 21:10 | NUR ---
emt at chair side
[2020-03-17 21:30] VITALS: BP 132/81
--- NOTE | 2020-03-17 21:57 | NUR ---
PT DID NOT TAKE D/C PAPERWORK. FOUND PT'S PAPER WORK ON TABLE BEHIND CHAIR.
== END 2020-03-17 21:30 | disposition home or self-care (01) ==
LOC: MED 18:57
DX: S81.811A Laceration without foreign body, right lower leg, initial encounter (principal); I11.9 Hypertensive heart disease without heart failure; W18.39XA Other fall on same level, initial encounter; Y93.89 Activity, other specified; Y92.89 Other specified places as the place of occurrence of the external cause; Y99.8 Other external cause status
CPT/HCPCS: 73590; 99283

== ENCOUNTER 2020-03-21 04:10 | Emergency (ER) | payer OTHER ==
[~2020-03-21] VITALS: Ht 185.4 cm; Wt 72.6 kg
[2020-03-21 04:30] VITALS: BP 159/90
--- NOTE | 2020-03-21 04:32 | NUR ---
TO LOBBY A/W BED AMBULATORY
--- NOTE | 2020-03-21 04:52 | NUR ---
SEEN AND EXAMINED BY YAMILETH
[2020-03-21] MEDS ORDERED: KETOROLAC 60 MG/2 ML VIAL IM ONE (05:00)
--- NOTE | 2020-03-21 05:00 | NUR ---
MEDICATED PER ERMDS ORDER, TOLERATED WELL.
[2020-03-21 05:45] VITALS: BP 134/86
== END 2020-03-21 05:45 | disposition home or self-care (01) ==
LOC: MED 04:10
DX: M79.672 Pain in left foot (principal); L84 Corns and callosities; I10 Essential (primary) hypertension; I25.2 Old myocardial infarction; F17.200 Nicotine dependence, unspecified, uncomplicated; Z90.49 Acquired absence of other specified parts of digestive tract; Z98.890 Other specified postprocedural states
CPT/HCPCS: 96372; 99283; J1885

== ENCOUNTER 2020-04-02 00:13 | Emergency (ER) | payer OTHER ==
[~2020-04-02] VITALS: Ht 185.4 cm; Wt 75.7 kg
[2020-04-02 00:20] VITALS: BP 137/90
--- NOTE | 2020-04-02 00:25 | NUR ---
PT AMBULATED TO LOBBY
--- NOTE | 2020-04-02 02:00 | NUR ---
SEEN AND EXAMINED BY ERMD AND FOR D/C WITH PRESCRIPTION.
[2020-04-02 02:40] VITALS: BP 137/90
--- NOTE | 2020-04-02 02:40 | NUR ---
Patient discharged with v/s stable. Written and verbal after care instructions given and explained. Patient alert, oriented and verbalized understanding of instructions. Ambulatory with steady gait. All questions addressed prior to discharge. ID band removed. Patient advised to follow up with PMD. Rx of BENADRYL ALLERGY given. Patient educated on indication of medication including possible reaction and side effects. Opportunity to ask questions provided and answered.
== END 2020-04-02 02:40 | disposition home or self-care (01) ==
LOC: MED 00:13
DX: G90.09 Other idiopathic peripheral autonomic neuropathy (principal); I11.9 Hypertensive heart disease without heart failure
CPT/HCPCS: 99282

== ENCOUNTER 2020-04-12 00:20 | Emergency (ER) | payer OTHER ==
[~2020-04-12] VITALS: Ht 185.4 cm; Wt 74.8 kg
[2020-04-12 00:28] VITALS: BP 131/83
[2020-04-12] MEDS ORDERED: cephALEXin 500 MG CAP PO ONE (00:40)
[2020-04-12] MEDS ORDERED: SULFAMETH/TRIMETH DS 800/160MG 1 TAB PO ONE (00:40)
[2020-04-12] MEDS ORDERED: KETOROLAC 30 MG/ML VIAL IM ONE (00:40)
[2020-04-12 01:09] VITALS: BP 131/83
== END 2020-04-12 01:09 | disposition home or self-care (01) ==
LOC: MED 00:20
DX: L03.115 Cellulitis of right lower limb (principal); J30.9 Allergic rhinitis, unspecified; I10 Essential (primary) hypertension; I25.2 Old myocardial infarction
CPT/HCPCS: 96372; 99283; J1885

== ENCOUNTER 2020-05-13 01:38 | Emergency (ER) | payer OTHER ==
[~2020-05-13] VITALS: Ht 182.9 cm; Wt 76.2 kg
--- NOTE | 2020-05-13 01:40 | NUR ---
PATIENT ASSISTED BY EMS TO [facility] VIA GURNEY.
[2020-05-13 01:42] VITALS: BP 151/93
--- NOTE | 2020-05-13 01:45 | NUR ---
SEE COMEPLETE ASSESSMENT.
[2020-05-13] MEDS ORDERED: IBUPROFEN 800 MG TAB PO ONE (02:10)
--- NOTE | 2020-05-13 02:31 | NUR ---
ERMD AT BEDSIDE EVALUATING PATIENT.
--- NOTE | 2020-05-13 02:31 | NUR ---
PATIENT RETURNED FROM XRAY VIA W/C.
[2020-05-13 05:00] VITALS: BP 148/84
--- NOTE | 2020-05-13 05:03 | NUR ---
HOMEMAKING REHABILITATION CONSULTANT CALLED FOR HOMELESS PACKET. RESOURSES ALSO PROVIDED FOR PATIENT.
== END 2020-05-13 05:00 | disposition home or self-care (01) ==
LOC: MED 01:38
DX: S90.811A Abrasion, right foot, initial encounter (principal); I51.9 Heart disease, unspecified; X58.XXXA Exposure to other specified factors, initial encounter; Y93.89 Activity, other specified; Y92.89 Other specified places as the place of occurrence of the external cause; Y99.8 Other external cause status
CPT/HCPCS: 73630; 99284

== ENCOUNTER 2020-05-15 08:15 | Emergency (ER) | payer OTHER ==
[~2020-05-15] VITALS: Ht 185.4 cm; Wt 72.6 kg
[2020-05-15 08:24] VITALS: BP 137/93
[2020-05-15 09:43] LABS: BASOPHILS # (AUTO) 0.1 K/uL (0.00-0.22); BASOPHILS % (AUTO) 1.4 % (0.0-2.0); EOSINOPHILS # (AUTO) 0.1 K/uL (0-0.4); EOSINOPHILS % (AUTO) 2.1 % (0.0-4.0); HEMOGLOBIN 14.5 g/dL (12.0-18.0); LYMPHOCYTES # (AUTO) 1.8 K/uL (2.0-11.5); LYMPHOCYTES % (AUTO) 39.9 % (20.5-51.1); MEAN CORPUSCULAR HEMOGLOBIN 28 pg (27-31); MEAN CORPUSCULAR HGB CONC 33 g/dL (33-37); MEAN CORPUSCULAR VOLUME 86.1 fL (80-94); MONOCYTES # (AUTO) 0.5 K/uL (0.8-1.0); MONOCYTES % (AUTO) 10.9 % (1.7-9.3); NEUTROPHILS # (AUTO) 2.1 K/uL (1.8-7.7); NEUTROPHILS % (AUTO) 45.7 % (42.2-75.2); PLATELET COUNT (AUTO) 233 K/uL (140-450); RED BLOOD CELL COUNT(AUTO) 5.11 MIL/uL (4.20-6.10); RED CELL DISTRIBUTION WIDTH 13.7 % (11.6-13.7); WHITE BLOOD COUNT (AUTO) 4.5 K/uL (4.8-10.8)
[2020-05-15 09:58] LABS: ALBUMIN 3.7 g/dL (3.4-5.0); ANION GAP 13.4 (8-16); CARBON DIOXIDE 25.6 mmol/L (21-32); CREATININE 0.8 mg/dL (0.6-1.3); TOTAL BILIRUBIN 0.2 mg/dL (0.0-1.0)
[2020-05-15 09:59] LABS: PROTHROMBIN TIME 33.3 secs (10.8-13.4)
[2020-05-15 11:42] LABS: PROTHROMBIN TIME 9.7 secs (10.8-13.4)
[2020-05-15 12:16] VITALS: BP 137/93
== END 2020-05-15 12:16 | disposition home or self-care (01) ==
LOC: MED 08:15
DX: K62.5 Hemorrhage of anus and rectum (principal); K64.4 Residual hemorrhoidal skin tags; I11.9 Hypertensive heart disease without heart failure; Z87.442 Personal history of urinary calculi; Z90.49 Acquired absence of other specified parts of digestive tract
CPT/HCPCS: 36415; 80053; 85025; 85610; 85730; 86886; 86900; 86901; 93005; 99284

== ENCOUNTER 2020-05-24 20:25 | Emergency (ER) | payer OTHER ==
[~2020-05-24] VITALS: Ht 185.4 cm; Wt 72.6 kg
[2020-05-24 20:30] VITALS: BP 145/80
--- NOTE | 2020-05-24 20:30 | NUR ---
TO BED AMBULATORY
--- NOTE | 2020-05-24 20:38 | NUR ---
Dr. Sousa examining patient.
--- NOTE | 2020-05-24 20:43 | NUR ---
54 Y MALE PRESENTS TO ED FOR CHILLS/RUNNY NOSE. DENIES N/V/D; SKIN IS PINK/WARM/DRY; AAOX4 WITH EVEN AND STEADY GAIT; LUNGS CLEAR BL; HR EVEN AND REGULAR; PT DENIES ANY FEVER, CP, SOB, OR COUGH AT THIS TIME; PATIENT STATES PAIN OF 0/10 AT THIS TIME; VSS; PATIENT POSITIONED FOR COMFORT; HOB ELEVATED; BEDRAILS UP X2; BED DOWN. ER MD MADE AWARE OF PT STATUS. PAST MEDICAL HX: [place] 2004 SACH[place]
--- NOTE | 2020-05-24 20:47 | NUR ---
X-Ray at bedside.
--- NOTE | 2020-05-24 20:52 | NUR ---
NADIR SWAB COLLECTED AND SENT TO LAB
[2020-05-24 23:02] VITALS: BP 145/80
--- NOTE | 2020-05-24 23:03 | NUR ---
Patient discharged with v/s stable. Written and verbal after care instructions given and explained. Patient verbalized understanding. Ambulatory with steady gait. All questions addressed prior to discharge. Advised to follow up with PMD. HOMELESS MEAL AND PACKET GIVEN
== END 2020-05-24 23:03 | disposition home or self-care (01) ==
LOC: MED 20:25
DX: J06.9 Acute upper respiratory infection, unspecified (principal); Z20.822 Contact with and (suspected) exposure to COVID-19; I11.9 Hypertensive heart disease without heart failure
CPT/HCPCS: 71045; 99284

== ENCOUNTER 2020-06-14 16:11 | Emergency (ER) | payer OTHER ==
[~2020-06-14] VITALS: Ht 182.9 cm; Wt 72.6 kg
[2020-06-14 16:15] VITALS: BP 136/78
--- NOTE | 2020-06-14 16:23 | NUR ---
PT AMBULATED TO BED 9
--- NOTE | 2020-06-14 16:23 | NUR ---
Karyna adams in ED - 06/14/20 at 1701 by MEDBC1 PT AMBULATED IN A SWING LIKE MANNER TO BED 9
--- NOTE | 2020-06-14 16:25 | NUR ---
54 Y/O MALE C/O HEADACHE AND RIGHT SIDED NECK PAIN THAT BEGAN TODAY. PT STATED THAT HE FELL EARLIER TODAY ON HIS "NECK". PT DENIES LOSS OF CONSCIOUSNESS. PT RATES PAIN 3/10 AND HE DESCRIBES THROBBING PAIN. PT DENIES TAKING ANYTHING FOR PAIN. SLIGHT BRUISE NOTED ON THE BACK OF R EAR. PT HAS DIFFICULTY MOVING NECK SIDE TO SIDE. PT IS A/O X4 WITH EVEN AND UNLABORED RESPIRATIONS. PT IS HOMELESS AND APPEARS DISHELVED. PT LAYING IN BED WITH BED IN LOWEST POSITION, BRAKES LOCKED, X1 SIDERAIL UP. NO PMH NKDA
--- NOTE | 2020-06-14 16:45 | NUR ---
PRETTY GROVER AT BEDSIDE
[2020-06-14] MEDS ORDERED: KETOROLAC 60 MG/2 ML VIAL IM ONE (16:50)
[2020-06-14] MEDS ORDERED: IBUP-1842 PO (17:17)
[2020-06-14 17:45] VITALS: BP 136/78
--- NOTE | 2020-06-14 17:46 | NUR ---
Patient given written and verbal discharge instructions and verbalizes understanding. Given copies of tests performed during visit. Patient is awake, alert and oriented. Ambulatory with steady gait. Refuses offer of fpc placement. Given list of available shelters in surrounding areas. Pt also given bus pass, homeless packet, and a bag of food. Homeless waiver form signed.
== END 2020-06-14 17:45 | disposition home or self-care (01) ==
LOC: MED 16:11
DX: S16.1XXA Strain of muscle, fascia and tendon at neck level, initial encounter (principal); I10 Essential (primary) hypertension; I25.2 Old myocardial infarction; Z90.49 Acquired absence of other specified parts of digestive tract; X58.XXXA Exposure to other specified factors, initial encounter; Y93.89 Activity, other specified; Y92.89 Other specified places as the place of occurrence of the external cause; Y99.8 Other external cause status
CPT/HCPCS: 96372; 99283; J1885

== ENCOUNTER 2020-06-16 10:19 | Emergency (ER) | payer OTHER ==
[~2020-06-16] VITALS: Ht 182.9 cm; Wt 72.6 kg
[~2020-06-16 10:19] MED LIST changes: -ACET-2619 PO; +IBUP-1842 PO
[2020-06-16 10:21] VITALS: BP 135/75
--- NOTE | 2020-06-16 10:26 | NUR ---
Pt taken to lobby to wait for further evaluation.
--- NOTE | 2020-06-16 11:14 | NUR ---
No nursing care rendered for patient. Pt was seen by Dr. Sousa in lobby and discharged from lobby.
--- NOTE | 2020-06-16 11:15 | NUR ---
Patient discharged with v/s stable. Written and verbal after care instructions given and explained. Patient verbalized understanding. Ambulatory with steady gait. All questions addressed prior to discharge. Advised to follow up with PMD. Pt provided with meal to go.
== END 2020-06-16 11:15 | disposition home or self-care (01) ==
LOC: MED 10:19
DX: E86.0 Dehydration (principal); R63.1 Polydipsia; I11.9 Hypertensive heart disease without heart failure
CPT/HCPCS: 99281

== ENCOUNTER 2020-06-17 16:51 | Emergency (ER) | payer OTHER ==
[~2020-06-17] VITALS: Ht 185.4 cm; Wt 72.6 kg
[2020-06-17 17:03] VITALS: BP 111/88
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
--- NOTE | 2020-06-17 17:39 | NUR ---
PT GIVEN WARM BLANKET AND CUP OF WATER
[2020-06-17 18:41] VITALS: BP 111/88
--- NOTE | 2020-06-17 18:41 | NUR ---
Patient given written and verbal discharge instructions and verbalizes understanding. Given copies of tests performed during visit. Patient is awake, alert and oriented. Ambulatory with steady gait. Refuses offer of care home placement. Given list of available shelters in surrounding areas. Pt given bag of food and homeless packet
== END 2020-06-17 18:41 | disposition home or self-care (01) ==
LOC: MED 16:51
DX: E86.0 Dehydration (principal); F17.210 Nicotine dependence, cigarettes, uncomplicated; F15.10 Other stimulant abuse, uncomplicated; I11.9 Hypertensive heart disease without heart failure; Z59.0 Homelessness
CPT/HCPCS: 99281

== ENCOUNTER 2020-06-21 02:10 | Emergency (ER) | payer OTHER ==
[~2020-06-21] VITALS: Ht 182.9 cm; Wt 72.6 kg
[2020-06-21 02:19] VITALS: BP 115/77
--- NOTE | 2020-06-21 02:43 | NUR ---
PATIENT PRESENTS TO ED WITH NECK PAIN. PT STATES HE WAS PLAYING FOOTBALL AND GOT "TACKLED". DENIES N/V/D; SKIN IS PINK/WARM/DRY; AAOX4 WITH EVEN AND STEADY GAIT; LUNGS CLEAR BL; HR EVEN AND REGULAR; PT DENIES ANY FEVER, CP, SOB, OR COUGH AT THIS TIME; PATIENT STATES PAIN OF 10/10 NECK PAIN AT THIS TIME; VSS; PATIENT POSITIONED FOR COMFORT; HOB ELEVATED; BEDRAILS UP X2; BED DOWN. ER MD MADE AWARE OF PT STATUS. PMH: DENIES NKA
[2020-06-21] MEDS ORDERED: IBUPROFEN 400 MG TAB PO ONE (04:10)
[2020-06-21 04:54] VITALS: BP 115/77
== END 2020-06-21 04:55 | disposition home or self-care (01) ==
LOC: MED 02:10
DX: M54.2 Cervicalgia (principal); I10 Essential (primary) hypertension; I25.2 Old myocardial infarction; Z79.899 Other long term (current) drug therapy
CPT/HCPCS: 99282

== ENCOUNTER 2020-06-29 19:41 | Emergency (ER) | payer OTHER ==
[~2020-06-29] VITALS: Ht 190.5 cm; Wt 73.0 kg
[2020-06-29 20:40] VITALS: BP 144/99
--- NOTE | 2020-06-29 21:00 | NUR ---
RECEIVED IN BED 5 WITH C/O DIZZINESS AND STATES HE IS CONCERNED. AMBULATES WITH STEADY GAIT, HAND SPINNING LATHE OPERATOR HYDRAULIC STRONG AND EQUAL, GALILEO.
[2020-06-29 21:53] VITALS: BP 144/99
== END 2020-06-29 21:53 | disposition home or self-care (01) ==
LOC: MED 19:41
DX: T73.0XXA Starvation, initial encounter (principal); R42 Dizziness and giddiness; I11.9 Hypertensive heart disease without heart failure; F17.210 Nicotine dependence, cigarettes, uncomplicated; F12.10 Cannabis abuse, uncomplicated; Z59.0 Homelessness
CPT/HCPCS: 93005; 99283

== ENCOUNTER 2020-08-23 04:50 | Emergency (ER) | payer OTHER ==
[~2020-08-23] VITALS: Ht 185.4 cm; Wt 72.6 kg
[~2020-08-23 04:50] MED LIST changes: -IBUP-1842 PO; +QUET25TA46 PO
[2020-08-23 05:05] VITALS: BP 125/89
--- NOTE | 2020-08-23 05:08 | NUR ---
YAMILETH BUSTILLOAW IN TRIAGE ROOM PERFORMING ASSESSMENT.
--- NOTE | 2020-08-23 05:35 | NUR ---
Patient assessment completed by YAMILETH, no nursing interventions needed at this time.
[2020-08-23 05:37] VITALS: BP 125/89
--- NOTE | 2020-08-23 05:37 | NUR ---
Patient discharged by Dr. Weems. Patient given written and verbal discharge instructions and verbalizes understanding. Given copies of tests performed during visit. Patient is awake, alert and oriented. Ambulatory with steady gait. Refuses offer of nursing home placement. Given list of available shelters in surrounding areas.
== END 2020-08-23 05:37 | disposition home or self-care (01) ==
LOC: MED 04:50
DX: M79.671 Pain in right foot (principal); M79.672 Pain in left foot; E11.9 Type 2 diabetes mellitus without complications; I10 Essential (primary) hypertension; I25.2 Old myocardial infarction; F17.200 Nicotine dependence, unspecified, uncomplicated; F15.90 Other stimulant use, unspecified, uncomplicated; Z79.899 Other long term (current) drug therapy; Z59.0 Homelessness
CPT/HCPCS: 99281

== ENCOUNTER 2020-11-02 05:35 | Emergency (ER) | payer OTHER ==
[~2020-11-02] VITALS: Ht 185.4 cm; Wt 72.6 kg
[2020-11-02 05:45] VITALS: BP 138/86
--- NOTE | 2020-11-02 05:45 | NUR ---
TO BED AMBULATORY
[2020-11-02 06:15] VITALS: BP 138/86
--- NOTE | 2020-11-02 06:15 | NUR ---
54 YO M BIB SELF WITH C/C OF R FOOT 12/24 PAIN D/T ABCESS UNDER FOOT. PT STATES HE HAS HAD IT FOR AWHILE BUT HAS GOTTEN WORSE OVER TIME. DESCRIBES PAIN NEEDLE-LIKE. PT STATES IT IS DIFFICULT TO WALK BUT FEELS BETTER IF HE DOESNT WALK ON IT. DENIES TAKING MEDICATION FOR PAIN. DENIES FEVER, CHILLS, N/D. HX: HERNIA RX: GERARD FAULKNER
[2020-11-02] MEDS ORDERED: CEPH500C16 PO (06:28)
[2020-11-02] MEDS ORDERED: IBUP-2213 PO (06:28)
[2020-11-02] MEDS ORDERED: cefTRIAXone 1,000 MG in LIDOCAINE MPF 1% 2.1 ML IM ONE (06:30)
[2020-11-02] MEDS ORDERED: KETOROLAC 60 MG/2 ML VIAL IM ONE (06:30)
--- NOTE | 2020-11-02 06:37 | NUR ---
FOOT CLEANSED AND BANDAGED.
[2020-11-02] MEDS ORDERED: cefTRIAXone 1,000 MG VIAL ONE (06:38)
[2020-11-02] MEDS ORDERED: LIDOCAINE MPF 1% 5 ML ONE (06:39)
--- NOTE | 2020-11-02 07:14 | NUR ---
REPORT GIVEN TO STEFANIE MCDONNELL. TRANSFER OF CARE AT THIS TIME.
--- NOTE | 2020-11-02 08:25 | NUR ---
Patient discharged with v/s stable. Written and verbal after care instructions given and explained. Patient alert, oriented and verbalized understanding of instructions. Ambulatory with steady gait. All questions addressed prior to discharge. ID band removed. Patient advised to follow up with PMD. Rx of Keflex and Ibuprofen given. Patient educated on indication of medication including possible reaction and side effects. Opportunity to ask questions provided and answered.
== END 2020-11-02 08:25 | disposition home or self-care (01) ==
LOC: MED 05:35
DX: L02.611 Cutaneous abscess of right foot (principal); E11.9 Type 2 diabetes mellitus without complications; I10 Essential (primary) hypertension; I25.2 Old myocardial infarction; Z79.899 Other long term (current) drug therapy; Z90.49 Acquired absence of other specified parts of digestive tract; Z98.890 Other specified postprocedural states
CPT/HCPCS: 96372; 99284; J0696; J1885; J2001

== ENCOUNTER 2020-11-12 00:14 | Inpatient (IN) | payer OTHER, SELFPAY ==
[~2020-11-12] VITALS: Ht 185.4 cm; Wt 72.6 kg
[~2020-11-12 00:14] MED LIST changes: +CEPH500C16 PO; +IBUP-2213 PO
[2020-11-12 00:20] VITALS: BP 133/88
[2020-11-12 01:12] LABS: BASOPHILS # (AUTO) 0.1 K/uL (0.00-0.22); BASOPHILS % (AUTO) 1.8 % (0.0-2.0); EOSINOPHILS # (AUTO) 0.2 K/uL (0-0.4); EOSINOPHILS % (AUTO) 2.4 % (0.0-4.0); HEMOGLOBIN 13.2 g/dL (12.0-18.0); LYMPHOCYTES # (AUTO) 2.3 K/uL (2.0-11.5); LYMPHOCYTES % (AUTO) 34.9 % (20.5-51.1); MEAN CORPUSCULAR HEMOGLOBIN 28 pg (27-31); MEAN CORPUSCULAR HGB CONC 32 g/dL (33-37); MEAN CORPUSCULAR VOLUME 86.8 fL (80-94); MONOCYTES # (AUTO) 0.6 K/uL (0.8-1.0); MONOCYTES % (AUTO) 8.6 % (1.7-9.3); NEUTROPHILS # (AUTO) 3.4 K/uL (1.8-7.7); NEUTROPHILS % (AUTO) 52.3 % (42.2-75.2); PLATELET COUNT (AUTO) 337 K/uL (140-450); RED BLOOD CELL COUNT(AUTO) 4.72 MIL/uL (4.20-6.10); RED CELL DISTRIBUTION WIDTH 13.5 % (11.6-13.7); WHITE BLOOD COUNT (AUTO) 6.5 K/uL (4.8-10.8)
[2020-11-12 01:36] LABS: ALBUMIN 3.2 g/dL (3.4-5.0); ANION GAP 9.6 (8-16); CREATININE 0.9 mg/dL (0.6-1.3); POTASSIUM 4.6 mmol/L (3.5-5.1); TOTAL BILIRUBIN 0.1 mg/dL (0.0-1.0)
[2020-11-12] MEDS ORDERED: HYDROcodone/APAP 10/325 MG 1 TAB TAB PO ONE (01:55)
[2020-11-12] MEDS ORDERED: VANCOMYCIN 1,500 MG in DEXTROSE 5% 250 ML IV ONE (01:55)
--- NOTE | 2020-11-12 01:56 | NUR ---
PT AMBULATED TO ER BED 06
[2020-11-12] MEDS ORDERED: VANCOMYCIN 1,000 MG VIAL ONE ×2 (02:05→02:14)
[2020-11-12] MEDS ORDERED: VANCOMYCIN 500 MG VIAL ONE (02:13)
--- NOTE | 2020-11-12 02:32 | NUR ---
RECEIVED A 54/M FROM [employer] WITH A C/O RIGHT FOOT PAIN S/P "WALKING A LOT" PT WAS AMBULATORY TO ED BED WITHOUT ANY INCIDENT. IN BED FOR EVAL.
--- NOTE | 2020-11-12 03:06 | NUR ---
CARE TRANSFERRED TO STEFANIE CALVERT.
--- NOTE | 2020-11-12 04:00 | NUR ---
Patient appears to be resting comfortably in bed. Vital Signs within normal limits. Respirations even and unlabored.
[2020-11-12] MEDS ORDERED: ONDANSETRON 4 MG/2 ML VIAL IVP PRN (04:10)
[2020-11-12] MEDS ORDERED: ACETAMINOPHEN 325 MG TAB PO PRN (04:10)
[2020-11-12] MEDS ORDERED: VANCOMYCIN PER PHARMACY MC PRN (04:10)
[2020-11-12] MEDS ORDERED: MORPHINE SULFATE 2 MG/ML SYR IVP PRN (04:10)
[2020-11-12] MEDS: NACL 0.9% 1,000 ML IV SCH ×3 (05:26→20:10)
--- NOTE | 2020-11-12 07:15 | NUR ---
REPORT GIVEN TO SUPA WATTS FOR CONRINUITY OF CARE
--- NOTE | 2020-11-12 07:16 | NUR ---
REPORT AND CONTINUATION OF CARE RECEIVED FROM STEFANIE CALVERT.
--- NOTE | 2020-11-12 07:18 | NUR ---
PATIENT RESTING IN BED, RR EVEN AND UNLABORED. VSS 142/99 72 HR. SKIN DRY AND INTACT. SWELLING AND REDNESS TO RIGHT FOOT NOTED.
--- NOTE | 2020-11-12 07:38 | NUR ---
RECEIVED REPORT FROM ER NURSE SUPA PATIENT IS 54 Y/O MALE WITH CC OF RIGHT FOOT [PAIN AND DIAGNOSIS OF OSTEOMYELITIS NO PAST MEDICAL HISTORY, PT IS ALERT, ON CCHO 60 DIET, SKIN INTACT, IV ON THE LEFT HAND GAUGE 22 RUNNING NS AT 125 MLS/HR, PT IS AMBULATORY, ON ROOM AIR, PATIENT WAS GIVEN VANCOMYCIN 1500 MG AND NORCO FOR PAIN AT 0200 TODAY. FOOT XRAY WAS DONE.
--- NOTE | 2020-11-12 07:43 | NUR ---
REPORT GIVEN TO STEFANIE PEREA MED SURG FOR ADMISSION.
--- NOTE | 2020-11-12 07:57 | NUR ---
Patient will be admitted to care of DR. IZQUIERDO. Admited to MED SURG. Will go to room 126 A. Belongings list completed. Report to STEFANIE PEREA.
[2020-11-12 08:05] VITALS: BP 155/88
--- NOTE | 2020-11-12 08:05 | NUR ---
PT CAME TO THE UNITS FROM ED VIA RACHAELREMERITA, DIRECTED PT TO THE ROOM CHANGED IN TO YELLOW GOWN, SOCKS GIVEN, CONNECTED TO THE IV, ALL SUPPLIES PROVIDED. TOOK VITALS BP 155/88, AL 62, 97% TEMP 98.2. FOOD PROVIDED, MRSA SAMPLE TAKEN. CALL LIGHT WITH IN REACH, SAFETY MEASURES IN PLACED. PT IS SLEEPING IN THE BED.
--- NOTE | 2020-11-12 11:37 | NUR ---
PT IS IN THE BED SLEEPING, IV NS IS RUNNING AT 125/ML PER HOUR NO SOB OR DISTRESS NOTED. PT DENIES FOOT PAIN. WILL CONTINUE TO MONITOR PT.
--- NOTE | 2020-11-12 12:44 | NUR ---
MADE ROUNDS PT IS SLEEPING AND PT ABLE TO FINISH LUNCH. NO DISTRESS NOTED. WILL CONTINUE TO MONITOR.
[2020-11-12] MEDS: VANCOMYCIN HCL 1.25 GM in DEXTROSE 5% 250 ML IV SCH (14:10)
--- NOTE | 2020-11-12 14:30 | NUR ---
PT RECEIVED VANCOMYCIN PER MD ORDER WILL CONTINUE TO MONITOR PT.
--- NOTE | 2020-11-12 15:35 | NUR ---
PT SEEN BY DOCTOR RECOMMENDED SOCIAL SERVICE,
[2020-11-12 16:05] VITALS: BP 131/91
--- NOTE | 2020-11-12 16:15 | NUR ---
INFORMED DOCTOR PAGAN AND DOCTOR WALKER FOR POSSIBLE OSTEO CONSULTATION.
--- NOTE | 2020-11-12 17:00 | NUR ---
PT IS SEEN BY DOCTOR PAGAN NO NEW ORDERS RECEIVED.
--- NOTE | 2020-11-12 19:32 | NUR ---
ENDORSED NIGHT NURSE FOR CONTINUITY OF CARE.
--- NOTE | 2020-11-12 19:52 | NUR ---
RECEIVED REPORT FROM DAYSIAFT NURSE FOR CONTINUITY OF CARE.
[2020-11-12 20:00] VITALS: BP 143/69
--- NOTE | 2020-11-12 22:09 | NUR ---
ALL SCHEDULED MEDS GIVEN, PT TOLERATED WELL. NO SIGNS OF DISTRESS. SAFETY MEASURES IMPLEMENTED
[2020-11-13] MEDS: NACL 0.9% 1,000 ML IV SCH ×3 (00:32→21:41)
[2020-11-13] MEDS: VANCOMYCIN HCL 1.25 GM in DEXTROSE 5% 250 ML IV SCH ×2 (03:17→15:50)
[2020-11-13 04:00] VITALS: BP 138/68
--- NOTE | 2020-11-13 04:00 | NUR ---
PATIENT RESTING ON BED, NO SIGNS OF DISTRESS. ON ROOM AIR, SAFETY MEASURES IMPLEMENTED.
[2020-11-13 06:03] LABS: ALBUMIN 2.9 g/dL (3.4-5.0); ANION GAP 8.3 (8-16); CARBON DIOXIDE 29.9 mmol/L (21-32); CREATININE 0.9 mg/dL (0.6-1.3); MAGNESIUM 1.7 mg/dL (1.8-2.4); POTASSIUM 4.2 mmol/L (3.5-5.1); TOTAL BILIRUBIN 0.3 mg/dL (0.0-1.0)
[2020-11-13 06:12] LABS: BASOPHILS # (AUTO) 0.1 K/uL (0.00-0.22); BASOPHILS % (AUTO) 2.2 % (0.0-2.0); EOSINOPHILS # (AUTO) 0.2 K/uL (0-0.4); EOSINOPHILS % (AUTO) 3.5 % (0.0-4.0); HEMATOCRIT 42.3 % (36-52); HEMOGLOBIN 13.9 g/dL (12.0-18.0); LYMPHOCYTES # (AUTO) 2.1 K/uL (2.0-11.5); LYMPHOCYTES % (AUTO) 38.3 % (20.5-51.1); MEAN CORPUSCULAR HEMOGLOBIN 28 pg (27-31); MEAN CORPUSCULAR HGB CONC 33 g/dL (33-37); MEAN CORPUSCULAR VOLUME 86.1 fL (80-94); MONOCYTES # (AUTO) 0.6 K/uL (0.8-1.0); MONOCYTES % (AUTO) 10.8 % (1.7-9.3); NEUTROPHILS # (AUTO) 2.5 K/uL (1.8-7.7); NEUTROPHILS % (AUTO) 45.2 % (42.2-75.2); PLATELET COUNT (AUTO) 326 K/uL (140-450); RED BLOOD CELL COUNT(AUTO) 4.91 MIL/uL (4.20-6.10); RED CELL DISTRIBUTION WIDTH 13.5 % (11.6-13.7); WHITE BLOOD COUNT (AUTO) 5.4 K/uL (4.8-10.8)
--- NOTE | 2020-11-13 07:43 | NUR ---
ENDORSE PT TO DAYSHIFT NURSE FOR CONTINUITY OF CARE. PT STABLE
--- NOTE | 2020-11-13 07:43 | NUR ---
RECEIVED BEDSIDE REPORT FROM TOLL OPERATOR NURSE SPRING, PT SLEEPING, NO DISTRESS NOTED, IV TO LEFT HAND 22G, PATENT INTACT, INFUSING WELL, PT ON ROOM AIR, NO SOB NOTED, SKIN INTACT, SCABS NOTED TO RIGHT FOOT, WITH SWELLING. INITIAL ASSESSMENT DONE, ALL SAFETY PRECAUTION MET, CALL LIGHT WITHIN REACH, WILL CONTINUE TO MONITOR.
[2020-11-13 08:00] VITALS: BP 144/93
--- NOTE | 2020-11-13 08:26 | NUR ---
PATIENT HAS BEEN SCREENED AND CATEGORIZED LOW NUTRITION RISK. PATIENT WILL BE SEEN WITHIN 7 DAYS OF ADMISSION. 11/18/[address]
--- NOTE | 2020-11-13 10:20 | NUR ---
PT SLEEPING, NO DISTRESS NOTED, CALL LIGHT WITHIN REACH, WILL CONTINUE TO MONITOR.
--- NOTE | 2020-11-13 11:14 | NUR ---
DC PLANNING: FAXED THE MRI ORDER TO [facility]. CM TO FOLLOW Addendum: 11/13/20 at 1153 by Kitty Corona RN DC PLANNING: CALLED [facility] WITH MICHI BENITEZ TO FAX IT TO [facility] IF [facility] HAS NO BED TO [place]. FAXED TO [facility] CM TO FOLLOW Addendum: 11/13/20 at 1707 by Kitty Corona RN DC PLANNING: RECEIVED A CALL FROM [facility] WITH MICHI BAILEY PROVIDE THE AUTH FOR [facility] [id number] AND FOR TRANSPORT [id number] CALLED [facility] ALYSSA MCMAHAN STATED THEY ARE BOOKED AND THE [employer] PHOTO MASK MAKER IS LEAVING AT 7:30 PM CALLED [facility] MRI SCHEDULE IT AT 11:00 AM .[facility] FOR 11/14/20 PRIMARY SUBSTANCE ABUSE COUNSELOR TIME BETWEEN 10:30 TO 11:00 AND WAIT AND RETURN . CM TO FOLLOW
--- NOTE | 2020-11-13 12:10 | NUR ---
MRI QUESTIONAIRE FILLED, PT STATED UNDERSTANDING, FORM SIGNED BY PT. NOTIFIED RUBBER PRESS TENDER.
--- NOTE | 2020-11-13 15:50 | NUR ---
DUE MEDICATIONS ADMINISTERE, PT TOLERATED WELL, NO DISTRESS NOTED, WILL CONTINUE TO MONITOR.
[2020-11-13 16:00] VITALS: BP 142/84
--- NOTE | 2020-11-13 17:30 | NUR ---
RECEIVED INFORMATION FROM PAYROLL ACCOUNTING SPECIALIST PT IS GOING TO MRI TOMORROW AT [facility] @ 11AM. WILL ENDORSE TO SPOOLER OPERATOR.
--- NOTE | 2020-11-13 19:21 | NUR ---
ENDORSED PT TO STATISTICAL MACHINE SERVICER NURSE SPRING WATTS FOR CONTINUOUS OF CARE.
--- NOTE | 2020-11-13 19:22 | NUR ---
RECEIVED REPORT FROM DAYSHIFT NURSE FOR CONTINUITY OF CARE. PT ON ROOM AIR, NO SIGNS OF DISTRESS.
[2020-11-13 20:00] VITALS: BP 125/71
--- NOTE | 2020-11-13 21:00 | NUR ---
ALL SCHEDULED MEDICATIONS GIVEN, PT TOLERATED WELL, NO SIGNS OF DISTRESS, PT ON ROOM AIR, SAFETY MEASURES IMPLEMENTED.
[2020-11-14 00:05] VITALS: BP 125/71
--- NOTE | 2020-11-14 01:21 | NUR ---
REPLACED IV SITE TO LAC/ PT TOLERATED WELL. PT ON ROOM AIR, NO SIGNS OF DISTRESS. SAFETY MEASURES IMPLEMENTED.
[2020-11-14] MEDS: VANCOMYCIN HCL 1.25 GM in DEXTROSE 5% 250 ML IV SCH ×2 (02:00→15:03)
--- NOTE | 2020-11-14 02:50 | NUR ---
PT ASLEEP NO SIGNS OF DISTRESS. ON ROOM AIR. SAFETY MEASURES IMPLEMENTED, CALL LIGHT WITHIN REACH.
[2020-11-14] MEDS: NACL 0.9% 1,000 ML IV SCH ×3 (03:16→21:42)
--- NOTE | 2020-11-14 07:24 | NUR ---
ENDORSE PT TO DAYSHIFT NURSE. PT ON STABLE CONDITION
[2020-11-14 08:00] VITALS: BP 128/83
[2020-11-14 08:33] LABS: BASOPHILS # (AUTO) 0.1 K/uL (0.00-0.22); BASOPHILS % (AUTO) 1.5 % (0.0-2.0); EOSINOPHILS # (AUTO) 0.2 K/uL (0-0.4); EOSINOPHILS % (AUTO) 3.2 % (0.0-4.0); HEMATOCRIT 43.7 % (36-52); HEMOGLOBIN 14.4 g/dL (12.0-18.0); LYMPHOCYTES # (AUTO) 1.8 K/uL (2.0-11.5); LYMPHOCYTES % (AUTO) 36.3 % (20.5-51.1); MEAN CORPUSCULAR HEMOGLOBIN 28 pg (27-31); MEAN CORPUSCULAR HGB CONC 33 g/dL (33-37); MONOCYTES # (AUTO) 0.5 K/uL (0.8-1.0); MONOCYTES % (AUTO) 11.1 % (1.7-9.3); NEUTROPHILS # (AUTO) 2.3 K/uL (1.8-7.7); NEUTROPHILS % (AUTO) 47.9 % (42.2-75.2); PLATELET COUNT (AUTO) 314 K/uL (140-450); RED BLOOD CELL COUNT(AUTO) 5.14 MIL/uL (4.20-6.10); RED CELL DISTRIBUTION WIDTH 13.4 % (11.6-13.7); WHITE BLOOD COUNT (AUTO) 4.9 K/uL (4.8-10.8)
--- NOTE | 2020-11-14 11:27 | NUR ---
PT PICKED UP BY [facility] TO GO TO MRI IN [facility].
--- NOTE | 2020-11-14 13:35 | NUR ---
PT CAME BACK FROM MRI, PT STABLE, NO DISTRESS NOTED, WILL CONTINUE TO MONITOR.
--- NOTE | 2020-11-14 15:03 | NUR ---
DUE MEDICATIONS ADMINISTERED, PT TOLERATED WELL, NO DISTRESS NOTED, WILL CONTINUE TO MONITOR.
[2020-11-14 16:00] VITALS: BP 133/87
--- NOTE | 2020-11-14 19:30 | NUR ---
ENDORSED PT TO TEAMCENTER SOLUTION ARCHITECT NURSE ALBERTO ONEIL, FOR CONTINUOUS OF CARE.
--- NOTE | 2020-11-14 19:32 | NUR ---
RECEIVED PT ON BED, AAOX4, DENIES PAIN TO RT FOOT, RT 3RD TOE AND PLANTAR SIDE OF THE FOOT IS SWOLLEN AND RED, INTACT SKIN, IVF INFUSING WELL, PLAN OF CARE DISCUSSED, SAFETY MEASURES IN PLACE, CALL LIGHT WITHIN REACH.
[2020-11-14 20:00] VITALS: BP 135/81
--- NOTE | 2020-11-14 22:00 | NUR ---
PT REQUESTING FOR SNACK, SANDWICH PROVIDED, TOLERATED WELL, DENIES ANY PAIN, IVF INFUSING WELL, MONITORED CLOSELY.
--- NOTE | 2020-11-14 22:34 | NUR ---
PT STILL AWAKE, MEDICATED PRN WITH ATIVAN PO FOR ANXIETY, MONITORED CLOSELY. Addendum: 11/14/20 at 2316 by Joseph Garza RN CHARTED ON WRONG PT
--- NOTE | 2020-11-15 01:40 | NUR ---
PT SLEEPING, NO SIGNS OF DISTRESS, IVF INFUSING WELL, MONITORED CLOSELY.
[2020-11-15] MEDS: VANCOMYCIN HCL 1.25 GM in DEXTROSE 5% 250 ML IV SCH ×2 (02:34→15:11)
[2020-11-15 04:00] VITALS: BP 123/67
--- NOTE | 2020-11-15 04:00 | NUR ---
PT SLEEPING, EASILY AROUSABLE, VITAL SIGNS STABLE, DENIES ANY PAIN, IVF INFUSING WELL, MONITORED CLOSELY.
[2020-11-15] MEDS: NACL 0.9% 1,000 ML IV SCH ×3 (04:10→20:10)
--- NOTE | 2020-11-15 06:00 | NUR ---
PT SLEEPING, NO SIGNS OF PAIN, IVF INFUSING WELL, MONITORED CLOSELY.
--- NOTE | 2020-11-15 07:43 | NUR ---
PT AWAKE, NO SIGNS OF DISTRESS, REPORT GIVEN TO STEFANIE FERRIS FOR CONTINUITY OF CARE.
[2020-11-15 08:00] VITALS: BP 130/84
--- NOTE | 2020-11-15 08:00 | NUR ---
NURSE REPORT REPORT OBTAINED FROM NIGHT NURSE SARAH AT 0743 AND THIS NURSE ASSUMED CARE OF PATIENT. VSS. AFEB. NO C/O PAIN OR DISCOMFORT. BREAKFAST TAKEN WELL. Addendum: 11/15/20 at 2046 by Agency 10 RN RN IV NS INFUSING INTO L AC AT 125 ML/HR. PATIENT VOIDING WELL YELLOW URINE.
--- NOTE | 2020-11-15 12:00 | NUR ---
NURSE CARE IV LEAKING, BUT CHECKED SITE AND PLACED ANOTHER TEGADERM. FLUSHED AND NOT LEAKING. MEALS TAKEN WELL. NO C/O PAIN OR DISCOMFORT. GET OOB TO USE BATHROOM. ABLE TO AMBULATE TO BATHROOM WITH STEADY GAIT.
--- NOTE | 2020-11-15 16:00 | NUR ---
NURSE CARE VSS. AFEB. IV VANCOMYCIN INFUSING WELL. NO C/O PAIN OR DISCOMFORT.
--- NOTE | 2020-11-15 19:15 | NUR ---
NURSE REPORT AND ENDORSEMENT REPORT GIVEN TO NIGHT NURSE ALBERTO TO ASSUME CARE CARE OF PATIENT. PT HAD C/O IV LEAKING AT 1900. IV REPORTED NEEDS TO BE RESTARTED. SBAR GIVEN TO NURSE AND ALL QUESTIONS ANSWERED. [place] ARGUETA
--- NOTE | 2020-11-15 19:16 | NUR ---
RECD. RESTING IN BED, AWAKE, A/OX4. RESPIRATION EVEN AND UNLABORED. IV PULLED OUT, WILL INSERT NEW IV LINE. RIGHT FOOT WITH REDNESS AND SWELLING. SAFETY MEASURES ENFORCED. BED IN THE LOWEST POSITION, CALL LIGHT IN REACH. DENIES PAIN 0/10. VERBALIZED PAIN COMES WHENEVER HE AMBULATES.
--- NOTE | 2020-11-15 21:30 | NUR ---
NEW IV LINE INSERTED BY ER NURSE AT THE LEFT FOREARM G20.
--- NOTE | 2020-11-15 22:00 | NUR ---
TEACHINGS ON TAKING GOOD CARE OF FEET GIVEN TO PATIENT. VERBALIZED UNDERSTANDING.
[2020-11-16] VITALS: BP 125/77
--- NOTE | 2020-11-16 | NUR ---
SLEEPING COMFORTABLY IN BED.
[2020-11-16] MEDS: VANCOMYCIN HCL 1.25 GM in DEXTROSE 5% 250 ML IV SCH ×2 (02:46→15:36)
--- NOTE | 2020-11-16 02:46 | NUR ---
STILL SLEEPING COMFORTABLY IN BED.IV VANCOMYCIN INFUSED BY STEFANIE SON.
--- NOTE | 2020-11-16 03:30 | NUR ---
IV ACCIDENTALLY DISCONNECTED FROM LINE BY PATIENT WHILE SLEEPING, GOWN AND BEDDINGS CHANGED DUE TO BLOOD ON THEM. CONNECTED PATIENT BACK TO IV MACHINE. INSTRUCTED TO BE CAREFUL NOT PULL IV AGAIN.
[2020-11-16] MEDS: NACL 0.9% 1,000 ML IV SCH ×2 (03:53→12:18)
[2020-11-16 04:00] VITALS: BP 138/81
--- NOTE | 2020-11-16 05:30 | NUR ---
STILL SLEEPING COMFORTABLY IN BED.
--- NOTE | 2020-11-16 07:30 | NUR ---
CONDITION REMAIN STABLE. ENDORSED TO AM SHIFT NURSE FOR CONTINUITY OF CARE.
--- NOTE | 2020-11-16 07:32 | NUR ---
RECEIVED REPORT FROM ROLLER BILLET MILL RN FOR CONTINUITY OF CARE. PATIENT IS IN BED RESTING. NO S/S OF DISTRESS. ALL SAFETY PRECAUTIONS IN PLACE.
[2020-11-16 08:00] VITALS: BP 137/84
--- NOTE | 2020-11-16 10:00 | NUR ---
CHECKED ON PATIENT. PATIENT IS STABLE. NO S/S OF DISTRESS. ALL SAFETY PRECAUTION IN PLACE. WILL CONTINUE TO MONITOR.
--- NOTE | 2020-11-16 12:05 | NUR ---
CHECKED ON PATIENT. PATIENT REMAINS IN BED RESTING. PT DENIES ANY PAIN. ALL SAFETY PRECAUTIONS IN PLACE. WILL CONTINUE TO MONITOR.
--- NOTE | 2020-11-16 14:30 | NUR ---
CHECKED ON PATIENT. PATIENT IS IN BED EATING. NO COMPLAINTS OF PAIN. ALL SAFETY PRECAUTIONS IN PLACE. WILL CONTINUE TO MONITOR.
[2020-11-16 16:00] VITALS: BP 135/80
[2020-11-16] MEDS ORDERED: SULF-58 PO (18:04)
--- NOTE | 2020-11-16 20:15 | NUR ---
RECEIVED PATIENT FROM NIGHT NURSER DUE TO CHANGE ASSIGNMENT. PATIENT IS A/A/O X4. RESPIRATORY EVEN AND UNLABORED, ON ROOM AIR, NO SIGN OF DISTRESS NOTED. SKIN WARM, DRY, NON DIAPHORETIC. IV ON LEFT FA 22G, INTACT AND PATENT, IS INFUSING FLUID ORDER. PATIENT DENIES ANY PAIN OR DISCOMFORT. ABLE TO MAKE NEED KNOWN. ASSESS PATIENT DISCHARGE LOCATION, PATIENT WISH DISCHARGE TO SELF, STATES "I WILL GO TO MY FRIEND'S HOUSE". PATIENT REFUSED TO DISCLOSE HIS FRIEND'S ADDRESS THAT HE WILL STAY. PATIENT STATES "I AM OK, I AM COOL". PLAN OF CARE DISCUSSED, PATIENT VERBALIZED UNDERSTANDING AND WISH TO HAVE BUS PASS FOR TRANSPORTATION. CALL LIGHT WITHIN REACH. WILL CONTINUE TO MONITOR.
[2020-11-16 20:23] VITALS: BP 121/68
--- NOTE | 2020-11-16 21:30 | NUR ---
ENDORSED BIRTH CERTIFICATE CLERK THAT PATIENT DISCHARGE'S PAPER IS READY. WAITING FOR PATIENT BUS PASS.
--- NOTE | 2020-11-16 23:00 | NUR ---
EDUCATE PATIENT DISCHARGE MEDICATION AND FOLLOW UP APPOINTMENT. HOMELESS RESOURCE PROVIDED. PATIENT VERBALIZED UNDERSTANDING. ARM BAND ARE REMOVED. REMOVED IV WITH CATHETER INTACT. PATIENT AMBULATE INDEPENDENTLY WITH STEADY GAIT DISCHARGE TO HIMSELF.
== END 2020-11-16 23:05 | disposition home or self-care (01) | DRG 344 ==
LOC: MED 00:14 → MTU 04:11 → MMU 04:47
PROVIDERS: ADMIT Hospitalist; ATTEND Hospitalist
PROC: 0HBMXZZ Excision of Right Foot Skin, External Approach (ICD-10-PCS; principal; 2020-11-14)
DX: M86.8X7 Other osteomyelitis, ankle and foot (principal); E44.0 Moderate protein-calorie malnutrition; F10.10 Alcohol abuse, uncomplicated; I10 Essential (primary) hypertension; Z20.822 Contact with and (suspected) exposure to COVID-19; M87.874 Other osteonecrosis, right foot; F19.10 Other psychoactive substance abuse, uncomplicated; L60.3 Nail dystrophy; S90.212A Contusion of left great toe with damage to nail, initial encounter; X58.XXXA Exposure to other specified factors, initial encounter; M85.80 Other specified disorders of bone density and structure, unspecified site; Z82.49 Family history of ischemic heart disease and other diseases of the circulatory system; Z79.899 Other long term (current) drug therapy; Z59.0 Homelessness; Z72.0 Tobacco use; Z68.21 Body mass index [BMI] 21.0-21.9, adult; Y93.89 Activity, other specified; Y92.89 Other specified places as the place of occurrence of the external cause; Y99.8 Other external cause status
CPT/HCPCS: 36415; 73630; 80053; 80202; 83735; 85025; 85651; 86140; 87081; 96365; 99285; J3370; J7060; Q0092

== ENCOUNTER 2020-11-30 21:58 | Emergency (ER) | payer OTHER, SELFPAY ==
[~2020-11-30 21:58] MED LIST changes: -CEPH500C16 PO; -IBUP-2213 PO; -QUET25TA46 PO; +SULF-58 PO
--- NOTE | 2020-11-30 22:10 | NUR ---
PATIENT CALLED TO TRIAGE NO RESPONSE PATIENT LEFT WITHOUT BEING SEEN BY DR. SARGENT. NO FURTHER CARE PROVIDED FOR PATIENT.
--- NOTE | 2020-11-30 22:20 | NUR ---
CALLED FOR THE SECOND TIME NO RESPONSE
--- NOTE | 2020-11-30 22:30 | NUR ---
CALLED FOR THIRD TIME , NO RESPONSE
== END 2020-11-30 22:10 | disposition left against medical advice (07) ==
LOC: MED 21:58
DX: M54.9 Dorsalgia, unspecified (principal); Z53.21 Procedure and treatment not carried out due to patient leaving prior to being seen by health care provider

== ENCOUNTER 2021-01-09 23:40 | Inpatient (IN) | payer OTHER, SELFPAY ==
[~2021-01-09] VITALS: Ht 185.4 cm; Wt 73.9 kg
[2021-01-09 23:51] VITALS: BP 138/96
--- NOTE | 2021-01-09 23:56 | NUR ---
patient to [facility] ambulatory
--- NOTE | 2021-01-10 00:56 | NUR ---
PT RETURN FROM [facility] TO [facility]
[2021-01-10] MEDS ORDERED: PIPERACILLIN/TAZOBACTAM 3.375 GM in DEXTROSE 5% 50 ML IV ONE (01:45)
[2021-01-10] MEDS ORDERED: VANCOMYCIN 1,000 MG in DEXTROSE 5% 250 ML IV ONE (01:45)
[2021-01-10 01:58] LABS: BASOPHILS # (AUTO) 0.1 K/uL (0.00-0.22); BASOPHILS % (AUTO) 1.1 % (0.0-2.0); EOSINOPHILS # (AUTO) 0.2 K/uL (0-0.4); EOSINOPHILS % (AUTO) 2.5 % (0.0-4.0); HEMATOCRIT 46.1 % (36-52); HEMOGLOBIN 15.2 g/dL (12.0-18.0); LYMPHOCYTES % (AUTO) 29.9 % (20.5-51.1); MEAN CORPUSCULAR HEMOGLOBIN 28 pg (27-31); MEAN CORPUSCULAR HGB CONC 33 g/dL (33-37); MEAN CORPUSCULAR VOLUME 85.4 fL (80-94); MONOCYTES # (AUTO) 0.5 K/uL (0.8-1.0); NEUTROPHILS # (AUTO) 3.9 K/uL (1.8-7.7); NEUTROPHILS % (AUTO) 58.5 % (42.2-75.2); PLATELET COUNT (AUTO) 293 K/uL (140-450); RED CELL DISTRIBUTION WIDTH 14.6 % (11.6-13.7); WHITE BLOOD COUNT (AUTO) 6.6 K/uL (4.8-10.8)
[2021-01-10 02:13] LABS: ALBUMIN 3.8 g/dL (3.4-5.0); ANION GAP 10.9 (8-16); CARBON DIOXIDE 29.2 mmol/L (21-32); CREATININE 0.8 mg/dL (0.6-1.3); POTASSIUM 4.1 mmol/L (3.5-5.1); TOTAL BILIRUBIN 0.2 mg/dL (0.0-1.0)
--- NOTE | 2021-01-10 02:14 | NUR ---
patient to bed 8 ambulatory and had patient change into gown
[2021-01-10] MEDS ORDERED: VANCOMYCIN 1,000 MG VIAL ONE (02:29)
[2021-01-10] MEDS ORDERED: PIPERACILLIN/TAZOBACTAM 3.375 GM VIAL IV ONE (02:30)
--- NOTE | 2021-01-10 03:05 | NUR ---
55 YO/M BIB SELF W C/P R FOOT SOLE PAIN 4/10 SHARP, NON-RADIATING, X1 WEEK PAIN OCCURS W MOVEMENT OR WALKING. PT DENIES ANY INJURY OR TRAUMA. NO FEVER, WOUNDS, SWELLING, WARMTH OR REDNESS. +SENSATION, CAP REFILL <3, +2 RADIAL PULSES, +ROM. VSS. PT LAYING IN BED LOCKED IN LOWEST POSITION W X2 SIDERAILS FOR PT SAFETY. BLANKET ON . BREATHING EVEN AND UNLABORED. NAD NOTED, WILL CONTINUE TO MONITOR. PMH:APPENDECOMY, KIDNEY STONE, HERNIAL REPAIR NKA
[2021-01-10] MEDS ORDERED: KCL 20 MEQ/WATER INJ PREMIX 200 ML IV PRN (03:30)
[2021-01-10] MEDS ORDERED: HYDROcodone/APAP 5/325 MG 1 TAB TAB PO PRN (03:30)
[2021-01-10] MEDS ORDERED: MORPHINE SULFATE 4 MG/ML SYR IVP PRN (03:30)
[2021-01-10] MEDS ORDERED: POTASSIUM CHLORIDE 10 MEQ TABER PO PRN (03:30)
[2021-01-10] MEDS ORDERED: MAGNESIUM OXIDE 400 MG TAB PO PRN (03:30)
[2021-01-10] MEDS ORDERED: MAG SULF 2000 MG/WATER PREMIX 50 ML IV PRN (03:30)
[2021-01-10] MEDS ORDERED: ACETAMINOPHEN 325 MG TAB PO PRN (03:30)
[2021-01-10] MEDS ORDERED: VANCOMYCIN PER PHARMACY MC PRN (03:30)
[2021-01-10] MEDS ORDERED: ONDANSETRON 4 MG/2 ML VIAL IVP PRN (03:30)
[2021-01-10] MEDS ORDERED: cefTRIAXone 1,000 MG VIAL ONE (04:36)
--- NOTE | 2021-01-10 05:06 | NUR ---
PT PROVIDED W FOOD AND DRINK PER REQUEST. ALL NEEDS MET THIS TIME.
--- NOTE | 2021-01-10 05:46 | NUR ---
report given to tammie fuller.
--- NOTE | 2021-01-10 05:49 | NUR ---
Patient will be admitted to care of DR ALFARO. Admited to MED/SURG. Will go to room 126 A. Belongings list completed. Report to ABDIAS BY STEFANIE BAILON.
--- NOTE | 2021-01-10 07:20 | NUR ---
RECEIVED PATIENT FROM TANK WAGON OPERATOR NURSE FOR CONTINUITY OF CARE. PATIENT IS RESTING IN BED, AROUSABLE TO VOICE, ALERT AND ORIENTED X4. RESPIRATORY EVEN AND UNLABORED, ON ROOM AIR. LUNG SOUND CLEAR TO AUSCULTATE. BOWEL SOUND ACTIVE TO 4 QUADRANTS, SOFT, NON DISTENDED. SKIN WARM, DRY, NON DIAPHORETIC. IV ON RIGHT AC 20G, AND LEFT FA 20G, INTACT AND PATENT, SALINE LOCK. PATIENT DENIES ANY PAIN DURING REST. ABLE TO FOLLOW COMMAND. ORIENT TO ROOM AND UNIT. PLAN OF CARE DISCUSSED, PATIENT VERBALIZED UNDERSTANDING. CALL LIGHT WITHIN REACH. WILL CONTINUE TO MONITOR.
[2021-01-10 08:00] VITALS: BP 134/84
[2021-01-10] MEDS ORDERED: DOCUSATE SODIUM 100 MG GELCAP PO SCH (09:00)
--- NOTE | 2021-01-10 09:09 | NUR ---
SCHEDULE MEDICATIONS GIVEN WITH EDUCATION. PATIENT VERBALIZED UNDERSTANDING. MRSA COLLECTED. PATIENT TOLERATED WELL. CALL LIGHT WITHIN REACH. WILL CONTINUE TO MONITOR.
--- NOTE | 2021-01-10 11:00 | NUR ---
PATIENT IS SLEEPING, CHEST RISE AND FALL NOTED. AROUSABLE TO VOICE, NO SIGN OF DISTRESS NOTED. CALL LIGHT WITHIN REACH. WILL CONTINUE TO MONITOR.
[2021-01-10] MEDS ORDERED: ACET-1182 PO (11:02)
[2021-01-10] MEDS ORDERED: PIPERACILLIN/TAZOBACTAM 3.375 GM in DEXTROSE 5% 50 ML IV SCH (13:00)
[2021-01-10] MEDS ORDERED: VANCOMYCIN 1,000 MG in DEXTROSE 5% 250 ML IV SCH (13:00)
--- NOTE | 2021-01-10 13:29 | NUR ---
PATIENT HAS BEEN SCREENED AND CATEGORIZED LOW NUTRITION RISK. PATIENT WILL BE SEEN WITHIN 7 DAYS OF ADMISSION. 01/16/[address]
[2021-01-10 13:56] VITALS: BP 146/87
--- NOTE | 2021-01-10 14:00 | NUR ---
PATIENT IS AWAKE, RESTING IN BED, NO SIGN OF DISTRESS NOTED. DISCHARGE EDUCATION GIVEN, PATIENT VERBALIZED UNDERSTANDING. PATIENT REQUEST BUS PASS AND CLOTHES, WILL PROVIDE.
--- NOTE | 2021-01-10 14:27 | NUR ---
DC PLANNING: THE PATIENT ADMITTED THROUGH THE ER WITH RIGHT THIRD TOE PAIN, FOOT XRAY SUSPICIOUS FOR OSTEOMYELITIS. THE PATIENT WAS EVALUATED BY PODIATRY, OSTEO RULED OUT, RECOMMENDATION IS TO F/U OP WITH PODIATRY AND TO WEAR THE POST OP SHOES THAT HAVE BEEN GIVEN TO HIM ON THIS ADMISSION AND OTHER. CM SPOKE WITH THE PATIENT AT BEDSIDE, THE PATIENT STATES THAT HE'S HOMELESS BUT HAS BEEN STAYING WITH A FRIEND FOR THE PAST MONTH AND SOMETIMES STAYS WITH ONE OF HIS BROTHERS. 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 HE HAS NOT APPLIED FOR UNEMPLOYMENT, GR OR FOOD STAMPS AND HAS NO INCOME SOURCE. HE STATES THAT HE HAS NO PHYSICAL DISABILITY OR HISTORY OF MENTAL HEALTH ISSUES. ALSO STATES HE HAS A NEW CELL PHONE BUT DOES NOT KNOW THE NUMBER, HE ALSO CAN'T REMEMBER THE ADDRESS OF HIS FRIEND BUT STATES HE CAN GET THERE IF GIVEN A BUS PASS. THE PATIENT STATES THAT HE WILL RETURN TO HIS FRIENDS HOUSE WHEN HE IS DISCHARGED, CM ASKED IF HE WOULD LIKE A RESOURCE LIST WITH SHELTERS AND OTHER RESOURCES, HE DECLINED. CM ENCOURAGED HIM TO FOLLOW UP WITH THE AUTO CLUB TRAVEL COUNSELOR POST DISCHARGE THIS HAS BEEN THE RECOMMENDATION IN THE PAST AND TO WEAR HIS POST OP SHOES, HE STATES THAT HE WILL. THE PATIENT DOES HAVE A PCP THROUGH HIS INSURANCE BUT HAS NEVER SEEN HIM AND CAN'T REMEMBER HIS NAME, CM ENCOURAGED HIM TO LOOK AT HIS [facility] CARD WHICH WILL HAVE THE NAME AND PHONE NUMBER OF HIS ASSIGNED PCP. DC PLAN IS FOR THE PATIENT TO BE PROVIDED WITH PANTS PER HIS REQUEST AND A BUS PASS TO RETURN TO HIS FRIENDS HOME. [facility] WILL FOLLOW FOR NEEDS. Addendum: 01/10/21 at 1715 by Ofelia Dunne CM PATIENT IS A 55-YEAR-OLD MALE ADMITTED ON THE [facility]/ED ON 01/10/2021. TERRAZZO SUPERVISOR MET WITH PATIENT AT BEDSIDE TO DISCUSS AND COLLECT HIS COLLATERAL INFORMATION. PATIENT STATED THAT HE CURRENTLY HOMELESS HOWEVER HE HAS BEEN STAYING IN DIFFERENT PLACES, THE MOST RECENT ONE IS AT HIS FRIEND'S THEE ADAMS'S HOME IN [facility]. PER PATIENT HE IS NOT INTERESTED ON GETTING ADVANCE DIRECTIVES AND RESOURCES PROVIDED BY [facility]. PATIENT REPORTED HAVING NO ISSUES GETTING AND TAKING HIS PRESCRIBED MEDICATIONS. PATIENT ALSO REPORTED BEEN ABLE TO AMBULATE INDEPENDENTLY WITH OUT ANY ASSISTANCE AND NOT NEEDING OR HAVING ANY DME, PER PATIENT HIS FRIEND THEE ADAMS IS HIS EMERGENCY CONTACT. PER PATIENT HE HAS A PRIMARY MD. HÉCTOR DENNY SELECTED BY HIS [facility] INS. BUT HE HAS NOT YET GOT HIS FIRS VISIT WITH MD LALA INFORMED PATIENT THAT [facility] WILL BE SETTING UP A FOLLOW UP APPOINTMENT WITH HIS PCP WITHIN THE 7 DAYS AFTER PATIENT DISCHARGE FROM [facility]. PATIENT DISAGREED AND REFUSED STATED THAT HE WILL DO THE CALL HIMSELF AFTER HIS DISCHARGE AND THANK THIS SCI[employer] IMMUNOLOGY FOR INFORMATION PROVIDED ABOUT HOMELESS RESOURCES. PER PATIENT HIS FRIEND WILL BE ASSISTING WITH TRANSPORTATION AFTER HE IS DC FROM [facility]. [facility] WILL FOLLOW UP WITH PATIENT NEEDED.
--- NOTE | 2021-01-10 15:00 | NUR ---
IV WERE REMOVED, BLEEDING CONTROL. ID BAND WERE REMOVED. MEAL PACKAGE GIVEN. NO SIGN OF DISTRESS NOTED. PATIENT IS READY TO DISCHARGE TO SELF.
--- NOTE | 2021-01-10 15:20 | NUR ---
PATIENT AMBULATES TO DISCHARGE TO SELF. A/A/O X4. RESPIRATORY EVEN AND UNLABORED, NO SIGN OF DISTRESS NOTED.
== END 2021-01-10 15:10 | disposition home or self-care (01) | DRG 775 ==
LOC: MED 23:40 → MMU 01-10 03:34
PROVIDERS: ADMIT Student in an Organized Health Care Education/Training Program; ATTEND Student in an Organized Health Care Education/Training Program
DX: F10.10 Alcohol abuse, uncomplicated (principal); F17.210 Nicotine dependence, cigarettes, uncomplicated; M19.071 Primary osteoarthritis, right ankle and foot; Y90.9 Presence of alcohol in blood, level not specified; Z20.822 Contact with and (suspected) exposure to COVID-19
CPT/HCPCS: 36415; 73630; 80053; 83605; 85025; 87040; 87081; 99285; J0696; J1644; J2543; J3370; J7060

== ENCOUNTER 2021-03-05 01:59 | Emergency (ER) | payer OTHER, SELFPAY ==
[~2021-03-05] VITALS: Ht 185.4 cm; Wt 75.0 kg
[~2021-03-05 01:59] MED LIST changes: +ACET-1182 PO; -SULF-58 PO
[2021-03-05 02:15] VITALS: BP 153/82
--- NOTE | 2021-03-05 02:29 | NUR ---
PT IN LOBBY
--- NOTE | 2021-03-05 02:30 | NUR ---
55 yo m BIB SELF WITH C/C OF 2/10 RIGHT FOOT PAIN, PT HAS A SMALL BUMP JUST BELOW 2ND TOE. DENIES INJURIES. SITE DOES NOT APPEAR RED. HARD ON PALPATION. DENIES HX, RX AND ALLERG
[2021-03-05] MEDS ORDERED: KETOROLAC 30 MG/ML VIAL IM ONE (04:45)
[2021-03-05 04:55] VITALS: BP 149/78
== END 2021-03-05 04:55 | disposition home or self-care (01) ==
LOC: MED 01:59
DX: M79.671 Pain in right foot (principal); I51.9 Heart disease, unspecified; F17.210 Nicotine dependence, cigarettes, uncomplicated
CPT/HCPCS: 73620; 96372; 99283; J1885

== ENCOUNTER 2021-03-28 23:15 | Emergency (ER) | payer OTHER ==
[~2021-03-28] VITALS: Ht 185.4 cm; Wt 74.8 kg
[2021-03-29 01:01] VITALS: BP 137/73
[2021-03-29] MEDS ORDERED: IBUPROFEN 800 MG TAB ONE (01:07)
[2021-03-29] MEDS ORDERED: IBUPROFEN 800 MG TAB PO ONE (01:10)
[2021-03-29 01:14] VITALS: BP 137/73
== END 2021-03-29 01:14 | disposition home or self-care (01) ==
LOC: MED 23:15
DX: F29 Unspecified psychosis not due to a substance or known physiological condition (principal); I51.9 Heart disease, unspecified
CPT/HCPCS: 99282

== ENCOUNTER 2021-05-05 01:13 | Emergency (ER) | payer OTHER ==
[~2021-05-05] VITALS: Ht 185.4 cm; Wt 74.8 kg
[2021-05-05 01:24] VITALS: BP 148/83
--- NOTE | 2021-05-05 01:29 | NUR ---
PT IS ETOH.
--- NOTE | 2021-05-05 02:18 | NUR ---
RETURN FROM CT AT THIS TIME
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
[2021-05-05] MEDS: MORPHINE SULFATE 4 MG/ML SYR IM ONE (03:18)
--- NOTE | 2021-05-05 05:31 | NUR ---
CALLED [facility] TO POSSIBLY SET UP TRANSFER FOR HIGHER LEVEL OF CARE AND TOLD THEY WOULD CALL BACK
[2021-05-05 06:35] LABS: BASOPHILS # (AUTO) 0.1 K/uL (0.00-0.22); BASOPHILS % (AUTO) 1.2 % (0.0-2.0); EOSINOPHILS # (AUTO) 0.1 K/uL (0-0.4); EOSINOPHILS % (AUTO) 0.9 % (0.0-4.0); HEMATOCRIT 41.1 % (36-52); HEMOGLOBIN 13.9 g/dL (12.0-18.0); LYMPHOCYTES # (AUTO) 1.9 K/uL (2.0-11.5); LYMPHOCYTES % (AUTO) 28.6 % (20.5-51.1); MEAN CORPUSCULAR HEMOGLOBIN 28 pg (27-31); MEAN CORPUSCULAR HGB CONC 34 g/dL (33-37); MEAN CORPUSCULAR VOLUME 83.4 fL (80-94); MONOCYTES # (AUTO) 0.5 K/uL (0.8-1.0); MONOCYTES % (AUTO) 7.2 % (1.7-9.3); NEUTROPHILS % (AUTO) 62.1 % (42.2-75.2); PLATELET COUNT (AUTO) 256 K/uL (140-450); RED BLOOD CELL COUNT(AUTO) 4.93 MIL/uL (4.20-6.10); RED CELL DISTRIBUTION WIDTH 13.9 % (11.6-13.7); WHITE BLOOD COUNT (AUTO) 6.5 K/uL (4.8-10.8)
--- NOTE | 2021-05-05 06:51 | NUR ---
[facility] ACCPTED ER TRANSFER AND [facility]SEET FAXED TO [facility]
--- NOTE | 2021-05-05 06:52 | NUR ---
[facility] CALLED AND GIVEN 1 HOUR ETA FOR TRANSPORT
[2021-05-05 06:54] LABS: ANION GAP 11.9 (8-16); CARBON DIOXIDE 25.9 mmol/L (21-32); CREATININE 0.8 mg/dL (0.6-1.3); POTASSIUM 3.8 mmol/L (3.5-5.1)
--- NOTE | 2021-05-05 07:15 | NUR ---
REPORT GIVEN TO RAT FARMER AT [facility] AT [facility] TIME. ADVISED OF [facility] JEFFERY
--- NOTE | 2021-05-05 07:16 | NUR ---
REPORT RECEIVED FROM STEFANIE NGUYEN FOR TRANSFER OF CARE
[2021-05-05 07:55] VITALS: BP 144/81
--- NOTE | 2021-05-05 07:57 | NUR ---
[facility] TRANSPORATION AT PATIENT BEDSIDE
--- NOTE | 2021-05-05 07:57 | NUR ---
Patient to be transferred to [facility]. Is being transferred due to HIGHER LEVEL OF CARE. Receiving facility has accepting physician and available space. ER physician has signed transfer form. Patient or responsible constitution party has agreed to transfer and signed form. Patient belongings inventoried and will be sent with patient. Copy of nursing notes, lab reports, EKG, Physicians Orders and X-rays to be sent with patient. Report called to PHOTO MANAGER at receiving facility. [facility] ambulance service has been called for transfer. ETA is 1750.
== END 2021-05-05 07:46 | disposition short-term general hospital (02) ==
LOC: MED 01:13
DX: S02.40EA Zygomatic fracture, right side, initial encounter for closed fracture (principal); I51.9 Heart disease, unspecified; Y08.89XA Assault by other specified means, initial encounter; Y93.89 Activity, other specified; F17.210 Nicotine dependence, cigarettes, uncomplicated; Y92.89 Other specified places as the place of occurrence of the external cause; Y99.8 Other external cause status
CPT/HCPCS: 36415; 70450; 70486; 80048; 85025; 96372; 99285; J2270

== ENCOUNTER 2021-05-12 22:53 | Emergency (ER) | payer OTHER ==
[~2021-05-12] VITALS: Ht 185.4 cm; Wt 68.0 kg
[2021-05-12 23:29] VITALS: BP 135/76
[2021-05-13 06:41] VITALS: BP 108/72
== END 2021-05-13 06:43 | disposition home or self-care (01) ==
LOC: MED 22:53
DX: S92.411A Displaced fracture of proximal phalanx of right great toe, initial encounter for closed fracture (principal); L84 Corns and callosities; I25.2 Old myocardial infarction; E11.9 Type 2 diabetes mellitus without complications; F17.210 Nicotine dependence, cigarettes, uncomplicated; Z90.49 Acquired absence of other specified parts of digestive tract; Z79.899 Other long term (current) drug therapy; Y08.89XA Assault by other specified means, initial encounter; Y93.89 Activity, other specified; Y92.89 Other specified places as the place of occurrence of the external cause; Y99.8 Other external cause status
CPT/HCPCS: 73630; 99283; Q0092

== ENCOUNTER 2021-06-23 20:40 | Emergency (ER) | payer OTHER ==
[~2021-06-23] VITALS: Ht 185.4 cm; Wt 72.6 kg
[2021-06-23 21:43] VITALS: BP 140/97
--- NOTE | 2021-06-23 21:50 | NUR ---
PT TAKEN TO BED 12.
--- NOTE | 2021-06-23 23:05 | NUR ---
RECEIVED VERBAL ORDER TO PO CHALLENGE PT. PT GIVEN APPLE JUICE.
--- NOTE | 2021-06-24 | NUR ---
PT HAS NOT VOMITTED SINCE PO CHALLENGE, YAMILETH TINOCO MADE AWARE.
--- NOTE | 2021-06-24 00:42 | NUR ---
55 Y/O MALE BIBS, C/O ABD PAIN X1HR. PT REPORTS N/V. DENIES DIARRHEA, FEVER, AND BLOOD IN EMESIS. 10/10 PAIN AT THIS TIME.
--- NOTE | 2021-06-24 00:43 | NUR ---
PT IS CURRENTLY RESTING COMFORTABLY IN BED. BED IN LOWEST SETTING WITH BOTH RAILS UP AND HOB RAISED.
[2021-06-24 01:33] VITALS: BP 132/94
--- NOTE | 2021-06-24 01:35 | NUR ---
Patient discharged with v/s stable. Written and verbal after care instructions given and explained. Patient verbalized understanding. Ambulatory with steady gait. All questions addressed prior to discharge. Advised to follow up with PMD. VSS, A/OX4, AMBULATORY, UNLABORED BREATHING, AND CALM DEMEANOR.
== END 2021-06-24 01:35 | disposition home or self-care (01) ==
LOC: MED 20:40
DX: R10.84 Generalized abdominal pain (principal); R11.2 Nausea with vomiting, unspecified; Z90.49 Acquired absence of other specified parts of digestive tract; Z59.00 Homelessness unspecified
CPT/HCPCS: 99281

== ENCOUNTER 2021-07-28 23:47 | Emergency (ER) | payer OTHER ==
[~2021-07-28] VITALS: Ht 185.4 cm; Wt 72.6 kg
[2021-07-28 23:55] VITALS: BP 141/95
--- NOTE | 2021-07-29 00:03 | NUR ---
patient to bed 9
[2021-07-29] MEDS ORDERED: IBUPROFEN 800 MG TAB PO ONE (00:15)
--- NOTE | 2021-07-29 00:24 | NUR ---
55 Y/O MALE BIBS, C/O PAIN TO RIGHT FOOT X1 MONTH. PT STATES HE IS HOMELESS AND WALKS A LOT. NO TRAUMA, DEFORMITY, SWELLING, OR BRUISING. CMS INTACT. PT IS AMBULATORY, UNLABORED BREATHING. A/OX4, GCS-15. PT SEATED IN BED WITH HOB RAISED, BED IN LOWEST SETTING, AND RAIL UP X1. SX: KIDNEY STONE, HERNIA, APPENDECTOMY NKA
[2021-07-29 00:38] VITALS: BP 141/95
--- NOTE | 2021-07-29 00:39 | NUR ---
Patient discharged with v/s stable. Written and verbal after care instructions given and explained. Patient verbalized understanding. Ambulatory with steady gait. All questions addressed prior to discharge. Advised to follow up with PMD. VSS, A/OX4, AMBULATORY, UNLABORED BREATHING, AND CALM DEMEANOR. PT PROVIDED WITH HOMELESS PACKET, DENIED TRANSPORTATION, AND RECIEVED MEAL. PT DRESSED APPROPRIATELY.
== END 2021-07-29 00:39 | disposition home or self-care (01) ==
LOC: MED 23:47
DX: M79.671 Pain in right foot (principal); I25.2 Old myocardial infarction; Z79.899 Other long term (current) drug therapy
CPT/HCPCS: 99282

== ENCOUNTER 2021-08-31 03:49 | Emergency (ER) | payer OTHER ==
[~2021-08-31] VITALS: Ht 185.4 cm; Wt 72.6 kg
[2021-08-31 03:51] VITALS: BP 138/74
[2021-08-31 04:45] VITALS: BP 138/74
== END 2021-08-31 04:45 | disposition home or self-care (01) ==
LOC: MED 03:49
DX: Z00.00 Encounter for general adult medical examination without abnormal findings (principal); I25.2 Old myocardial infarction; Z79.899 Other long term (current) drug therapy
CPT/HCPCS: 99281

== ENCOUNTER 2021-09-03 06:12 | Emergency (ER) | payer OTHER ==
[~2021-09-03] VITALS: Ht 185.4 cm; Wt 72.6 kg
[2021-09-03 06:14] VITALS: BP 141/94
--- NOTE | 2021-09-03 06:14 | NUR ---
BIBA TAKEN TO BED #9
--- NOTE | 2021-09-03 06:21 | NUR ---
DR COLLINS AT BEDSIDE EXAMINING PT
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
--- NOTE | 2021-09-03 06:30 | NUR ---
TO CT VIA [facility]
--- NOTE | 2021-09-03 06:41 | NUR ---
RETURNED FROM CT
--- NOTE | 2021-09-03 07:45 | NUR ---
ATTEMPTED TO CLEAN BLOOD OF PT FACE, PT DENIED TO DUE TO PAIN.
[2021-09-03] MEDS ORDERED: ACETAMINOPHEN EXTRA STRENGTH 500 MG TAB PO ONE (07:50)
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
--- NOTE | 2021-09-03 08:50 | NUR ---
PT SWABBED FOR COVID(NADIR) . HANDED TO LAB
--- NOTE | 2021-09-03 08:55 | NUR ---
RAD AT BEDSIDE
[2021-09-03 09:04] LABS: BASOPHILS # (AUTO) 0.1 K/uL (0.00-0.22); BASOPHILS % (AUTO) 1.6 % (0.0-2.0); EOSINOPHILS # (AUTO) 0.1 K/uL (0-0.4); EOSINOPHILS % (AUTO) 2.4 % (0.0-4.0); HEMOGLOBIN 15.6 g/dL (12.0-18.0); LYMPHOCYTES # (AUTO) 2.3 K/uL (2.0-11.5); LYMPHOCYTES % (AUTO) 41.1 % (20.5-51.1); MEAN CORPUSCULAR HEMOGLOBIN 28 pg (27-31); MEAN CORPUSCULAR HGB CONC 33 g/dL (33-37); MEAN CORPUSCULAR VOLUME 84.7 fL (80-94); MONOCYTES # (AUTO) 0.6 K/uL (0.8-1.0); MONOCYTES % (AUTO) 10.1 % (1.7-9.3); NEUTROPHILS # (AUTO) 2.5 K/uL (1.8-7.7); NEUTROPHILS % (AUTO) 44.8 % (42.2-75.2); PLATELET COUNT (AUTO) 232 K/uL (140-450); RED BLOOD CELL COUNT(AUTO) 5.55 MIL/uL (4.20-6.10); RED CELL DISTRIBUTION WIDTH 13.9 % (11.6-13.7); WHITE BLOOD COUNT (AUTO) 5.5 K/uL (4.8-10.8)
[2021-09-03 09:17] LABS: PROTHROMBIN TIME 10.6 secs (10.8-13.4)
[2021-09-03 09:25] LABS: ANION GAP 13.2 (8-16); CARBON DIOXIDE 24.7 mmol/L (21-32); CREATININE 0.9 mg/dL (0.6-1.3); POTASSIUM 3.9 mmol/L (3.5-5.1); TOTAL BILIRUBIN 0.5 mg/dL (0.0-1.0)
--- NOTE | 2021-09-03 09:31 | NUR ---
CALLED [facility] AT 0930 TO GIVE REPORT. REPORT GIVEN TO CHARGE NURSE PITO WATTS . ALL QUESTIONS ANSWERED
[2021-09-03 10:02] VITALS: BP 155/92
--- NOTE | 2021-09-03 10:03 | NUR ---
[facility] AT BEDSIDE FOR TRANSPORT
--- NOTE | 2021-09-03 10:04 | NUR ---
Patient to be transferred to [facility]. Is being transferred due to HIGHER LEVEL OF CARE. Receiving facility has accepting physician and available space. ER physician has signed transfer form. Patient or responsible green party has agreed to transfer and signed form. Patient belongings inventoried and will be sent with patient. Copy of nursing notes, lab reports, EKG, Physicians Orders and X-rays to be sent with patient. Report called to PITO WATTS BY JASVIR ONEIL at receiving facility. [facility] ambulance service has been called for transfer. ETA is 45.
== END 2021-09-03 10:05 | disposition short-term general hospital (02) ==
LOC: MED 06:12
DX: S12.000A Unspecified displaced fracture of first cervical vertebra, initial encounter for closed fracture (principal); Z20.822 Contact with and (suspected) exposure to COVID-19; S12.300A Unspecified displaced fracture of fourth cervical vertebra, initial encounter for closed fracture; S01.21XA Laceration without foreign body of nose, initial encounter; I25.2 Old myocardial infarction; Z79.899 Other long term (current) drug therapy; W01.0XXA Fall on same level from slipping, tripping and stumbling without subsequent striking against object, initial encounter; Y92.89 Other specified places as the place of occurrence of the external cause; Y93.89 Activity, other specified; Y99.8 Other external cause status
CPT/HCPCS: 36415; 70450; 70486; 71045; 72125; 80053; 85025; 85610; 85730; 86886; 86900; 86901; 99291; 99292

== ENCOUNTER 2021-09-13 03:32 | Emergency (ER) | payer OTHER ==
[~2021-09-13] VITALS: Ht 185.4 cm; Wt 73.5 kg
[2021-09-13 03:44] VITALS: BP 155/105
--- NOTE | 2021-09-13 03:49 | NUR ---
Patient ambulated to bed 2.
--- NOTE | 2021-09-13 03:58 | NUR ---
DR. FOSTER AT BEDSIDE EVALUATING PT.
[2021-09-13] MEDS ORDERED: SALI1ADH TP (04:07)
== END 2021-09-13 04:20 | disposition home or self-care (01) ==
LOC: MED 03:32
DX: L84 Corns and callosities (principal); I25.2 Old myocardial infarction; Z79.899 Other long term (current) drug therapy; Z90.49 Acquired absence of other specified parts of digestive tract; Z59.00 Homelessness unspecified
CPT/HCPCS: 99281

== ENCOUNTER 2021-10-03 05:42 | Emergency (ER) | payer OTHER ==
[~2021-10-03] VITALS: Ht 170.2 cm; Wt 70.8 kg
[~2021-10-03 05:42] MED LIST changes: +SALI1ADH TP
[2021-10-03 05:45] VITALS: BP 134/94
--- NOTE | 2021-10-03 07:20 | NUR ---
BIBA C/O N/V & CHEST PAIN AFTER DRINKING MILK XTODAY. SKIN IS PINK/WARM/DRY; AAOX4 WITH EVEN AND STEADY GAIT; LUNGS CLEAR BL; HR EVEN AND REGULAR; PT DENIES ANY FEVER, CP, SOB, OR COUGH AT THIS TIME; PATIENT STATES PAIN OF 2/10 AT THIS TIME.
--- NOTE | 2021-10-03 07:33 | NUR ---
ekg at triage room.
--- NOTE | 2021-10-03 07:51 | NUR ---
PATIENT LEFT WITHOUT BEING SEEN BY DR. LACKEY. NO FURTHER CARE PROVIDED FOR PATIENT.
[2021-10-03] MEDS ORDERED: ONDA8TAB87 PO (08:19)
[2021-10-03] MEDS ORDERED: IBUP-2213 PO (08:19)
[2021-10-03 08:29] VITALS: BP 133/94
--- NOTE | 2021-10-03 08:29 | NUR ---
Patient discharged with v/s stable. Written and verbal after care instructions given and explained. Patient alert, oriented and verbalized understanding of instructions. Ambulatory with steady gait. All questions addressed prior to discharge. ID band removed. Patient advised to follow up with PMD. Rx of ZOFRAN & IBUPROFEN given. Patient educated on indication of medication including possible reaction and side effects. Opportunity to ask questions provided and answered.
== END 2021-10-03 08:29 | disposition home or self-care (01) ==
LOC: MED 05:42
DX: R11.2 Nausea with vomiting, unspecified (principal); R07.9 Chest pain, unspecified; R06.02 Shortness of breath; F17.200 Nicotine dependence, unspecified, uncomplicated; F15.90 Other stimulant use, unspecified, uncomplicated; I25.2 Old myocardial infarction; Z79.899 Other long term (current) drug therapy; Z98.890 Other specified postprocedural states
CPT/HCPCS: 93005; 99283

== ENCOUNTER 2021-10-05 21:42 | Emergency (ER) | payer OTHER ==
[~2021-10-05] VITALS: Ht 177.8 cm; Wt 73.5 kg
[~2021-10-05 21:42] MED LIST changes: +IBUP-2213 PO; +ONDA8TAB87 PO
[2021-10-05 21:48] VITALS: BP 134/93
[2021-10-06] MEDS ORDERED: KETOROLAC 60 MG/2 ML VIAL IM ONE (02:40)
--- NOTE | 2021-10-06 03:59 | NUR ---
PER MD ORDER, A HARD ORTHOPEDIC SHOE WAS PLACED ON THE PTS LEFT FOOT. +CMS BEFORE/AFTER. PT DID NOT COMPLAIN OF ANY PAIN OR DICOMFORT. ERMD NOTIFIED.
[2021-10-06] MEDS ORDERED: IBUP-2213 PO (05:13)
[2021-10-06] MEDS ORDERED: KETOROLAC 30 MG/ML VIAL ONE (05:39)
[2021-10-06 05:50] VITALS: BP 134/93
== END 2021-10-06 05:50 | disposition home or self-care (01) ==
LOC: MED 21:42
DX: S92.342A Displaced fracture of fourth metatarsal bone, left foot, initial encounter for closed fracture (principal); I25.2 Old myocardial infarction; Z79.899 Other long term (current) drug therapy; X58.XXXA Exposure to other specified factors, initial encounter; Y93.89 Activity, other specified; Y92.89 Other specified places as the place of occurrence of the external cause; Y99.8 Other external cause status
CPT/HCPCS: 73660; 96372; 99283; J1885

== ENCOUNTER 2021-10-14 06:44 | Emergency (ER) | payer OTHER ==
[~2021-10-14] VITALS: Ht 177.8 cm; Wt 72.6 kg
[2021-10-14 06:45] VITALS: BP 107/78
--- NOTE | 2021-10-14 06:52 | NUR ---
Patient arrived at 06.[address] Rivas examining patient at bedside.
--- NOTE | 2021-10-14 07:00 | NUR ---
PATIENT AGITATED AND HELD DOWN BY STAFF FOR BLOOD DRAW AND IV START. ASSESSED BY MD. POSSIBLE OVERDOSE ON FENT.
--- NOTE | 2021-10-14 07:19 | NUR ---
HANDOFF GIVEN TO PRASHANT WATTS WHO HAS ASSUMED CARE AT THIS TIME
--- NOTE | 2021-10-14 07:20 | NUR ---
Pt report received from STEFANIE Canchola. Transfer of care at this time.
--- NOTE | 2021-10-14 08:35 | NUR ---
lab at bedside
[2021-10-14] MEDS ORDERED: CALCIUM GLUCONATE 10% 1,000 MG in NACL 0.9% 50 ML IV ONE (09:10)
[2021-10-14] MEDS ORDERED: NACL 0.9% 1,000 ML IV ONE (09:10)
[2021-10-14 09:54] LABS: ALBUMIN 3.7 g/dL (3.4-5.0); ANION GAP 12.7 (8-16); CARBON DIOXIDE 26.2 mmol/L (21-32); CREATININE 1.1 mg/dL (0.6-1.3); POTASSIUM 3.9 mmol/L (3.5-5.1); TOTAL BILIRUBIN 0.5 mg/dL (0.0-1.0)
[2021-10-14 11:13] LABS: SALICYLATE < 2.8 mg/dL (2.8-20.0)
[2021-10-14 11:14] LABS: ACETAMINOPHEN < 0.5 ug/ml (10-30)
[2021-10-14 11:33] LABS: BASOPHILS # (AUTO) 0.1 K/uL (0.00-0.22); BASOPHILS % (AUTO) 0.8 % (0.0-2.0); EOSINOPHILS % (AUTO) 0.5 % (0.0-4.0); HEMATOCRIT 46.4 % (36-52); HEMOGLOBIN 15.3 g/dL (12.0-18.0); LYMPHOCYTES # (AUTO) 1.4 K/uL (2.0-11.5); LYMPHOCYTES % (AUTO) 20.9 % (20.5-51.1); MEAN CORPUSCULAR HEMOGLOBIN 28 pg (27-31); MEAN CORPUSCULAR HGB CONC 33 g/dL (33-37); MEAN CORPUSCULAR VOLUME 85.2 fL (80-94); MONOCYTES # (AUTO) 0.6 K/uL (0.8-1.0); MONOCYTES % (AUTO) 8.3 % (1.7-9.3); NEUTROPHILS # (AUTO) 4.8 K/uL (1.8-7.7); NEUTROPHILS % (AUTO) 69.5 % (42.2-75.2); PLATELET COUNT (AUTO) 274 K/uL (140-450); RED BLOOD CELL COUNT(AUTO) 5.45 MIL/uL (4.20-6.10); WHITE BLOOD COUNT (AUTO) 6.9 K/uL (4.8-10.8)
[2021-10-14 12:10] VITALS: BP 144/91
== END 2021-10-14 12:10 | disposition home or self-care (01) ==
LOC: MED 06:44
DX: R41.82 Altered mental status, unspecified (principal); F11.129 Opioid abuse with intoxication, unspecified; Z98.890 Other specified postprocedural states
CPT/HCPCS: 36415; 80053; 84484; 85025; 93005; 96360; 99291; 99292; G0480; G0482; J7030

== ENCOUNTER 2021-10-17 03:44 | Emergency (ER) | payer OTHER ==
[~2021-10-17] VITALS: Ht 185.4 cm; Wt 74.8 kg
[2021-10-17 03:52] VITALS: BP 138/88
--- NOTE | 2021-10-17 04:01 | NUR ---
Provided Sanwiches, T-shirt and socks.
--- NOTE | 2021-10-17 04:36 | NUR ---
Patient went to restroom.
--- NOTE | 2021-10-17 05:14 | NUR ---
Dr. Weems examining patient.
[2021-10-17 05:25] VITALS: BP 134/77
== END 2021-10-17 05:25 | disposition home or self-care (01) ==
LOC: MED 03:44
DX: M79.671 Pain in right foot (principal); I25.2 Old myocardial infarction; Z00.00 Encounter for general adult medical examination without abnormal findings; Z79.899 Other long term (current) drug therapy
CPT/HCPCS: 99281

== ENCOUNTER 2021-11-24 04:04 | Emergency (ER) | payer OTHER ==
[~2021-11-24] VITALS: Ht 185.4 cm; Wt 74.8 kg
[2021-11-24 04:07] VITALS: BP 143/89
--- NOTE | 2021-11-24 04:10 | NUR ---
pt to lobby.
[2021-11-24 05:48] VITALS: BP 143/89
== END 2021-11-24 05:48 | disposition home or self-care (01) ==
LOC: MED 04:04
DX: S93.401A Sprain of unspecified ligament of right ankle, initial encounter (principal); I25.10 Atherosclerotic heart disease of native coronary artery without angina pectoris; F17.210 Nicotine dependence, cigarettes, uncomplicated; F12.90 Cannabis use, unspecified, uncomplicated; X58.XXXA Exposure to other specified factors, initial encounter; Y93.89 Activity, other specified; Y92.89 Other specified places as the place of occurrence of the external cause; Y99.8 Other external cause status
CPT/HCPCS: 99282

== ENCOUNTER 2021-12-09 16:09 | Inpatient (IN) | payer OTHER ==
[~2021-12-09] VITALS: Ht 175.3 cm; Wt 73.9 kg
--- NOTE | 2021-12-09 16:09 | NUR ---
[facility] TO ER BED 4
[2021-12-09 16:17] VITALS: BP 104/65
--- NOTE | 2021-12-09 16:22 | NUR ---
[place] [facility] AT BEDSIDE
[2021-12-09] MEDS ORDERED: NACL 0.9% 1,000 ML IV ONE ×2 (16:25→17:40)
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
[2021-12-09] MEDS ORDERED: NALOXONE 0.4 MG/ML VIAL IVP ONE ×2 (16:45→23:55)
[2021-12-09 16:48] LABS: BASOPHILS # (AUTO) 0.1 K/uL (0.00-0.22); EOSINOPHILS # (AUTO) 0.1 K/uL (0-0.4); EOSINOPHILS % (AUTO) 1.7 % (0.0-4.0); HEMATOCRIT 40.8 % (36-52); HEMOGLOBIN 13.3 g/dL (12.0-18.0); LYMPHOCYTES # (AUTO) 1.7 K/uL (2.0-11.5); LYMPHOCYTES % (AUTO) 29.6 % (20.5-51.1); MEAN CORPUSCULAR HEMOGLOBIN 28 pg (27-31); MEAN CORPUSCULAR HGB CONC 33 g/dL (33-37); MEAN CORPUSCULAR VOLUME 86.6 fL (80-94); MONOCYTES # (AUTO) 0.5 K/uL (0.8-1.0); MONOCYTES % (AUTO) 7.9 % (1.7-9.3); NEUTROPHILS # (AUTO) 3.5 K/uL (1.8-7.7); NEUTROPHILS % (AUTO) 59.8 % (42.2-75.2); PLATELET COUNT (AUTO) 230 K/uL (140-450); RED BLOOD CELL COUNT(AUTO) 4.72 MIL/uL (4.20-6.10); RED CELL DISTRIBUTION WIDTH 13.9 % (11.6-13.7); WHITE BLOOD COUNT (AUTO) 5.8 K/uL (4.8-10.8)
[2021-12-09 17:10] LABS: ANION GAP 12.5 (8-16); CARBON DIOXIDE 26.9 mmol/L (21-32); CREATININE 1.1 mg/dL (0.6-1.3); POTASSIUM 3.4 mmol/L (3.5-5.1)
[2021-12-09] MEDS ORDERED: NALOXONE PFS 2 MG/2 ML SYR ONE (17:16)
--- NOTE | 2021-12-09 17:17 | NUR ---
ADMINISTERED 2 MG NARCAN OVER 25 MINS AGO, NO CHANGE IS [facility], PUPILS STILL PINPOINT RR 9. DR TURPIN AWARE.
[2021-12-09] MEDS ORDERED: NALOXONE PFS 2 MG/2 ML SYR IVP ONE ×3 (17:20→23:05)
--- NOTE | 2021-12-09 17:34 | NUR ---
2ND DOSE OF NARCAN, NO RESPONSE
[2021-12-09 17:40] LABS: ACETAMINOPHEN < 0.5 ug/ml (10-30); SALICYLATE < 2.8 mg/dL (2.8-20.0)
--- NOTE | 2021-12-09 17:43 | NUR ---
PT OPENS EYES TO PAIN
--- NOTE | 2021-12-09 18:22 | NUR ---
# 14 FR Urinary catheter inserted utilizing sterile technique. Immediate return of 100 ml [ CLEAR YELLOW urine noted. Urine sample collected and sent to lab. Pt tolerated procedure WELL.
--- NOTE | 2021-12-09 18:38 | NUR ---
URINE HANDED TO [employer] TECH
[2021-12-09 18:52] LABS: BARBITURATE, URINE NEGATIVE ng/ml (NEG <=200); BENZODIAZEPINE, URINE NEGATIVE ng/mL (NEG <=200); CANNABINOID, URINE POSITIVE ng/mL (NEG <=50); COCAINE, URINE NEGATIVE ng/mL (NEG <=300); OPIATE, URINE NEGATIVE ng/mL (NEG <=2000); PHENCYCLIDINE SCREEN,URINE NEGATIVE ng/mL (NEG <=25)
--- NOTE | 2021-12-09 19:10 | NUR ---
Pt report given to PUNEET WATTS. Transfer of care at this time.
--- NOTE | 2021-12-09 19:25 | NUR ---
RECEIVED PT S/P RECEIVNG 18.5 MG OF NARCAN. AT PRESENT PT IS ASLEEP W/ RESP OF 10-12. OTHER VS WNL.
[2021-12-09] MEDS ORDERED: NALOXONE 0.4 MG/ML VIAL ONE (23:08)
--- NOTE | 2021-12-09 23:14 | NUR ---
PLACED PT ON 15L NRB
--- NOTE | 2021-12-09 23:17 | NUR ---
NARCAN 0.8 MG IVP GIVEN. PT CONT. IN A DEEP SLEEP W/ PO2 AT 100% ON A NON-REBREATHER MASK, RESP LABILE @ 9, HR 73, BP 128/87. MD AWARE AND AT BEDSIDE, PENDING NEW ORDERS FOR ICU ADMIT.
[2021-12-10] VITALS (7 sets, daily range): BP systolic 128–147; BP diastolic 69–83
--- NOTE | 2021-12-10 | NUR ---
PT PENDING ICU ADMISSION FOR ALT. MENTAL STATUS/ DRUG OVERDOSE.
[2021-12-10] MEDS: DEXT 5% /NACL 0.9% 1,000 ML IV SCH ×2 (00:46→10:01)
[2021-12-10] MEDS: NALOXONE 0.4 MG/ML VIAL IVP PRN ×3 (03:20→10:00)
--- NOTE | 2021-12-10 03:20 | NUR ---
Narcan 0.4mg IVP GIVEN FOR RESP DEPRESSION.
[2021-12-10 04:56] LABS: BASOPHILS # (AUTO) 0.1 K/uL (0.00-0.22); BASOPHILS % (AUTO) 1.1 % (0.0-2.0); EOSINOPHILS # (AUTO) 0.1 K/uL (0-0.4); EOSINOPHILS % (AUTO) 1.8 % (0.0-4.0); HEMOGLOBIN 12.9 g/dL (12.0-18.0); LYMPHOCYTES # (AUTO) 1.8 K/uL (2.0-11.5); LYMPHOCYTES % (AUTO) 28.7 % (20.5-51.1); MEAN CORPUSCULAR HEMOGLOBIN 28 pg (27-31); MEAN CORPUSCULAR HGB CONC 32 g/dL (33-37); MEAN CORPUSCULAR VOLUME 87.6 fL (80-94); MONOCYTES # (AUTO) 0.5 K/uL (0.8-1.0); MONOCYTES % (AUTO) 8.5 % (1.7-9.3); NEUTROPHILS # (AUTO) 3.8 K/uL (1.8-7.7); NEUTROPHILS % (AUTO) 59.9 % (42.2-75.2); PLATELET COUNT (AUTO) 227 K/uL (140-450); RED BLOOD CELL COUNT(AUTO) 4.57 MIL/uL (4.20-6.10); RED CELL DISTRIBUTION WIDTH 13.8 % (11.6-13.7); WHITE BLOOD COUNT (AUTO) 6.3 K/uL (4.8-10.8)
[2021-12-10 05:23] LABS: ANION GAP 10.2 (8-16); CARBON DIOXIDE 27.2 mmol/L (21-32); CREATININE 0.8 mg/dL (0.6-1.3); POTASSIUM 4.4 mmol/L (3.5-5.1); TOTAL BILIRUBIN 0.3 mg/dL (0.0-1.0)
--- NOTE | 2021-12-10 06:00 | NUR ---
PT CONT. ON A NON-REBREATHER MASK, RESP RATE NOW 10-15. PENDING ADMISSION TRANSFER TO ICU BED #3 ON AM SHIFT.
--- NOTE | 2021-12-10 06:20 | NUR ---
PT ADMITTED TO ICU BED #3. PT FOR TRANSFER AFTER THE START OF AM SHIFT. RESTING QUIETLY NO S/S OF DISTRESS, RESPITATIONS CONT. TO SHOW IMPROVEMENT AT 10-15 RATE/MIN, PT ALSO W/ OCCASIONAL NON-PRODUCTIVE COUGH, NON-REBREATHER MASK IN USE. WILL CONT. SAFETY OBSERVATION ROUNDS
--- NOTE | 2021-12-10 07:40 | NUR ---
Patient will be admitted to care of Juan Antonio DE DIOS. Admitted to ICU. Will go to room 3. Belongings list completed. Report to Niki WATTS.
--- NOTE | 2021-12-10 07:47 | NUR ---
RECEIVED BEDSIDE REPORT FROM AAYUSH WHITFIELD RN FOR CONTINUITY OF CARE. PT A&OX0, BRIEFLY OPENED EYES WITH TURNING. DOES NOT OPEN EYES TO VOICE OR PAINFUL STIMULI. 15L NONREBREATHER SATTING 100%, INTERMITTENT APNEA. SR ON MONITOR. NO EDEMA NOTED. 20G IV TO RAC, 18G TO R HAND, AND 18G TO L WRIST ALL SALINE LOCK. NPO. MODERATE WEAKNESS THROUGHOUT. SKIN INTACT. STANDARD PRECAUTION. CALL LIGHT WITHIN REACH, BED IN LOWEST POSITION. ALL BELONGINGS WITH PT INCLUDING SHOES, SHIRT, JEANS, COINS, AND GLASS SMOKING PIPE FOUND IN POCKET OF MORIS FELL ONTO FLOOR AND BROKE. CLEANED PIECES OFF FLOOR AND DISCARDED.
--- NOTE | 2021-12-10 07:49 | NUR ---
Pt report given to Niki WATTS. Transfer of care at this time.
[2021-12-10] MEDS: ENOXAPARIN 40 MG/0.4 ML SYR SUBQ SCH (08:36)
[2021-12-10] MEDS: FAMOTIDINE 20 MG/2 ML VIAL IV SCH ×2 (10:01→21:42)
--- NOTE | 2021-12-10 10:30 | NUR ---
PT MORE AWAKE/ALERT AT THIS TIME. A&OX4, ABLE TO ANSWER QUESTIONS APPROPRIATELY. DENIES PAIN.
--- NOTE | 2021-12-10 10:35 | NUR ---
SEEN AND EXAMINED BY DR. VIVAR.
--- NOTE | 2021-12-10 10:46 | NUR ---
SEEN AND EXAMINED BY DR. PERRY.
--- NOTE | 2021-12-10 13:34 | NUR ---
PT. WITH LOW MONICA SCALE AT HIGH RISK, CONTINUE TO FOLLOW PRESSURE INJURY PREVENTION INTERVENTIONS. -POSITIONING: TURN AND REPOSITION PATIENT Q 2H OR SOONER USE PILLOWS TO KEEP BONY PROMINENCES FROM DIRECT CONTACT WITH SURFACES USE REPOSITIONING WEDGES TO PROVIDE 30-DEGREE ANGLE FOR SIDE LYING POSITIONS OFFLOADING OR FOAM DRESSING TO ALL TUBING TO PREVENT MEDICAL DEVICES RELATED PRESSURE INJURY -RE-EVALUATING AND MANAGING INCONTINENCE MONITOR SKIN CONDITION DURING POSITION CHANGE DO NOT MASSAGE REDNESS, BONY PROMINENCES FREQUENT DONAVAN-CARE AND PROVIDE BARRIER CREAMS PRN IF SOILING MOISTURE CONTROL BY OFFER BED IRAHETA/URINAL /ABSORBENT PAD TO WICK AND HOLD MOISTURE KEEP SKIN DRY AND PROTECT FROM FRICTION -MANAGE FRICTION/SHEAR/MOBILITY KEEP HOB AT THE LOWEST LEVEL OF ELEVATION NO MORE THAN 30 DEGREE UNLESS OTHERWISE CONTRAINDICATED USE LIFT SHEET OR TRANSFER DEVICE TO MOVE PATIENT AND PREVENT LATERAL SHEER. PROTECT HEELS, ELBOWS BONY PROMINENCES WITH SKIN BERRIES OR FOAM DRESSING IF EXPOSED TO FRICTION OFFLOAD BILATERAL HEELS BY PLACING PILLOWS UNDER CALVES AT ALL TIMES, UNLESS OTHERWISE CONTRAINDICATED -PRESSURE REDISTRIBUTION SURFACE THERAPY ANDREEA ISOFLEX MATTRESS -NUTRITION: PLEASE FOLLOW RD RECOMMENDATIONS AND OFFER NUTRITION SUPPLEMENTS IF ORDERED. PLEASE CONTACT WOUND CARE NURSE FOR ANY QUESTION AND CHANGE OF WOUND CONDITION.
--- NOTE | 2021-12-10 14:10 | NUR ---
SEEN AND EXAMINED BY DR. KHAN. ORDERS RECEIVED.
[2021-12-10] MEDS: PIPERACILLIN/TAZOBACTAM 3.375 GM in DEXTROSE 5% 50 ML IV SCH ×2 (14:54→18:49)
--- NOTE | 2021-12-10 17:30 | NUR ---
BLADDER SCAN REVEALED 800ML->999ML OF URINE. PERFORMED STRAIGHT CATH WITH STERILE TECHNIQUE, WHICH DRAINED 1,000ML OF CLEAR, ORANGE URINE.
--- NOTE | 2021-12-10 18:33 | NUR ---
SEEN AND EVALUATED BY SPEECH THERAPY. LISSET FOR PUREE DIET AND THIN LIQUIDS. ST ADVISED TO GIVE LIQUIDS AFTER FOOD. Addendum: 12/10/21 at 1901 by Dori Trinidad RN NEEDS 1:1 FEEDER
--- NOTE | 2021-12-10 19:25 | NUR ---
pt saturating 98% ON 2L NASAL CANNULA, REMOVED CANNULA AT THIS TIME, PT IS STII SATURATING 97% ON ROOM AIR, RN AWARE
--- NOTE | 2021-12-10 19:34 | NUR ---
ENDORSED BEDSIDE REPORT TO AIDEN CHOKE SETTER RN FOR CONTINUITY OF CARE.
--- NOTE | 2021-12-10 19:50 | NUR ---
TRANSFERRED PT. TO TELEMETRY 107B AT 1950. REPORT GIVEN TO STEFANIE KIRAN FOR CONTINUITY OF CARE.
[2021-12-10] MEDS: LORazepam 2 MG/ML VIAL IVP PRN (21:41)
[2021-12-11] VITALS: BP 130/85
[2021-12-11] MEDS: PIPERACILLIN/TAZOBACTAM 3.375 GM in DEXTROSE 5% 50 ML IV SCH ×5 (00:30→23:15)
--- NOTE | 2021-12-11 00:58 | NUR ---
PATIENT TO ROOM 107-B AT 2049 PATIENT ALERT BUT AGITATED AT TIMES. ON MONITOR SINUS.HAS 02 ON 3 LITERS N/C SAT 92% PATIENT HAS TWO 20 GA IN RIGHT ARM USING IV IN RIGHT HAND. PATIENT GIVEN ATIVAN 1 MG IVP 2144. PATIENT TO SLEEP. HUNG 29 ZOSYN 3.375 GM. PATIENT LUNGS DIMINISH SAT 94%. NO SIGNS OF SOB OR SIGNS OF DISTRESS. PATIENT CAME FROM I.C[facility]U. BY AIDEN WATTS. REPORT GAVE TO ME FROM AIDEN.
[2021-12-11 04:00] VITALS: BP 125/80
--- NOTE | 2021-12-11 06:32 | NUR ---
IN AN OUT 0600 750CC OF URINE CHARGE NURSE TEXT DR.ATIF. MILLER NO TEXT BACK. PATIENT WAS IN AN OUT ON DAYS IN I.C.U GOT OUT 1 LITER.
[2021-12-11 07:16] LABS: BASOPHILS # (AUTO) 0.1 K/uL (0.00-0.22); BASOPHILS % (AUTO) 0.7 % (0.0-2.0); EOSINOPHILS # (AUTO) 0.1 K/uL (0-0.4); EOSINOPHILS % (AUTO) 0.4 % (0.0-4.0); HEMATOCRIT 38.8 % (36-52); HEMOGLOBIN 12.8 g/dL (12.0-18.0); LYMPHOCYTES # (AUTO) 1.9 K/uL (2.0-11.5); LYMPHOCYTES % (AUTO) 14.8 % (20.5-51.1); MEAN CORPUSCULAR HEMOGLOBIN 28 pg (27-31); MEAN CORPUSCULAR HGB CONC 33 g/dL (33-37); MEAN CORPUSCULAR VOLUME 86.3 fL (80-94); MONOCYTES # (AUTO) 0.9 K/uL (0.8-1.0); NEUTROPHILS # (AUTO) 9.8 K/uL (1.8-7.7); NEUTROPHILS % (AUTO) 77.1 % (42.2-75.2); PLATELET COUNT (AUTO) 243 K/uL (140-450); RED BLOOD CELL COUNT(AUTO) 4.49 MIL/uL (4.20-6.10); RED CELL DISTRIBUTION WIDTH 13.4 % (11.6-13.7); WHITE BLOOD COUNT (AUTO) 12.8 K/uL (4.8-10.8)
[2021-12-11 07:26] LABS: ANION GAP 8.8 (8-16); CREATININE 0.7 mg/dL (0.6-1.3); POTASSIUM 3.8 mmol/L (3.5-5.1)
--- NOTE | 2021-12-11 07:30 | NUR ---
RECEIVED REPORT FROM NIGHTSHIFT NURSE KIRAN FOR CONTINUITY OF CARE. PT IS IN STABLE CONDITION. PT IS CURRENTLY SLEEPING, WITH NO S/S OF DISTRESS. PT IS ON NASAL CANULA 3L, WITH UNLABORED BREATHING. PER SURVEYING CREW RODMAN, PT WAS STRAIGHT CATHED DUE TO RETENTION OF URINE AND DRIBBLING OF URINE A RESULT. WILL CONTINUE TO MONITOR PTS OUTPUTS.
[2021-12-11 07:38] LABS: MAGNESIUM 1.7 mg/dL (1.8-2.4); PHOSPHORUS 2.8 mg/dL (2.5-4.9)
--- NOTE | 2021-12-11 07:50 | NUR ---
PER NIGHTSHIFT NURSE IRIS, IVF NOT GIVEN BECAUSE ICU NURSE REPORTED TO HER IVF WAS DISCONTINUED. NO ORDER FOR DISCONTINUATION NOTED.
[2021-12-11 08:00] VITALS: BP 130/81
[2021-12-11] MEDS: DEXT 5% /NACL 0.9% 1,000 ML IV SCH ×2 (08:00→15:50)
[2021-12-11] MEDS: FAMOTIDINE 20 MG/2 ML VIAL IV SCH ×2 (08:46→21:35)
[2021-12-11] MEDS: ENOXAPARIN 40 MG/0.4 ML SYR SUBQ SCH (08:50)
--- NOTE | 2021-12-11 09:00 | NUR ---
PT CURRENTLY SLEEPING, NO SIGNS OF PAIN OR DISTRESS NOTED AT THIS TIME.
--- NOTE | 2021-12-11 09:50 | NUR ---
PATIENT HAS BEEN SCREENED AND CATEGORIZED HIGH NUTRITION RISK. PATIENT WILL BE SEEN WITHIN 1-2 DAYS OF ADMISSION. 12/11/21 RECEIVED CONSULT FOR MONICA Hunt OR SETH LYNCH [address]
--- NOTE | 2021-12-11 10:45 | NUR ---
DR. ALFARO IN TO SEE PT. NEW ORDERS FOR DC TO SNF. PT DOWNGRADED TO MED/SURG LEVEL OF CARE. TELE BOX REMOVED.
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
--- NOTE | 2021-12-11 12:00 | NUR ---
DISCHARGE PLANNING SW ATTEMPTED TO MEET WITH PATIENT TO DISCUSS AND COLLECT HIS COLLATERAL INFORMATION PATIENT WAS NOT AWAKE REGARDLESS OF SEVERAL ATTEMPT FROM SW TO WAKE PATIENT UP HE DID NOT RESPOND. SW LEFT THE ROOM AND WILL CONTINUE TO ATTEMPT IN ANOTHER TIME. SW WILL FOLLOW UP NEEDED. Addendum: 12/14/21 at 1716 by Ofelia Dunne SS DISCHARGE PLANNING SW ATTEMPTED TO MEET WITH PATIENT AGAIN FOR THE 3RD TIME TO DISCUSS AND COLLECT SOME OF HIS COLLATERAL INFORMATION PATIENT WAS NOT AWAKE AND SW ATTEMPTED TO WAKE PATIENT UP HE DID NOT RESPOND. SW LEFT THE ROOM AND WILL FOLLOW UP NEEDED. SPIKE ATTEMPTED TO CALL AGAIN COLETTE MOSS - FROM [employer] [facility] AND THE [facility] [employer] AT AND . NO RESPONSE IN NEITHER CALL AND SPIKE LEFT HIM ANOTHER DETAIL MS WITH A REQUEST FOR A CALL BACK SW WILL FOLLOW UP NEEDED.
--- NOTE | 2021-12-11 12:00 | NUR ---
PT CURRENTLY SLEEPING, NO SIGNS OF PAIN OR DISTRESS NOTED AT THIS TIME.
[2021-12-11] MEDS ORDERED: MAG SULF 2000 MG/WATER PREMIX 50 ML IV SCH (12:55)
[2021-12-11] MEDS ORDERED: POTASSIUM CHLORIDE 10 MEQ TABER PO SCH (12:55)
--- NOTE | 2021-12-11 13:16 | NUR ---
DR. HERRERA TO SEE PT. NEW ORDERS FOR PELVIC/ABD ULTRASOUND TO TEST FOR POSS BPH. PER RADIOLOGY, PT MUST BE NPO FOR 6HRS FOR ABDOMINAL U/S. PT CURRENTLY EATING, WILL PERFORM LATER TONIGHT.
[2021-12-11] MEDS: TAMSULOSIN 0.4 MG CAP PO SCH (13:36)
--- NOTE | 2021-12-11 14:00 | NUR ---
PT CURRENTLY SLEEPING, NO SIGNS OF PAIN OR DISTRESS NOTED AT THIS TIME.
--- NOTE | 2021-12-11 15:16 | NUR ---
CM Clinicals faxed to [facility] .
--- NOTE | 2021-12-11 15:28 | NUR ---
12/11/21 RD INITIAL ASSESSMENT COMPLETED PLEASE REFER TO NUTRITION ASSESSMENT UNDER CARE ACTIVITY FOR ESTIMATED NUTRITIONAL NEEDS. 1. CONTINUE PUREE DIET AND [facility] TID TOLERATED -HEALTHSHAKES TID WILL PROVIDE 600 KCAL AND 21G OF PROTEINS DAILY. 2. RD WILL CONTINUE TO MONITOR PO INTAKE 3. RD TO FOLLOW-UP 3-5 DAYS, MODERATE RISK REVIEWED BY JENAE LYNCH RD
[2021-12-11 16:00] VITALS: BP 119/74
--- NOTE | 2021-12-11 16:01 | NUR ---
CM Clinicals faxed to [facility] .
--- NOTE | 2021-12-11 16:16 | NUR ---
P.T. NOTES P.T. EVAL COMPLETED; REFER TO EVAL FOR DETAILS.
--- NOTE | 2021-12-11 16:30 | NUR ---
TUNG MENDOZA REPORTED 1X VOID FOR SHIFT. BLADDER SCAN REVEALED 670ML OF URINE IN BLADDER. NOTIFIED DR. ALFARO, NEW ORDER FOR ALVARADO CATHETER GIVEN. URINE FLASH NOTED, ALVARADO TO GRAVITY.
--- NOTE | 2021-12-11 18:50 | NUR ---
WOODWORKING MACHINE OFFBEARER AT THE BEDSIDE, PT CURRENTLY SLEEPING, NO SIGNS OF PAIN OR DISTRESS NOTED AT THIS TIME.
--- NOTE | 2021-12-11 19:10 | NUR ---
ENDORSED PT TO NIGHTSHIFT NURSE TANISHA FOR CONTINUITY OF CARE. PT IN STABLE CONDITION.
--- NOTE | 2021-12-11 19:11 | NUR ---
RECEIVED SHIFT REPORT FROM ETHAN WATTS . PATIENT WAS LETHARGIC DURING SHIFT REPORT. PATIENT WAS HAVING THE ULTRASOUND DONE AT BEDSIDE. PATIENT WAS BREATHING ON THREE LITERS OF OXYGEN VIA NASAL CANULA. CHEST WAS NOTED RISING AND FALLING WITHOUT INCIDENT. PATIENT NOTED S/S OF PAIN/DISCOMFORT AT THIS TIME. PATIENT HAS CALL LIGHT WITHIN REACH FOR ASSISTANCE BUT BECAUSE OF LETHARGIC CURRENT STATE, NURSING WILL FREQUENT THIS ROOM FOR ANTICIPATED ASSISTANCE. SIDE RAILS UP X FOUR FALL RISK AND SAFETY. HEAD OF BED ELEVATED TO PROMOTE BREATHING AND ASPIRATION PRECAUTION. [email or web address]
--- NOTE | 2021-12-11 19:30 | NUR ---
ULTRASOUND TECHNICIANS WERE NOT ABLE TO GET ANY IMAGING AND REQUESTED TO CLAP THE ALVARADO TO ATTEMPT LATER X 45 MINUTES FOR A BETTER IMAGE FOR THE STUDY. [email or web address]
--- NOTE | 2021-12-11 20:00 | NUR ---
PATIENT'S CARE PLAN WAS DISCUSSED AND REVIEWED WITH TANISHA ONEIL, CALL LIGHT IS WITHIN THE REACH, WILL CONTINUE TO MONITOR PATIENT.
--- NOTE | 2021-12-11 20:25 | NUR ---
ULTRASOUND TECHS HAVE RETURNED FOR A SECOND CHANCE TO CAPTURE IMAGES FROM THE BLADDER. [email or web address]
--- NOTE | 2021-12-11 20:49 | NUR ---
CERTIFIED FLIGHT INSTRUCTOR WERE STILL UNABLE TO GET THE IMAGE. LAST ATTEMPT IN AT 2129 AND IF NO IMAGE THEIR WILL ENDORSE TO AM SHIFT TO ATTEMPT TO GET. [email or web address]
--- NOTE | 2021-12-11 21:31 | NUR ---
DURING ROUNDS NURSING NOTED PATIENT WAS ASLEEP WITHOUT INCIDENT. NURSING WILL CONTINUE TO FREQUENT THE ROOM FOR ANTICIPATED ASSISTANCE. [email or web address]
--- NOTE | 2021-12-11 23:18 | NUR ---
PATIENT'S ALVARADO WAS UNCLAMPED BY THE SHIPPER AND THEY WERE ABLE TO CAPTURE AN IMAGE AND IT WILL BE READ BY MD. PATIENT REMAINS ASLEEP WITHOUT DISTRESS. NO S/S OF PAIN/DISCOMFORT. NURSING WAS ABLE TO NOTED CHEST RISING AND FALLING WITHOUT INCIDENT. [email or web address]
--- NOTE | 2021-12-12 01:24 | NUR ---
PATIENT NOTED ASLEEP WITHOUT INCIDENT. NO NOTED S/S OF PAIN/DISCOMFORT. NO NOTED S/S OF RESPIRATORY DISTRESS. NURSING WILL CONTINUE TO FREQUENT PATIENT ROOM FOR ANTICIPATED NEEDS AND WANTS. [email or web address]
[2021-12-12] MEDS: LORazepam 2 MG/ML VIAL IVP PRN (02:28)
--- NOTE | 2021-12-12 02:28 | NUR ---
PATIENT WOKE UP SEVERELY CONFUSED AND AGITATED. PATIENT ATTEMPTED TO PULL OUT IV. COVERING RN SAPPHIRE WAS ASKED TO GIVE ATIVAN IVP TO ASSIST THE PATIENT WITH HIS AGITATION. PATIENT WAS GIVEN EDUCATION ON THE PURPOSE OF THE ALVARADO. PATIENT WAS UNABLE TO COMPREHEND THE INFORMATION ALTHOUGH NURSING EXPLAINED MORE THAN FIVE TIMES. NURSING WILL CONTINUE TO FREQUENT THIS ROOM FOR ASSISTANCE AND SAFETY. [email or web address]
--- NOTE | 2021-12-12 02:29 | NUR ---
PATENT WAS ANXIOUS GAVE ATIVAN 1MG IV PRN PER DOCTOR ORDER, CALL LIGHT IS WITHIN THE REACH, WILL CONTINUE TO MONITOR PATIENT.
[2021-12-12] MEDS: DEXT 5% /NACL 0.9% 1,000 ML IV SCH ×2 (02:36→11:50)
[2021-12-12 04:00] VITALS: BP 121/77
[2021-12-12] MEDS: PIPERACILLIN/TAZOBACTAM 3.375 GM in DEXTROSE 5% 50 ML IV SCH ×4 (05:01→23:02)
--- NOTE | 2021-12-12 05:56 | NUR ---
PATIENT WAS GIVEN ORAL AND TOTAL BODY CARE. PATIENT WAS ABLE TO TOLERATE IT WELL. NO NOTED BOWEL MOVEMENT. ALVARADO DRAINAGE HAS LIGHTEN UP SINCE PATIENT PULLED ON ALVARADO. WILL INFORM AM SHIFT OF HIS BEHAVIOR DURING SHIFT. [email or web address]
[2021-12-12 06:44] LABS: CARBON DIOXIDE 27.8 mmol/L (21-32); CREATININE 0.7 mg/dL (0.6-1.3); POTASSIUM 3.8 mmol/L (3.5-5.1)
[2021-12-12 06:45] LABS: BASOPHILS % (AUTO) 0.5 % (0.0-2.0); EOSINOPHILS # (AUTO) 0.1 K/uL (0-0.4); HEMATOCRIT 39.6 % (36-52); LYMPHOCYTES % (AUTO) 14.7 % (20.5-51.1); MEAN CORPUSCULAR HEMOGLOBIN 28 pg (27-31); MEAN CORPUSCULAR HGB CONC 33 g/dL (33-37); MEAN CORPUSCULAR VOLUME 85.9 fL (80-94); MONOCYTES # (AUTO) 0.6 K/uL (0.8-1.0); MONOCYTES % (AUTO) 9.4 % (1.7-9.3); NEUTROPHILS # (AUTO) 4.8 K/uL (1.8-7.7); NEUTROPHILS % (AUTO) 73.4 % (42.2-75.2); PLATELET COUNT (AUTO) 241 K/uL (140-450); RED BLOOD CELL COUNT(AUTO) 4.61 MIL/uL (4.20-6.10); RED CELL DISTRIBUTION WIDTH 13.4 % (11.6-13.7); WHITE BLOOD COUNT (AUTO) 6.6 K/uL (4.8-10.8)
[2021-12-12 06:56] LABS: MAGNESIUM 1.7 mg/dL (1.8-2.4); PHOSPHORUS 2.3 mg/dL (2.5-4.9)
--- NOTE | 2021-12-12 07:22 | NUR ---
ENDORSED PATIENT TO ETHAN RN, PATIENT WAS STABLE DURING SHIFT REPORT. [email or web address]
--- NOTE | 2021-12-12 07:22 | NUR ---
RECEIVED REPORT FROM [facility] TANISHA FOR CONTINUITY OF CARE. PT IN STABLE CONDITION, CURRENTLY SLEEPING. PT IS A/OX1, LETHARGIC AND CONFUSED. BREATHING IS EVEN, REGULAR AND UNLABORED ON 3L VIA NASAL CANNULA. PT ALVARADO PATENT AND HUNG TO GRAVITY. PT INCONTINENT OF THE BOWELS. SKIN IS INTACT. NO SIGNS OF PAIN OR DISTRESS NOTED. Addendum: 12/12/21 at 0906 by Jed Caceres RN 2L VIA NASAL CANNULA
[2021-12-12 08:00] VITALS: BP 114/78
--- NOTE | 2021-12-12 08:00 | NUR ---
TITRATED PT FROM 2L TO 1L VIA NASAL CANNULA. PT SPO2 100%, NO SIGNS OF INCREASED DIFFICULTY BREATHING. WILL CONTINUE WEANING OFF SUPPLEMENTAL O2.
[2021-12-12] MEDS: TAMSULOSIN 0.4 MG CAP PO SCH (08:59)
[2021-12-12] MEDS: FAMOTIDINE 20 MG/2 ML VIAL IV SCH ×2 (09:01→21:25)
[2021-12-12] MEDS ORDERED: LORazepam 2 MG/ML VIAL IVP PRN (09:10)
[2021-12-12] MEDS: ENOXAPARIN 40 MG/0.4 ML SYR SUBQ SCH (09:13)
--- NOTE | 2021-12-12 10:18 | NUR ---
PT VISUALLY ASSESSED, CURRENTLY SLEEPING. NO SIGNS OF PAIN OR DISTRESS NOTED.
--- NOTE | 2021-12-12 12:00 | NUR ---
PT VISUALLY ASSESSED, CURRENTLY SLEEPING. NO SIGNS OF PAIN OR DISTRESS NOTED.
--- NOTE | 2021-12-12 13:00 | NUR ---
DISCHARGE PLANNING SW ATTEMPTED FOR THE SECOND TIME TO MEET WITH PATIENT AND TO DISCUSS AND GATHER HIS COLLATERAL INFORMATION. PATIENT WAS NOT AWAKE AGAIN. PATIENT WAS STILL SLEEP AND REGARDLESS OF SEVERAL ATTEMPTS FROM SW TO WAKE HIM UP PATIENT DID NOT RESPOND. SW LEFT THE ROOM AGAIN AND WILL CONTINUE TO ATTEMPT IN ANOTHER TIME. SW WILL FOLLOW UP NEEDED. SW ATTEMPTED TO CONTACT COLETTE MOSS FROM [employer] AT AND TO DISCUSS POSSIBLE INFORMATION ABOUT PATIENT AND POSSIBLE DISCHARGE PLAN. HOWEVER; NO RESPONSE AT THE TIME OF CALL AND SW LEFT HIM A VOICE MAIL MSG WITH DIRECT CONTACT AND A REQUEST FOR A CALL BACK. SW WILL FOLLOW UP NEEDED.
--- NOTE | 2021-12-12 14:24 | NUR ---
HEARD PT SCREAMING, PT WAS FOUND TUGGING ON HIS ALVARADO, SCREAMING TO "GET IT OUT, I NEED TO PEE". BLOOD IN CATHETER, ALVARADO WAS FLUSHED, BALLOON DEFLATED AND REMOVED. CATHETER TIP INTACT. PT WAS ABLE TO KEEP URINATING INDEPENDENTLY BLOODY URINE WITH SMALL CLOTS. ADMINISTERED PRN ATIVAN FOR AGITATION. NOTIFIED DR. ALFARO.
--- NOTE | 2021-12-12 14:53 | NUR ---
PER DR. ALFARO, 1L BOLUS OF NS TO BE ADMINISTERED. PT CURRENTLY SLEEPING.
--- NOTE | 2021-12-12 16:01 | NUR ---
DC PLANNING PATIENT HAS A DC ORDER TO GO TO [facility] [place] [facility] [facility], [facility], [facility] AND [employer] . CM TO FOLLOW Addendum: 12/13/21 at 1234 by Kitty Corona RN DC PLANNING: RECEIVED A CALL FROM [facility] SPOKE WITH ALYCE STATED NO BED AVAILABLE TODAY. [facility] NO BED. AWAIT[place] [facility] AND [facility].CM TO FOLLOW Addendum: 12/14/21 at 1458 by Kitty Corona RN DC PLANNING: RECEIVED A CALL FROM [facility] SPOKE WITH ALYCE STATED SHE CAME TO EVALUATE PATIENT AND PT HAS SOME INAPPROPRIATE ACTION AND FOR THAT PURPOSE DENIED PATIENT. [facility] [place] AND PATIENT BECAUSE OF COVID BREAKOUT , [facility] AND [facility] NO MALE BED AVAILABLE . [facility] AND [facility] NO BED. CM TO FOLLOW
--- NOTE | 2021-12-12 16:09 | NUR ---
ATTEMPTED TO SEE PATIENT FOR PHYSICAL THERAPY TREATMENT HOWEVER AT THIS TIME DROWSY AND UNABLE TO PARTICIPATE 2/2 ATIVAN MEDS GIVEN. WILL FOLLOW UP TOMORROW IF APPROPRIATE; RN AWARE.
--- NOTE | 2021-12-12 16:30 | NUR ---
PT VISUALLY ASSESSED, CURRENTLY SLEEPING. NO SIGNS OF PAIN OR DISTRESS NOTED.
--- NOTE | 2021-12-12 18:08 | NUR ---
PT WAS FOUND WITH IVS REMOVED, NO BLEEDING AT THE SITES. NEW IV WAS INSERTED LEFT UPPER ARM. PT REORIENTATED AND EDUCATED ON NOT REMOVING IVS TO AVOID HARMING SELF.
--- NOTE | 2021-12-12 18:41 | NUR ---
PT VERY AGITATED AND SCREAMING COMPLAINING OF PAINFUL URINATION. YELLOW URINE AND MODERATE BLEEDING FROM URETHRA NOTED. NOTIFIED DR. ALFARO. NEW ORDERS FOR PRNS GIVEN.
[2021-12-12] MEDS ORDERED: KETOROLAC 30 MG/ML VIAL IVP PRN (18:45)
--- NOTE | 2021-12-12 18:50 | NUR ---
ADMINISTERED PRN TORADOL FOR PAIN FACES SCALE 8/10. BED BATH AND LINEN CHANGE PERFORMED. PT VISIBLY CALMER, AND AGREED TO EAT DINNER CALMLY ASSISTED BY TUNG STERN.
--- NOTE | 2021-12-12 19:07 | NUR ---
ENDORSED PT TO NIGHTSHIFT NURSE TANISHA FOR CONTINUITY OF CARE. PT IN STABLE CONDITION.
--- NOTE | 2021-12-12 19:08 | NUR ---
RECEIVED SHIFT REPORT FROM ETHAN WATTS, PATIENT WAS STABLE DURING SHIFT REPORT. PATIENT WAS IN BED ASLEEP AND RESPONSIVE TO NAME. NEW ORDERS TO REDUCE PRN AND GIVE MORE MEDICATION TO ASSIST WITH PATIENT MENTAL HEALTH STATUS. PATIENT IS NOT ON OXYGEN AT THIS TIME AND IS SATURATING AT 92-95%. PATIENT WAS BREATHING ON ROOM AIR WITHOUT INCIDENT. KEPT CLEAN AND DRY. ALVARADO WAS DISCONTINUED BECAUSE OF THE PATIENT PULLING ALVARADO TO CAUSE INJURY TO HIS PENIS CAUSING THE ALVARADO DISCHARGE SANGUINOUS DISCHARGE URINE. SIDE RAILS UP X 3 FOR SAFETY AND REPOSITIONING. CALL LIGHT WITHIN REACH FOR ASSISTANCE. [email or web address]
[2021-12-12 20:00] VITALS: BP 127/68
--- NOTE | 2021-12-12 20:00 | NUR ---
Patient's Plan of Care was discussed and reviewed with TRISTIN ONEIL:
[2021-12-12] MEDS: QUEtiapine FUMARATE 25 MG TAB PO SCH (21:19)
--- NOTE | 2021-12-12 22:03 | NUR ---
COVERING RN ANGELA WAS GIVEN A WRITTEN REPORT OF PATIENT AND IV COVERAGES TO COVER FOR THE ENTIRE SHIFT. ANGELA WAS ENCOURAGED TO CHECK IN THE CHART TO VERIFY THE REPORT AND LOOK FOR ANY UPDATED NEW ORDERS. [email or web address]
--- NOTE | 2021-12-13 01:22 | NUR ---
PATIENT NOTED IN BED ASLEEP. CHEST RISING AND FALLING WITHOUT INCIDENT. NO NOTED S/S OF PAIN/DISCOMFORT. NO NOTED S/S OF RESPIRATORY DISTRESS. CALL LIGHT WITHIN REACH FOR ASSISTANCE BUT NURSING WILL FREQUENT THE ROOM IN ANTICIPATION FOR ASSISTANCE. [email or web address]
--- NOTE | 2021-12-13 03:34 | NUR ---
PATIENT IN BED ASLEEP. NO NOTED S/S OF PAIN/DISCOMFORT. NO NOTED S/S OF RESPIRATORY DISTRESS. NURSING WILL FREQUENT THE ROOM FOR ANTICIPATED ASSISTANCE. NO NOTED S/S OF WITHDRAW. [email or web address]
[2021-12-13 04:00] VITALS: BP 123/84
[2021-12-13] MEDS: PIPERACILLIN/TAZOBACTAM 3.375 GM in DEXTROSE 5% 50 ML IV SCH ×3 (05:00→17:05)
--- NOTE | 2021-12-13 05:04 | NUR ---
PATIENT WAS GIVEN BED BATH AND CHANGE OF ALL LINEN. PATIENT TOLERATED IT WELL. PATIENT REMAINS OFF OXYGEN. PATIENT WAS GIVEN ORAL CARE. ALL ROUTINE MEDICATION WERE GIVEN SCHEDULED. NO COMPLAINTS OF PAIN/DISCOMFORT. NO NOTED RESPIRATORY DISTRESS. SIDE RAILS UP X 2 FOR SAFETY AND ADJUSTMENTS. CALL LIGHT WITHIN REACH BUT NURSING WILL CONTINUE TO FREQUENT THE ROOM FOR ANTICIPATED NEEDS. [email or web address]
[2021-12-13] MEDS: DEXT 5% /NACL 0.9% 1,000 ML IV SCH (06:33)
--- NOTE | 2021-12-13 07:34 | NUR ---
ENDORSED PATIENT TO KADEEM RN (REGISTRY), PATIENT WAS STABLE DURING SHIFT CHANGE. [email or web address]
[2021-12-13 07:35] LABS: CARBON DIOXIDE 25.5 mmol/L (21-32); CREATININE 0.7 mg/dL (0.6-1.3); POTASSIUM 3.5 mmol/L (3.5-5.1)
[2021-12-13 07:39] LABS: MAGNESIUM 1.7 mg/dL (1.8-2.4); PHOSPHORUS 2.7 mg/dL (2.5-4.9)
[2021-12-13 08:04] LABS: BASOPHILS % (AUTO) 0.7 % (0.0-2.0); EOSINOPHILS # (AUTO) 0.3 K/uL (0-0.4); EOSINOPHILS % (AUTO) 5.4 % (0.0-4.0); HEMATOCRIT 38.4 % (36-52); HEMOGLOBIN 12.8 g/dL (12.0-18.0); LYMPHOCYTES # (AUTO) 1.4 K/uL (2.0-11.5); LYMPHOCYTES % (AUTO) 27.4 % (20.5-51.1); MEAN CORPUSCULAR HEMOGLOBIN 28 pg (27-31); MEAN CORPUSCULAR HGB CONC 33 g/dL (33-37); MEAN CORPUSCULAR VOLUME 85.4 fL (80-94); MONOCYTES # (AUTO) 0.5 K/uL (0.8-1.0); MONOCYTES % (AUTO) 10.4 % (1.7-9.3); NEUTROPHILS # (AUTO) 2.8 K/uL (1.8-7.7); NEUTROPHILS % (AUTO) 56.1 % (42.2-75.2); PLATELET COUNT (AUTO) 246 K/uL (140-450); RED CELL DISTRIBUTION WIDTH 13.3 % (11.6-13.7)
[2021-12-13] MEDS: ENOXAPARIN 40 MG/0.4 ML SYR SUBQ SCH (09:04)
[2021-12-13] MEDS: FAMOTIDINE 20 MG/2 ML VIAL IV SCH ×2 (09:04→21:20)
[2021-12-13] MEDS: TAMSULOSIN 0.4 MG CAP PO SCH (09:04)
[2021-12-13] MEDS ORDERED: POTASSIUM CHLORIDE 10 MEQ TABER PO SCH (09:33)
[2021-12-13] MEDS ORDERED: MAG SULF 2000 MG/WATER PREMIX 50 ML IV SCH (09:33)
--- NOTE | 2021-12-13 19:30 | NUR ---
RECEIVED REPORT FROM DAY SHIFT NURSE FOR CONTINUITY OF CARE. PATIENT IS AWAKE WELL RESTED ON ROOM AIR. NO SOB. NO COMPLAINTS OF PAIN. ALL SAFETY PRECAUTIONS ARE IN PLACE. CALL LIGHT WITHIN REACH. WILL CONTINUE TO MONITOR.
[2021-12-13] MEDS: QUEtiapine FUMARATE 25 MG TAB PO SCH (21:19)
--- NOTE | 2021-12-13 21:19 | NUR ---
ALL SCHEDULED MEDICATIONS GIVEN PER MD ORDER.
[2021-12-14] VITALS: BP 131/81
[2021-12-14] MEDS: PIPERACILLIN/TAZOBACTAM 3.375 GM in DEXTROSE 5% 50 ML IV SCH ×4 (00:35→17:32)
--- NOTE | 2021-12-14 03:20 | NUR ---
PATIENT SLEEPING. BREATHING NORMAL WITH SYMMETRICAL RISE AND FALL OF THE CHEST.
--- NOTE | 2021-12-14 05:41 | NUR ---
ZOSYN ADMINISTERED PER MD ORDER.
--- NOTE | 2021-12-14 06:29 | NUR ---
PATIENT HAD X1 EPISODE OF HEMATURIA. DR. ALFARO MADE AWARE. AWAITING FOR REPLY.
[2021-12-14 06:52] LABS: BASOPHILS # (AUTO) 0.1 K/uL (0.00-0.22); BASOPHILS % (AUTO) 1.1 % (0.0-2.0); EOSINOPHILS # (AUTO) 0.3 K/uL (0-0.4); EOSINOPHILS % (AUTO) 6.4 % (0.0-4.0); HEMATOCRIT 44.5 % (36-52); HEMOGLOBIN 14.8 g/dL (12.0-18.0); LYMPHOCYTES # (AUTO) 1.7 K/uL (2.0-11.5); LYMPHOCYTES % (AUTO) 33.1 % (20.5-51.1); MEAN CORPUSCULAR HEMOGLOBIN 29 pg (27-31); MEAN CORPUSCULAR HGB CONC 33 g/dL (33-37); MEAN CORPUSCULAR VOLUME 86.2 fL (80-94); MONOCYTES # (AUTO) 0.5 K/uL (0.8-1.0); MONOCYTES % (AUTO) 10.4 % (1.7-9.3); NEUTROPHILS # (AUTO) 2.5 K/uL (1.8-7.7); PLATELET COUNT (AUTO) 297 K/uL (140-450); RED BLOOD CELL COUNT(AUTO) 5.17 MIL/uL (4.20-6.10); RED CELL DISTRIBUTION WIDTH 13.4 % (11.6-13.7); WHITE BLOOD COUNT (AUTO) 5.1 K/uL (4.8-10.8)
[2021-12-14 07:18] LABS: CARBON DIOXIDE 23.2 mmol/L (21-32); CREATININE 0.8 mg/dL (0.6-1.3); POTASSIUM 4.2 mmol/L (3.5-5.1)
--- NOTE | 2021-12-14 07:20 | NUR ---
ENDORSED PATIENT TO MORNING SHIFT NURSE FOR CONTINUITY OF CARE.
--- NOTE | 2021-12-14 07:21 | NUR ---
RECEIVED BEDSIDE REPORT FROM PSYCHOLOGY PHYSICIAN NURSE KATELIN RN, PT RESTING, NO DISTRESS NOTED, PT ON RA WITH NO SOB, SKIN INTACT, PT IS A&OX1 , CONFUSED AND LETHARGIC AT TIMES. PT IS ON BEDREST, USES A URINAL WHEN NEEDED AND LAST BM WAS THIS MORNING. IV TO THE R FOREARM 22G PATENT, INTACT, SALINE LOCK. INITIAL ASSESSMENT DONE, ALL SAFETY PRECAUTIONS MET, CALL LIGHT WITHIN REACH, WILL CONTINUE TO MONITOR.
[2021-12-14 07:26] LABS: MAGNESIUM 1.8 mg/dL (1.8-2.4)
[2021-12-14 08:00] VITALS: BP 125/73
[2021-12-14] MEDS: FAMOTIDINE 20 MG/2 ML VIAL IV SCH ×2 (08:32→20:49)
[2021-12-14] MEDS: TAMSULOSIN 0.4 MG CAP PO SCH (08:32)
[2021-12-14] MEDS: ENOXAPARIN 40 MG/0.4 ML SYR SUBQ SCH (09:00)
--- NOTE | 2021-12-14 09:10 | NUR ---
SCHEDULED MEDS ADMINISTERED BY STEFANIE HECTOR. NON-ADMIT LOVENOX PER MD. PT HAD EPISODE OF HEMATURIA DURING THE NIGHT. WILL CONTINUE TO MONITOR.
--- NOTE | 2021-12-14 11:30 | NUR ---
IV ZOSYN ADMINISTERED BY STEFANIE HECTOR. NO ADVERSE REACTION NOTED. WILL CONTINUE TO MONITOR.
--- NOTE | 2021-12-14 13:00 | NUR ---
PT RESTING IN BED, NO LABORED BREATHING. WILL CONTINUE TO MONITOR.
[2021-12-14] MEDS ORDERED: MAG SULF 2000 MG/WATER PREMIX 50 ML IV SCH (15:00)
--- NOTE | 2021-12-14 15:05 | NUR ---
PT PROVIDED A SNACK AND SOME JUICE. ALL PTS NEED MEET AT THIS TIME. WILL CONTINUE TO MONITOR.
--- NOTE | 2021-12-14 15:23 | NUR ---
IV MG ADMINISTERED BY STEFANIE HECTOR. WILL CONTINUE TO MONITOR.
[2021-12-14 16:00] VITALS: BP 124/71
--- NOTE | 2021-12-14 17:35 | NUR ---
IV ZOSYN ADMINISTERED BY RN. NO ADVERSE REACTION NOTED. WILL CONTINUE TO MONITOR.
--- NOTE | 2021-12-14 19:12 | NUR ---
ENDORSED PT TO SUPPLY CHAIN GENERALIST NURSE FOR CONTINUITY OF CARE. ALL NEEDS MET THROUGHOUT SHIFT. PT IS STABLE.
--- NOTE | 2021-12-14 19:13 | NUR ---
RECEIVED REPORT FROM DAYS SHIFT NURSE. PATIENT SLEEPING. RESPIRATION EVEN UNLABORED. SAFETY PRECAUTIONS ARE IN PLACE. CALL LIGHT WITHIN REACH. WILL CONTINUE TO MONITOR PT.
[2021-12-14] MEDS: QUEtiapine FUMARATE 25 MG TAB PO SCH (20:49)
--- NOTE | 2021-12-14 20:50 | NUR ---
SCHEDULED MEDICATIONS ADMINISTERED PER MD ORDER.
[2021-12-15] VITALS: BP 138/92
[2021-12-15] MEDS: PIPERACILLIN/TAZOBACTAM 3.375 GM in DEXTROSE 5% 50 ML IV SCH (00:58)
--- NOTE | 2021-12-15 02:05 | NUR ---
PATIENT SLEEPING , ON ROOM AIR. BREATHING NORMAL WITH SYMMETRICAL RISE AND FALL OF THE CHEST.
--- NOTE | 2021-12-15 02:50 | NUR ---
CRACKERS AND JUICE SERVED PER PATIENT REQUEST.
[2021-12-15 06:46] LABS: ANION GAP 14.3 (8-16); BASOPHILS % (AUTO) 0.5 % (0.0-2.0); CARBON DIOXIDE 25.6 mmol/L (21-32); CREATININE 0.8 mg/dL (0.6-1.3); EOSINOPHILS # (AUTO) 0.4 K/uL (0-0.4); EOSINOPHILS % (AUTO) 6.5 % (0.0-4.0); HEMATOCRIT 41.8 % (36-52); LYMPHOCYTES # (AUTO) 1.9 K/uL (2.0-11.5); LYMPHOCYTES % (AUTO) 32.2 % (20.5-51.1); MEAN CORPUSCULAR HEMOGLOBIN 28 pg (27-31); MEAN CORPUSCULAR HGB CONC 34 g/dL (33-37); MEAN CORPUSCULAR VOLUME 84.4 fL (80-94); MONOCYTES # (AUTO) 0.7 K/uL (0.8-1.0); MONOCYTES % (AUTO) 12.5 % (1.7-9.3); NEUTROPHILS # (AUTO) 2.8 K/uL (1.8-7.7); NEUTROPHILS % (AUTO) 48.3 % (42.2-75.2); PLATELET COUNT (AUTO) 321 K/uL (140-450); POTASSIUM 3.9 mmol/L (3.5-5.1); RED BLOOD CELL COUNT(AUTO) 4.95 MIL/uL (4.20-6.10); RED CELL DISTRIBUTION WIDTH 13.6 % (11.6-13.7); WHITE BLOOD COUNT (AUTO) 5.8 K/uL (4.8-10.8)
[2021-12-15 06:50] LABS: MAGNESIUM 2.1 mg/dL (1.8-2.4); PHOSPHORUS 4.2 mg/dL (2.5-4.9)
--- NOTE | 2021-12-15 07:09 | NUR ---
ENDORSED PATIENT TO MORNING SHIFT NURSE FOR CONTINUITY OF CARE.
--- NOTE | 2021-12-15 07:10 | NUR ---
RECEIVED PT FROM DRIER BELT CONVEYOR NURSE FOR CONTINUITY OF CARE. PT SLEEPING, EASILY AROUSABLE BY VERBAL STIMULI. RESPIRATIONS EVEN AND UNLABORED ON RA. NO DISTRESS NOTED. NO COMPLAINTS OF PAIN. IV SITE ON RFA, 22G, SL. CALL LIGHT WITHIN REACH. SAFETY PRECAUTIONS IN PLACE. WILL CONTINUE TO MONITOR.
[2021-12-15 08:00] VITALS: BP 132/83
[2021-12-15] MEDS ORDERED: TAMSULOSIN 0.4 MG CAP PO SCH (08:30)
[2021-12-15] MEDS: FAMOTIDINE 20 MG/2 ML VIAL IV SCH ×2 (08:58→20:03)
--- NOTE | 2021-12-15 09:00 | NUR ---
SCHEDULED MEDICATIONS DUE GIVEN. WILL CONTINUE TO MONITOR.
[2021-12-15] MEDS: TAMSULOSIN 0.4 MG CAP PO SCH (09:12)
[2021-12-15] MEDS: ENOXAPARIN 40 MG/0.4 ML SYR SUBQ SCH (09:13)
--- NOTE | 2021-12-15 09:16 | NUR ---
ADMINISTERED SCHEDULED MORNING MEDS. PT TEACHING ABOUT MEDS GIVEN. PT VERBALIZED UNDERSTANDING. WILL CONTINUE TO MONITOR.
--- NOTE | 2021-12-15 12:15 | NUR ---
PT SITTING IN BED, EATING LUNCH. NO DISTRESS NOTED. NO COMPLAINTS OF PAIN. WILL CONTINUE TO MONITOR.
--- NOTE | 2021-12-15 15:25 | NUR ---
PT ASKED FOR SNACKS. PT GIVEN SANDWICH AND JUICE. NO DISTRESS NOTED. WILL CONTINUE TO MONITOR.
[2021-12-15 16:00] VITALS: BP 139/89
--- NOTE | 2021-12-15 19:26 | NUR ---
ENDORSED PT TO APARTMENT MAINTENANCE TECHNICIAN NURSE FOR CONTINUITY OF CARE. ALL NEEDS MET THROUGHOUT SHIFT. PT IS STABLE.
--- NOTE | 2021-12-15 19:30 | NUR ---
RECEIVED REPORT FROM DAY SHIFT NURSE SUSAN. PATIENT IS A&O X2-3. PATIENT IS ON ROOM AIR, BREATHING IS NORMAL WITH SYMMETRICAL RISE AND FALL OF CHEST. IV IS A 22G RIGHT FORE ARM, RUNNING NO FLUIDS AT THIS TIME (SALINE LOCKED). PATIENT IS SLEEPING, LYING ON SIDE. BED IS IN LOWEST POSITION, WHEELS LOCKED, CALL LIGHT IN PLACE. WILL CONTINUE TO OBSERVE PATIENT.
[2021-12-15 20:00] VITALS: BP 130/83
[2021-12-15] MEDS: QUEtiapine FUMARATE 25 MG TAB PO SCH (20:05)
--- NOTE | 2021-12-15 20:05 | NUR ---
OBTAINED PATIENT'S 2000 VITALS. VITALS WERE: BP 130/83, TEMP 98.6, HR 88, O2 95%, RR 18. PATIENT WAS SLEEPING UPON ENTERING THE ROOM. WOKE PATIENT UP TO TAKE VITALS AND ADMINISTER 2100 MEDICATION. PATIENT TOLERATED MEDICATION WELL. IV SITE WAS FLUSHED BEFORE ADMINISTERING IVPB AND WAS PATENT. PATIENT WAS COOPERATIVE DURING ADMINISTRATION OF MEDICATION AND LAID DOWN TO GO BACK TO SLEEP AFTERWARDS. WILL CONTINUE TO OBSERVE PATIENT.
--- NOTE | 2021-12-15 22:30 | NUR ---
LOOKED IN ON PATIENT. PATIENT WAS SLEEPING, LYING ON HIS SIDE WITH THE BLANKET PULLED UP TO HIS SHOULDERS. NO FLUIDS ARE RUNNING AT THIS TIME. BREATHING WAS NORMAL WITH SYMMETRICAL RISE AND FALL OF CHEST. BED WAS IN LOWEST POSITION, WHEELS LOCKED, CALL LIGHT IN PLACE.
--- NOTE | 2021-12-16 00:55 | NUR ---
EMPTIED 650ML OF URINE FROM PATIENT. PATIENT IS SLEEPING SUPINE IN BED. NO IV FLUIDS RUNNING AT THIS TIME (SALINE LOCKED). BREATHING WAS NORMAL WITH SYMMETRICAL RISE AND FALL OF CHEST. WILL CONTINUE TO OBSERVE PATIENT.
[2021-12-16 04:00] VITALS: BP 130/83
--- NOTE | 2021-12-16 04:00 | NUR ---
EMPTIED 150ML OF URINE FROM PATIENT. PATIENT WAS SLEEPING. WOKE PATIENT UP TO OBTAIN 0400 VITALS, VITALS WERE: BP 130/83, TEMP 98.4, HR 73, O2 97, RR 18. BP WAS SAME 1999, BP WAS RECHECKED AND IS ACCURATE. WILL CONTINUE TO OBSERVE PATIENT.
--- NOTE | 2021-12-16 05:00 | NUR ---
PATIENT REQUESTED ANOTHER BLANKET. WENT INTO ROOM TO GIVE PATIENT ANOTHER BLANKET. PATIENT WAS SLEEPING. PLACED BLANKET OVER PATIENT. WILL CONTINUE TO OBSERVE PATIENT.
--- NOTE | 2021-12-16 06:45 | NUR ---
LOOKED IN ON PATIENT. PATIENT WAS SLEEPING, LYING ON SIDE AND COVERED UP. BREATHING WAS NORMAL WITH SYMMETRICAL RISE AND FALL OF CHEST. WILL CONTINUE TO OBSERVE PATIENT.
[2021-12-16 06:55] LABS: ANION GAP 11.9 (8-16); CARBON DIOXIDE 23.9 mmol/L (21-32); CREATININE 0.8 mg/dL (0.6-1.3); POTASSIUM 3.8 mmol/L (3.5-5.1)
[2021-12-16 07:01] LABS: BASOPHILS # (AUTO) 0.2 K/uL (0.00-0.22); BASOPHILS % (AUTO) 2.4 % (0.0-2.0); EOSINOPHILS # (AUTO) 0.3 K/uL (0-0.4); EOSINOPHILS % (AUTO) 4.7 % (0.0-4.0); HEMATOCRIT 40.7 % (36-52); HEMOGLOBIN 13.7 g/dL (12.0-18.0); LYMPHOCYTES # (AUTO) 2.3 K/uL (2.0-11.5); LYMPHOCYTES % (AUTO) 31.6 % (20.5-51.1); MEAN CORPUSCULAR HEMOGLOBIN 29 pg (27-31); MEAN CORPUSCULAR HGB CONC 34 g/dL (33-37); MEAN CORPUSCULAR VOLUME 84.6 fL (80-94); MONOCYTES # (AUTO) 0.8 K/uL (0.8-1.0); MONOCYTES % (AUTO) 11.1 % (1.7-9.3); NEUTROPHILS # (AUTO) 3.6 K/uL (1.8-7.7); NEUTROPHILS % (AUTO) 50.2 % (42.2-75.2); PLATELET COUNT (AUTO) 324 K/uL (140-450); RED BLOOD CELL COUNT(AUTO) 4.81 MIL/uL (4.20-6.10); RED CELL DISTRIBUTION WIDTH 13.4 % (11.6-13.7); WHITE BLOOD COUNT (AUTO) 7.1 K/uL (4.8-10.8)
[2021-12-16 07:04] LABS: MAGNESIUM 1.8 mg/dL (1.8-2.4); PHOSPHORUS 3.8 mg/dL (2.5-4.9)
--- NOTE | 2021-12-16 07:30 | NUR ---
EMPTIED 400ML OF URINE. PATIENT WAS LYING AWAKE IN BED. WILL ENDORSE TO DAY SHIFT NURSE.
--- NOTE | 2021-12-16 07:45 | NUR ---
ENDORSED TO DAY SHIFT NURSE ETHAN FOR CONTINUITY OF CARE. PATIENT IS STABLE.
--- NOTE | 2021-12-16 07:45 | NUR ---
RECEIVED REPORT FROM NIGHTSHIFT NURSE HYACINTH FOR CONTINUITY OF CARE. PT IS IN STABLE CONDITION, CURRENTLY SLEEPING. A/OX3, BREATHING EVEN, REGULAR AND UNLABORED ON ROOM AIR. PT IS CONTINENT OF THE BOWEL AND BLADDER. PT REPORTED BLOOD IN HIS URINE AGAIN THIS MORNING. PT IS ABLE TO AMBULATE WITH ASSISTANCE. PT SKIN IS INTACT, IV CLEAN, DRY AND PATENT. NO SIGNS OF PAIN OR DISTRESS NOTED AT THIS TIME.
[2021-12-16] MEDS ORDERED: HYDRAGUARD CREAM TP SCH (08:00)
[2021-12-16] MEDS: FAMOTIDINE 20 MG/2 ML VIAL IV SCH (09:48)
[2021-12-16] MEDS: ENOXAPARIN 40 MG/0.4 ML SYR SUBQ SCH (09:49)
[2021-12-16] MEDS: TAMSULOSIN 0.4 MG CAP PO SCH (09:49)
--- NOTE | 2021-12-16 11:30 | NUR ---
DR. ALFARO IN TO SEE PTMD NOTIFIED OF BLEEDING FROM [facility]. 500ML BOLUS OF NS TO BE GIVEN.
--- NOTE | 2021-12-16 14:16 | NUR ---
PT STATED HE WISHED TO TO GO AMA. PT IS ALERT AND ABLE TO ANSWER ORIENTATION QUESTIONS APPROPRIATELY. DR. ALFARO NOTIFIED AND AWARE.
--- NOTE | 2021-12-16 14:26 | NUR ---
EDUCATED PT ON LEAVING AMA, PT WAS ABLE TO VERBALIZE UNDERSTANDING AND SIGNED AMA FORM APPROPRIATELY. IV AND ID BAND REMOVED. PT ABLE TO AMBULATE, BUT REQUESTED A SWEATER AND BELT. SECURITY NOTIFIED.
--- NOTE | 2021-12-16 14:48 | NUR ---
PT WAS ABLE TO AMBULATE TO FRONT LOBBY ON STEADY GAIT. BELT AND SWEATER GIVEN VIA SECURITY. PT IN STABLE CONDITION.
== END 2021-12-16 14:50 | disposition left against medical advice (07) | DRG 812 ==
LOC: MED 16:09 → MMU 23:50 → MIC 12-10 04:29 → MTU 12-10 20:00
PROVIDERS: ADMIT Hospitalist; ATTEND Hospitalist
DX: T50.911A Poisoning by multiple unspecified drugs, medicaments and biological substances, accidental (unintentional), initial encounter (principal); J96.01 Acute respiratory failure with hypoxia; G92.8 Other toxic encephalopathy; J96.02 Acute respiratory failure with hypercapnia; E44.1 Mild protein-calorie malnutrition; E83.51 Hypocalcemia; R65.10 Systemic inflammatory response syndrome (SIRS) of non-infectious origin without acute organ dysfunction; F12.10 Cannabis abuse, uncomplicated; F15.10 Other stimulant abuse, uncomplicated; R33.9 Retention of urine, unspecified; Z20.822 Contact with and (suspected) exposure to COVID-19; Z79.1 Long term (current) use of non-steroidal anti-inflammatories (NSAID); Z79.899 Other long term (current) drug therapy; Y92.89 Other specified places as the place of occurrence of the external cause; Z68.24 Body mass index [BMI] 24.0-24.9, adult
CPT/HCPCS: 36415; 36600; 70450; 71045; 76700; 76856; 80048; 80053; 80305; 82140; 82803; 83036; 83735; 83880; 84100; 85025; 87040; 87081; 92526; 96361; 96374; 96375; 96376; 97110; 97112; 97116; 97530; 99291; G0480; G0482; J1650; J1885; J2060; J2310; J2543; J3475; J3490; J7060; Q0092

== ENCOUNTER 2022-01-12 03:17 | Emergency (ER) | payer OTHER ==
[~2022-01-12] VITALS: Ht 185.4 cm; Wt 70.8 kg
[2022-01-12 03:46] VITALS: BP 139/93
--- NOTE | 2022-01-12 03:52 | NUR ---
PATIENT AMBULATED TO LOBBY IN STABLE CONDITION
--- NOTE | 2022-01-12 04:30 | NUR ---
SEEN AND EXAMINED BY YAMILETH
[2022-01-12 04:42] VITALS: BP 139/93
== END 2022-01-12 04:42 | disposition home or self-care (01) ==
LOC: MED 03:17
DX: M79.671 Pain in right foot (principal); I25.2 Old myocardial infarction; Z79.899 Other long term (current) drug therapy
CPT/HCPCS: 99281

== ENCOUNTER 2022-02-20 05:55 | Emergency (ER) | payer OTHER ==
[~2022-02-20] VITALS: Ht 185.4 cm; Wt 69.9 kg
[2022-02-20 06:04] VITALS: BP 129/79
--- NOTE | 2022-02-20 06:09 | NUR ---
Dr. Brooks examining patient.
[2022-02-20 06:14] VITALS: BP 129/79
== END 2022-02-20 06:14 | disposition home or self-care (01) ==
LOC: MED 05:55
DX: G89.29 Other chronic pain (principal); M79.671 Pain in right foot; I25.2 Old myocardial infarction; Z79.899 Other long term (current) drug therapy
CPT/HCPCS: 99281

== ENCOUNTER 2022-03-04 03:31 | Emergency (ER) | payer OTHER ==
[~2022-03-04] VITALS: Ht 185.4 cm; Wt 74.8 kg
[2022-03-04 04:42] VITALS: BP 140/90
--- NOTE | 2022-03-04 04:45 | NUR ---
TO LOBBY A/W BED AMBULATORY
[2022-03-04] MEDS ORDERED: SULF-59 PO (05:26)
--- NOTE | 2022-03-04 05:30 | NUR ---
Patient discharged with v/s stable. Written and verbal after care instructions given and explained. Patient alert, oriented and verbalized understanding of instructions. Ambulatory with steady gait. All questions addressed prior to discharge. ID band removed. Patient advised to follow up with PMD. Rx of BACTRIM given.
== END 2022-03-04 05:30 | disposition home or self-care (01) ==
LOC: MED 03:31
DX: L03.114 Cellulitis of left upper limb (principal); L03.116 Cellulitis of left lower limb
CPT/HCPCS: 99283

== ENCOUNTER 2023-05-06 03:00 | Emergency (ER) | payer OTHER ==
[~2023-05-06] VITALS: Ht 185.4 cm; Wt 77.1 kg
[~2023-05-06 03:00] MED LIST changes: +ACET-10509 PO; +ACET-2619 PO; +DIAZ2TAB6 PO; +HYDR-2734 TP; +IBUP-1842 PO; +LIDO454G TP; +NAPR-1704 PO; +NAPR-54 PO; +SULF-59 PO
[2023-05-06 03:12] VITALS: BP 152/97; PULSE 89; RESP 18; TEMP 98.6; O2SAT 99
[2023-05-06] MEDS ORDERED: NAPR-54 PO (06:32)
[2023-05-06] MEDS: IBUPROFEN 600 MG TAB PO ONE (06:44)
[2023-05-06 06:46] VITALS: BP 152/97; PULSE 89; RESP 18; TEMP 98.6; O2SAT 99
== END 2023-05-06 06:46 | disposition home or self-care (01) ==
LOC: MED 03:00
DX: M21.611 Bunion of right foot (principal); Z76.0 Encounter for issue of repeat prescription; Z59.00 Homelessness unspecified; I25.2 Old myocardial infarction; Z79.899 Other long term (current) drug therapy
CPT/HCPCS: 99281; 99282

== ENCOUNTER 2023-06-07 02:52 | Emergency (ER) | payer OTHER ==
[~2023-06-07] VITALS: Ht 188 cm; Wt 77.1 kg
[2023-06-07 03:02] VITALS: BP 134/99; PULSE 88; RESP 16; TEMP 97.2; O2SAT 100
[2023-06-07 05:03] VITALS: BP 134/99; PULSE 84; RESP 16; TEMP 97.2; O2SAT 100
== END 2023-06-07 05:03 | disposition home or self-care (01) ==
LOC: MED 02:52
DX: S93.602A Unspecified sprain of left foot, initial encounter (principal); S93.601A Unspecified sprain of right foot, initial encounter; I25.2 Old myocardial infarction; Z79.1 Long term (current) use of non-steroidal anti-inflammatories (NSAID); Z79.899 Other long term (current) drug therapy; Z59.00 Homelessness unspecified; X58.XXXA Exposure to other specified factors, initial encounter; Y93.01 Activity, walking, marching and hiking; Y92.89 Other specified places as the place of occurrence of the external cause; Y99.8 Other external cause status
CPT/HCPCS: 29540; 99281; 99283

== ENCOUNTER 2023-07-05 18:33 | Emergency (ER) | payer OTHER ==
[~2023-07-05] VITALS: Ht 185.4 cm; Wt 68.0 kg
[~2023-07-05 18:33] MED LIST changes: +NAPR-337 PO; -NAPR-54 PO
[2023-07-05 18:52] VITALS: BP 119/73; PULSE 70; RESP 22; TEMP 99.8; O2SAT 97
[2023-07-05] MEDS: ONDANSETRON 4 MG ODT PO ONE (21:25)
[2023-07-05 21:38] LABS: HEMOGLOBIN 15.5 g/dL (12.0-18.0); MEAN CORPUSCULAR HEMOGLOBIN 29 pg (27-31); MEAN CORPUSCULAR HGB CONC 34 g/dL (33-37); MEAN CORPUSCULAR VOLUME 84.8 fL (80-94)
[2023-07-05 21:49] LABS: ANION GAP 21.2 (8-16); CALCIUM 9.8 mg/dL (8.5-10.1); CARBON DIOXIDE 22.3 mmol/L (21-32); CREATININE 2.6 mg/dL (0.6-1.3); POTASSIUM 4.5 mmol/L (3.5-5.1)
[2023-07-05 22:01] LABS: ALBUMIN 4.7 g/dL (3.4-5.0); BILIRUBIN,DIRECT 0.4 mg/dL (0.0-0.3); TOTAL BILIRUBIN 1.6 mg/dL (0.0-1.0); TOTAL PROTEIN, SERUM 9.6 g/dL (6.4-8.2)
[2023-07-05 22:07] LABS: HEMATOCRIT 45.8 % (36-52); PLATELET COUNT (AUTO) 298 K/uL (140-450); RED BLOOD CELL COUNT(AUTO) 5.41 MIL/uL (4.20-6.10); RED CELL DISTRIBUTION WIDTH 13.2 % (11.6-13.7); WHITE BLOOD COUNT (AUTO) 18.1 K/uL (4.8-10.8)
[2023-07-05 23:03] LABS: PLATELET COUNT,MANUAL 300 K/uL (150-450)
[2023-07-05 23:04] LABS: BASOPHILS % (AUTO) 0.4 % (0.0-2.0); LYMPHOCYTES # (AUTO) 1.1 K/uL (2.0-11.5); LYMPHOCYTES % (AUTO) 5.9 % (20.5-51.1); MONOCYTES # (AUTO) 1.4 K/uL (0.8-1.0); MONOCYTES % (AUTO) 7.8 % (1.7-9.3); NEUTROPHILS # (AUTO) 15.7 K/uL (1.8-7.7); NEUTROPHILS % (AUTO) 85.9 % (42.2-75.2)
[2023-07-05 23:05] LABS: ANISOCYTOSIS 1+; BASOPHILS # (AUTO) 0.1 K/uL (0.00-0.22); BASOPHILS % (MANUAL) 0 % (0-2); EOSINOPHILS % (MANUAL) 0 % (0-4); LYMPHOCYTES % (MANUAL) 9 % (20-46); MONOCYTES % (MANUAL) 7 % (5-12)
[2023-07-06] MEDS ORDERED: OMEP20EC11 PO (01:41)
[2023-07-06] MEDS ORDERED: ONDA-188 SL (01:41)
[2023-07-06 02:50] VITALS: BP 119/73; PULSE 70; RESP 22; TEMP 99.8; O2SAT 97
== END 2023-07-06 02:50 | disposition home or self-care (01) ==
LOC: MED 18:33
DX: N28.9 Disorder of kidney and ureter, unspecified (principal); I25.2 Old myocardial infarction; Z79.1 Long term (current) use of non-steroidal anti-inflammatories (NSAID); Z79.899 Other long term (current) drug therapy
CPT/HCPCS: 36415; 74176; 80048; 80076; 83690; 85025; 99284; Q0162

== ENCOUNTER 2023-12-17 22:12 | Emergency (ER) | payer OTHER ==
[~2023-12-17] VITALS: Ht 185.4 cm; Wt 72.6 kg
[~2023-12-17 22:12] MED LIST changes: -ACET-10509 PO; +ACET500T99 PO; +BACI-418 TP; +BACTO TP; +CEPH-588 PO; +OMEP20EC11 PO; +ONDA-188 SL
[2023-12-17 22:34] VITALS: BP 132/87; PULSE 92; RESP 16; TEMP 97.5; O2SAT 96
== END 2023-12-18 02:34 | disposition home or self-care (01) ==
LOC: MED 22:12
DX: F19.10 Other psychoactive substance abuse, uncomplicated (principal); Z76.5 Malingerer [conscious simulation]; I25.2 Old myocardial infarction; I10 Essential (primary) hypertension; Z79.899 Other long term (current) drug therapy
CPT/HCPCS: 99281

== ENCOUNTER 2023-12-22 02:15 | Emergency (ER) | payer OTHER ==
[~2023-12-22] VITALS: Ht 185.4 cm; Wt 66.8 kg
[2023-12-22 02:22] VITALS: BP 125/87; PULSE 90; RESP 18; TEMP 98.3; O2SAT 95
[2023-12-22] MEDS: hydrOXYzine PAMOATE 25 MG CAP PO STA (02:51)
[2023-12-22] MEDS ORDERED: HYDR-637 PO (03:42)
[2023-12-22] MEDS ORDERED: SULF-59 PO (03:42)
[2023-12-22 03:53] VITALS: BP 125/87; PULSE 90; RESP 18; TEMP 98.3; O2SAT 95
== END 2023-12-22 03:52 | disposition home or self-care (01) ==
LOC: MED 02:15
DX: S31.000A Unspecified open wound of lower back and pelvis without penetration into retroperitoneum, initial encounter (principal); S81.802A Unspecified open wound, left lower leg, initial encounter; S81.801A Unspecified open wound, right lower leg, initial encounter; L08.9 Local infection of the skin and subcutaneous tissue, unspecified; F42.4 Excoriation (skin-picking) disorder; F15.90 Other stimulant use, unspecified, uncomplicated; I25.2 Old myocardial infarction; I10 Essential (primary) hypertension; Z79.899 Other long term (current) drug therapy; X58.XXXA Exposure to other specified factors, initial encounter; Y92.89 Other specified places as the place of occurrence of the external cause; Y93.89 Activity, other specified; Y99.8 Other external cause status
CPT/HCPCS: 99283; Q0177

== ENCOUNTER 2023-12-26 01:25 | Emergency (ER) | payer OTHER ==
[~2023-12-26] VITALS: Ht 185.4 cm; Wt 72.6 kg
[~2023-12-26 01:25] MED LIST changes: +HYDR-637 PO
[2023-12-26 01:32] VITALS: BP 139/95; PULSE 93; RESP 16; TEMP 98; O2SAT 99
[2023-12-26] MEDS: IBUPROFEN 600 MG TAB PO ONE (02:06)
[2023-12-26 02:21] VITALS: BP 139/95; PULSE 93; RESP 16; TEMP 98; O2SAT 99
== END 2023-12-26 02:20 | disposition home or self-care (01) ==
LOC: MED 01:25
DX: M25.552 Pain in left hip (principal); I25.2 Old myocardial infarction; I10 Essential (primary) hypertension; Z79.899 Other long term (current) drug therapy
CPT/HCPCS: 73502; 99283